=== PATIENT | female | born 1940 | race Caucasian/White ===

== ENCOUNTER 2018-10-08 06:39 | Emergency (ER) | payer MEDICARE ==
[~2018-10-08] VITALS: Ht 162.6 cm; Wt 90.7 kg
[~2018-10-08 06:39] MED LIST: ZITHROMAX250 MG PO
[2018-10-08] MEDS ORDERED: DOXYCYCLINE HY100 MG PO (08:21)
[2018-10-08] MEDS ORDERED: IBUPROFEN600 MG PO (08:21)
== END 2018-10-08 08:25 | disposition home or self-care (01) ==
LOC: ED 06:39
DX: J02.9 Acute pharyngitis, unspecified (principal)
CPT/HCPCS: 71045; 80053; 84443; 85025; 99283-25

== ENCOUNTER 2022-05-15 19:17 | Emergency (ER) | payer MEDICARE ==
[~2022-05-15] VITALS: Ht 162.6 cm; Wt 90.7 kg
[~2022-05-15 19:17] MED LIST changes: +DOXYCYCLINE HY100 MG PO; +IBUPROFEN600 MG PO
--- OUTSIDE RECORDS SUMMARY | 2022-05-15 19:24 | XMS ---
PreManage Notification: CORIN WILKINSON Security Cto Events No recent Security Events currently on file CRITERIA MET - Group Notification CARE PROVIDERS There are no care providers on record at this time. [facility] has no Care Guidelines for this patient. Daniel VISIT COUNT (12 MO.) 1 ANGELO [place] TOTAL 1 NOTE: Visits indicate total known visits. ED/C VISIT TRACKING (12 MO.) 05/15/2022 19:17 [facility] TYPE: Emergency COMPLAINT: - STROKE SYMPTOMS INPATIENT VISIT TRACKING (12 MO.) No inpatient visits to display in this time frame [email or web address]
--- NOTE | 2022-05-17 18:01 | EKG ---
[facility] [address] [facility] [place] [address] Signed Normal sinus rhythm Right bundle branch block Inferior infarct , age undetermined Abnormal ECG No previous ECGs available Confirmed by NICOLE BAUMAN MD ([id number]) on 05/17/2022 6:00:52 PM Electronically Signed By: NICOLE BAUMAN MD 05/17/221800 PATIENT NAME: CORIN WILKINSON JOSE CRUZ Electrocardiogram DATE OF : 38 PHYSICIAN: NICOLE BAUMAN MD REPORT #: [id number] REPORT IS CONFIDENTIAL AND NOT TO BE RELEASED WITHOUT AUTHORIZATION
== END 2022-05-16 02:21 | disposition short-term general hospital (02) ==
LOC: ED 19:17
DX: I21.4 Non-ST elevation (NSTEMI) myocardial infarction (principal); G40.909 Epilepsy, unspecified, not intractable, without status epilepticus; F03.90 Unspecified dementia, unspecified severity, without behavioral disturbance, psychotic disturbance, mood disturbance, and anxiety; M19.90 Unspecified osteoarthritis, unspecified site; Z20.822 Contact with and (suspected) exposure to COVID-19
CPT/HCPCS: 36415; 51702; 70450; 70496; 70498; 80053; 81001; 83880; 84484; 85025; 85610; 87502; 93005; 93010; 99285-25; C9803; J1644; J1953; J2060; J2270; J7040; Q9967; U0003

== ENCOUNTER 2023-04-11 17:00 | Emergency (ER) | payer MEDICARE | END 2023-04-11 20:26 | disposition home or self-care (01) | LOC: ED 17:00 | DX: N39.0 Urinary tract infection, site not specified (principal); M25.551 Pain in right hip; R29.6 Repeated falls; Z79.899 Other long term (current) drug therapy ==

== ENCOUNTER 2023-04-26 17:49 | Emergency (ER) | payer MEDICARE ==
[~2023-04-26] VITALS: Ht 162.6 cm; Wt 59.0 kg
--- OUTSIDE RECORDS SUMMARY | ~2023-04-26 | XMS | Continuity of Care Document ---
Demographics + + + | Address | [address] | | | [place] [address] | + + + | Preferred Language | Unknown | + + + | Marital Status | | + + + | Oriental Orthodox Affiliation | Unknown | + + + | Race | White | + + + | Ethnic Group | Not or | + + + Author + + + | Author | [facility] | + + + | Organization | [facility] | + + + | Address | [address] | | | [place] [address] | + + + | Phone | | + + + Care Team Providers + + + + | Care Professor Of Historical Theology Name | Role | Phone | + + + + Unavailable | Unavailable | + + + + Unavailable | Unavailable | + + + + Unavailable | Unavailable | + + + + Allergies and Intolerances + + + + + + | date | description | facility | reaction | severity | + + + + + + | (no date) | No Known | [facility] | (no reaction) | (no severity) | | | Allergies | | | | + + + + + + Encounters No information. Functional Status No information. Immunizations No information. Medications + + + + | date | description | facility | + + + + | 2023-04-11 00:00 | IBUPROFEN | [facility] | + + + + | 2022-05-16 00:00 | AZITHROMYCIN | [facility] | + + + + | 2023-04-11 00:00 | AZITHROMYCIN | [facility] | + + + + | 2023-04-11 00:00 | LEVETIRACETAM | [facility] | + + + + | 2023-04-11 00:00 | NITROFURANTOIN MONOHYD | [facility] | | | MACROCR | | + + + + | 2023-04-11 00:00 | ATORVASTATIN CALCIUM | [facility] | + + + + | 2023-04-11 00:00 | METOPROLOL TARTRATE | [facility] | + + + + Problems + + + + | date | description | facility | + + + + | 2016-12-10 00:00 | Encounter for medical | [facility] | | | screening examination | | + + + + | 2016-12-10 00:00 | Encounter for medical | [facility] | | | screening examination | | + + + + | 2018-10-08 00:00 | Pharyngitis | [facility] | + + + + | 2018-10-08 00:00 | Pharyngitis | [facility] | + + + + | 2022-05-15 19:17 | UNSPECIFIED DEMENTIA | [facility] | | | WITHOUT BEHAVIORAL | | | | DISTURBANC | | + + + + | 2022-05-15 19:17 | EPILEPSY, UNSP, NOT | [facility] | | | INTRACTABLE, WITHOUT STATUS | | | | EP | | + + + + | 2022-05-15 19:17 | NON-ST ELEVATION (NSTEMI) | [facility] | | | MYOCARDIAL INFARCTION | | + + + + | 2022-05-15 19:17 | UNSPECIFIED | [facility] | | | OSTEOARTHRITIS, UNSPECIFIED | | | | SITE | | + + + + | 2022-05-16 00:00 | Dementia | [facility] | + + + + | 2022-05-16 00:00 | Dementia | [facility] | + + + + | 2022-05-16 00:00 | Seizure disorder | [facility] | + + + + | 2022-05-16 00:00 | Seizure disorder | [facility] | + + + + | 2022-05-16 00:00 | Non-ST elevation | [facility] | | | myocardial infarction | | | | (NSTEMI) | | + + + + | 2022-05-16 00:00 | Non-ST elevation | [facility] | | | myocardial infarction | | | | (NSTEMI) | | + + + + | 2023-04-11 00:00 | Urinary tract infection | [facility] | + + + + | 2023-04-11 00:00 | Weakness | [facility] | + + + + | 2023-04-11 17:00 | PAIN IN RIGHT HIP | [facility] | + + + + | 2023-04-11 17:00 | URINARY TRACT INFECTION, | [facility] | | | SITE NOT SPECIFIED | | + + + + | 2023-04-11 17:00 | REPEATED FALLS | [facility] | + + + + | 2023-04-11 17:00 | WEAKNESS | [facility] | + + + + | 2023-04-11 17:00 | OTHER [facility] (CURRENT) | [facility] | | | DRUG THERAPY | | + + + + Procedures No information. Results/Labs +--------+--------+ +---------+--------+---------+ | test | date | facility | value | unit | notes | +--------+--------+ +---------+--------+---------+ + + | Result panel 1 | + + + + + +-------+ + + | | 2022-05-15 | [facility] | 3.1 | (missing) | (missing) | | (unavailable | [facility]:50 [facility] | | | + + + +-------+ + + + + | Result panel 2 | + + + + + +--------+ + + | | 2022-05-15 | [facility] | 1.00 | (missing) | (missing) | | (unavailable | 19:50 [facility] | | | | + + + +--------+ + + + + | Result panel 3 | + + + + + +-------+ + + | | 2022-05-15 | [facility] | 0.2 | (missing) | (missing) | | (unavailable | 19:50 [facility] | | | | + + + +-------+ + + + + | Result panel 4 | + + + + + +------+ + + | | 2022-05-15 | [facility] | 12 | (missing) | (missing) | | (unavailable | 19:50 [facility] | | | | + + + +------+ + + + + | Result panel 5 | + + + + + +------+ + + | | 2022-05-15 | [facility] | 12 | (missing) | (missing) | | (unavailable | 19:50 [facility] | | | | + + + +------+ + + + + | Result panel 6 | + + + + + +------+ + + | | 2022-05-15 | [facility] | 59 | (missing) | (missing) | | (unavailable | 19:50 [facility] | | | | + + + +------+ + + + + | Result panel 7 | + + + + + +-------+ + + | | 2022-05-15 | [facility] | 9.3 | (missing) | (missing) | | (unavailable | 19:50 [facility] | | | | + + + +-------+ + + + + | Result panel 8 | + + + + + +--------+ + + | | 2022-05-15 | [facility] | 3.99 | (missing) | (missing) | | (unavailable | 19:50 [facility] | | | | + + + +--------+ + + + + | Result panel 9 | + + + + + +--------+ + + | | 2022-05-15 | [facility] | 12.4 | (missing) | (missing) | | (unavailable | 19:50 [facility] | | | | + + + +--------+ + + + + | Result panel 10 | + + + + + +--------+ + + | | 2022-05-15 | [facility] | 36.6 | (missing) | (missing) | | (unavailable | 19:50 [facility] | | | | + + + +--------+ + + + + | Result panel 11 | + + + + + +--------+ + + | | 2022-05-15 | [facility] | 91.6 | (missing) | (missing) | | (unavailable | 19:50 [facility] | | | | + + + +--------+ + + + + | Result panel 12 | + + + + + +--------+ + + | | 2022-05-15 | [facility] | 31.0 | (missing) | (missing) | | (unavailable | 19:50 [facility] | | | | + + + +--------+ + + + + | Result panel 13 | + + + + + +--------+ + + | | 2022-05-15 | [facility] | 33.9 | (missing) | (missing) | | (unavailable | 19:50 [facility] | | | | + + + +--------+ + + + + | Result panel 14 | + + + + + +--------+ + + | | 2022-05-15 | [facility] | 14.0 | (missing) | (missing) | | (unavailable | 19:50 [facility] | | | | + + + +--------+ + + + + | Result panel 15 | + + + + + +-------+ + + | | 2022-05-15 | [facility] | 287 | (missing) | (missing) | | (unavailable | 19:50 [facility] | | | | + + + +-------+ + + + + | Result panel 16 | + + + + + +--------+ + + | | 2022-05-15 | [facility] | 82.4 | (missing) | (missing) | | (unavailable | 19:50 [facility] | | | | + + + +--------+ + + + + | Result panel 17 | + + + + + +--------+ + + | | 2022-05-15 | [facility] | 10.1 | (missing) | (missing) | | (unavailable | 19:50 [facility] | | | | + + + +--------+ + + + + | Result panel 18 | + + + + + +-------+ + + | | 2022-05-15 | [facility] | 5.5 | (missing) | (missing) | | (unavailable | 19:50 [facility] | | | | + + + +-------+ + + + + | Result panel 19 | + + + + + +-------+ + + | | 2022-05-15 | [facility] | 1.5 | (missing) | (missing) | | (unavailable | 19:50 [facility] | | | | + + + +-------+ + + + + | Result panel 20 | + + + + + +-------+ + + | | 2022-05-15 | [facility] | 0.5 | (missing) | (missing) | | (unavailable | 19:50 [facility] | | | | + + + +-------+ + + + + | Result panel 21 | + + + + + +--------+ + + | | 2022-05-15 | [facility] | 12.9 | (missing) | (missing) | | (unavailable | 19:50 [facility] | | | | + + + +--------+ + + + + | Result panel 22 | + + + + + +--------+ + + | | 2022-05-15 | [facility] | 0.99 | (missing) | (missing) | | (unavailable | 19:50 [facility] | | | | + + + +--------+ + + + + | Result panel 23 | + + + + + +-------+---------+ + | | 2022-05-15 | [facility] | 148 | mg/dL | (missing) | | (unavailable | 19:50 [facility] | | | | + + + +-------+---------+ + + + | Result panel 24 | + + + + + +------+---------+ + | | 2022-05-15 | [facility] | 15 | mg/dL | (missing) | | (unavailable | 19:50 [facility] | | | | + + + +------+---------+ + + + | Result panel 25 | + + + + + +--------+---------+ + | | 2022-05-15 | [facility] | 0.95 | mg/dL | (missing) | | (unavailable | 19:50 [facility] | | | | + + + +--------+---------+ + + + | Result panel 26 | + + + + + +------+ + + | | 2022-05-15 | [facility] | 59 | (missing) | (missing) | | (unavailable | 19:50 [facility] | | | | + + + +------+ + + + + | Result panel 27 | + + + + + +---------+ + + | | 2022-05-15 | [facility] | 15.78 | (missing) | (missing) | | (unavailable | 19:50 [facility] | | | | + + + +---------+ + + + + | Result panel 28 | + + + + + +-------+ + + | | 2022-05-15 | [facility] | 129 | (missing) | (missing) | | (unavailable | 19:50 [facility] | | | | + + + +-------+ + + + + | Result panel 29 | + + + + + +-------+ + + | | 2022-05-15 | [facility] | 3.4 | (missing) | (missing) | | (unavailable | 19:50 [facility] | | | | + + + +-------+ + + + + | Result panel 30 | + + + + + +------+ + + | | 2022-05-15 | [facility] | 95 | (missing) | (missing) | | (unavailable | 19:50 [facility] | | | | + + + +------+ + + + + | Result panel 31 | + + + + + +------+ + + | | 2022-05-15 | [facility] | 24 | (missing) | (missing) | | (unavailable | 19:50 [facility] | | | | + + + +------+ + + + + | Result panel 32 | + + + + + +--------+ + + | | 2022-05-15 | [facility] | 13.4 | (missing) | (missing) | | (unavailable | 19:50 [facility] | | | | + + + +--------+ + + + + | Result panel 33 | + + + + + +-------+---------+ + | | 2022-05-15 | [facility] | 8.2 | mg/dL | (missing) | | (unavailable | 19:50 [facility] | | | | + + + +-------+---------+ + + + | Result panel 34 | + + + + + +-------+ + + | | 2022-05-15 | [facility] | 6.2 | (missing) | (missing) | | (unavailable | 19:50 [facility] | | | | + + + +-------+ + + + + | Result panel 35 | + + + + + +-------+ + + | | 2022-05-15 | [facility] | 3.1 | (missing) | (missing) | | (unavailable | 19:50 [facility] | | | | + + + +-------+ + + + + | Result panel 36 | + + + + + + + + + | | 2022-05-15 | [facility] | NEGATIVE | (missing) | (missing) | | (unavailable | 20:23 [facility] | | | | + + + + + + + + + | Result panel 37 | + + + + + + + + + | | 2022-05-15 | [facility] | NEGATIVE | (missing) | (missing) | | (unavailable | 20:23 [facility] | | | + + + + + + + + + | Result panel 38 | + + + + + + + + + | | 2022-05-15 | [facility] | NEGATIVE | (missing) | (missing) | | (unavailable | 20:23 [facility] | | | | + + + + + + + + + | Result panel 39 | + + + + + + + + + | | 2022-05-15 | [facility] | NEGATIVE | (missing) | (missing) | | (unavailable | 20:23 [facility] | | | | + + + + + + + + + | Result panel 40 | + + + + + + + + + | | 2022-05-15 | [facility] | NEGATIVE | (missing) | (missing) | | (unavailable | 20:23 [facility] | | | | + + + + + + + + + | Result panel 41 | + + + + + + + + + | | 2022-05-15 | [facility] | NEGATIVE | (missing) | (missing) | | (unavailable | 20:23 [facility] | | | | + + + + + + + + + | Result panel 42 | + + + + + + + + + | | 2022-05-15 | [facility] | NEGATIVE | (missing) | (missing) | | (unavailable | 20:23 [facility] | | | + + + + + + + + + | Result panel 43 | + + + + + + + + + | | 2022-05-15 | [facility] | NEGATIVE | (missing) | (missing) | | (unavailable | 20:23 [facility] | | | | + + + + + + + + + | Result panel 44 | + + + + + + + + + | | 2022-05-15 | [facility] | NEGATIVE | (missing) | (missing) | | (unavailable | 20:23 [facility] | | | + + + + + + + + + | Result panel 45 | + + + + + + + + + | | 2022-05-15 | [facility] | NEGATIVE | (missing) | (missing) | | (unavailable | 20:23 [facility] | | | + + + + + + + + + | Result panel 46 | + + + + + + + + + | | 2022-05-15 | [facility] | NEGATIVE | (missing) | (missing) | | (unavailable | 20:23 [facility] | | | | + + + + + + + + + | Result panel 47 | + + + + + + + + + | | 2022-05-15 | [facility] | NEGATIVE | (missing) | (missing) | | (unavailable | 20:23 [facility] | | | | + + + + + + + + + | Result panel 48 | + + + + + + + + + | | 2022-05-15 | [facility] | NEGATIVE | (missing) | (missing) | | (unavailable | 20:23 [facility] | | | + + + + + + + + + | Result panel 49 | + + + + + + + + + | | 2022-05-15 | [facility] | YELLOW | (missing) | (missing) | | (unavailable | 20:23 [facility] | | | | + + + + + + + + + | Result panel 50 | + + + + + +---------+ + + | | 2022-05-15 | [facility] | CLEAR | (missing) | (missing) | | (unavailable | 20:23 [facility] | | | | + + + +---------+ + + + + | Result panel 51 | + + + + + + + + + | | 2022-05-15 | [facility] | NEGATIVE | (missing) | (missing) | | (unavailable | 20:23 [facility] | | | + + + + + + + + + | Result panel 52 | + + + + + + + + + | | 2022-05-15 | [facility] | NEGATIVE | (missing) | (missing) | | (unavailable | 20:23 [facility] | | | | + + + + + + + + + | Result panel 53 | + + + + + + + + + | | 2022-05-15 | [facility] | NEGATIVE | (missing) | (missing) | | (unavailable | 20:23 [facility] | | | + + + + + + + + + | Result panel 54 | + + + + + +---------+ + + | | 2022-05-15 | [facility] | 1.010 | (missing) | (missing) | | (unavailable | 20:23 [facility] | | | | + + + +---------+ + + + + | Result panel 55 | + + + + + + + + + | | 2022-05-15 | [facility] | TRACE-I | (missing) | (missing) | | (unavailable | 20:23 [facility] | | | | + + + + + + + + + | Result panel 56 | + + + + + +-------+ + + | | 2022-05-15 | [facility] | 6.5 | (missing) | (missing) | | (unavailable | 20:23 [facility] | | | | + + + +-------+ + + + + | Result panel 57 | + + + + + + + + + | | 2022-05-15 | [facility] | NEGATIVE | (missing) | (missing) | | (unavailable | 20:23 [facility] | | | + + + + + + + + + | Result panel 58 | + + + + + + + + + | | 2022-05-15 | [facility] | NORMAL | (missing) | (missing) | | (unavailable | 20:23 [facility] | | | + + + + + + + + + | Result panel 59 | + + + + + + + + + | | 2022-05-15 | [facility] | NEGATIVE | (missing) | (missing) | | (unavailable | 20:23 [facility] | | | | + + + + + + + + + | Result panel 60 | + + + + + + + + + | | 2022-05-15 | [facility] | NEGATIVE | (missing) | (missing) | | (unavailable | 20:23 [facility] | | | | + + + + + + + + + | Result panel 61 | + + + + + +-------+ + + | | 2022-05-15 | [facility] | 2-3 | (missing) | (missing) | | (unavailable | 20:23 [facility] | | | | + + + +-------+ + + + + | Result panel 62 | + + + + + +-------+ + + | | 2022-05-15 | [facility] | 0-1 | (missing) | (missing) | | (unavailable | 20:23 [facility] | | | | + + + +-------+ + + + + | Result panel 63 | + + + + + +-----+ + + | | 2022-05-15 | [facility] | 0 | (missing) | (missing) | | (unavailable | 20:23 [facility] | | | + + + +-----+ + + + + | Result panel 64 | + + + + + +------+ + + | | 2022-05-15 | [facility] | No | (missing) | (missing) | | (unavailable | 20:23 [facility] | | | + + + +------+ + + + + | Result panel 65 | + + + + + +--------+ + + | | 2022-05-15 | [facility] | CATH | (missing) | (missing) | | (unavailable | 20:23 [facility] | | | | + + + +--------+ + + + + | Result panel 66 | + + + + + +---------+ + + | | 2022-05-15 | [facility] | 194.9 | (missing) | (missing) | | (unavailable | 21:03 | [facility] | | | | + + + +---------+ + + + + | Result panel 67 | + + + + + + + + + | | 2022-05-15 | [facility] | NEGATIVE | (missing) | (missing) | | (unavailable | 21:40 | [facility] | | | | + + + + + + + + + | Result panel 68 | + + + + + + + + + | | 2022-05-15 | [facility] | NEGATIVE | (missing) | (missing) | | (unavailable | 21:40 [facility] | | | | + + + + + + + + + | Result panel 69 | + + + + + + + + + | | 2022-05-15 | [facility] | NEGATIVE | (missing) | (missing) | | (unavailable | 21:40 [facility] | | | | + + + + + + + + + | Result panel 70 | + + + + + + + + + | | 2022-05-15 | [facility] | NEGATIVE | (missing) | (missing) | | (unavailable | 21:40 [facility] | | | + + + + + + + + + | Result panel 71 | + + + + + + + + + | | 2023-04-11 | [facility] | YELLOW | (missing) | (missing) | | (unavailable | 18:35:07 [facility] | | | | + + + + + + + + + | Result panel 72 | + + + + + +---------+ + + | | 2023-04-11 | [facility] | CLEAR | (missing) | (missing) | | (unavailable | 18:35:07 [facility] | | | | + + + +---------+ + + + + | Result panel 73 | + + + + + + + + + | | 2023-04-11 | [facility] | NEGATIVE | (missing) | (missing) | | (unavailable | 18:35:07 [facility] | | | | + + + + + + + + + | Result panel 74 | + + + + + + + + + | | 2023-04-11 | [facility] | NEGATIVE | (missing) | (missing) | | (unavailable | 18:35:07 [facility] | | | | + + + + + + + + + | Result panel 75 | + + + + + + + + + | | 2023-04-11 | [facility] | NEGATIVE | (missing) | (missing) | | (unavailable | 18:35:07 [facility] | | | | + + + + + + + + + | Result panel 76 | + + + + + + + + + | | 2023-04-11 | [facility] | <=1.005 | (missing) | (missing) | | (unavailable | 18:35:07 [facility] | | | | + + + + + + + + + | Result panel 77 | + + + + + + + + + | | 2023-04-11 | [facility] | TRACE-I | (missing) | (missing) | | (unavailable | 18:35:07 [facility] | | | | + + + + + + + + + | Result panel 78 | + + + + + +-------+ + + | | 2023-04-11 | [facility] | 7.0 | (missing) | (missing) | | (unavailable | 18:35:07 [facility] | | | | + + + +-------+ + + + + | Result panel 79 | + + + + + + + + + | | 2023-04-11 | [facility] | NEGATIVE | (missing) | (missing) | | (unavailable | 18:35:07 [facility] | | | | + + + + + + + + + | Result panel 80 | + + + + + + + + + | | 2023-04-11 | [facility] | NORMAL | (missing) | (missing) | | (unavailable | 18:35:07 [facility] | | | + + + + + + + + + | Result panel 81 | + + + + + + + + + | | 2023-04-11 | [facility] | NEGATIVE | (missing) | (missing) | | (unavailable | 18:35:07 [facility] | | | | + + + + + + + + + | Result panel 82 | + + + + + + + + + | | 2023-04-11 | [facility] | MODERATE | (missing) | (missing) | | (unavailable | 18:35:07 [facility] | | | | + + + + + + + + + | Result panel 83 | + + + + + +-------+ + + | | 2023-04-11 | [facility] | 2-3 | (missing) | (missing) | | (unavailable | 18:35:07 [facility] | | | | + + + +-------+ + + + + | Result panel 84 | + + + + + +---------+ + + | | 2023-04-11 | [facility] | 12-20 | (missing) | (missing) | | (unavailable | 18:35:07 [facility] | | | | + + + +---------+ + + + + | Result panel 85 | + + + + + + + + + | | 2023-04-11 | [facility] | NONE SEEN | (missing) | (missing) | | (unavailable | 18:35:07 [facility] | | | | + + + + + + + + + | Result panel 86 | + + + + + + + + + | | 2023-04-11 | [facility] | NONE SEEN | (missing) | (missing) | | (unavailable | 18:35:07 [facility] | | | | + + + + + + + + + | Result panel 87 | + + + + + +--------+ + + | | 2023-04-11 | [facility] | RARE | (missing) | (missing) | | (unavailable | 18:35:07 [facility] | | | | + + + +--------+ + + + + | Result panel 88 | + + + + + + + + + | | 2023-04-11 | [facility] | NONE SEEN | (missing) | (missing) | | (unavailable | 18:35:07 [facility] | | | | + + + + + + + + + | Result panel 89 | + + + + + +-------+ + + | | 2023-04-11 | [facility] | Yes | (missing) | (missing) | | (unavailable | 18:35:07 [facility] | | | | + + + +-------+ + + + + | Result panel 90 | + + + + + + + + + | | 2023-04-11 | [facility] | CLEAN CATCH | (missing) | (missing) | | (unavailable | 18:35:07 [facility] | | | | + + + + + + + + + | Result panel 91 | + + + + + +-------+ + + | | 2023-04-11 | [facility] | 8.2 | (missing) | (missing) | | (unavailable | 18:42:07 [facility] | | | | + + + +-------+ + + + + | Result panel 92 | + + + + + +--------+ + + | | 2023-04-11 | [facility] | 69.5 | (missing) | (missing) | | (unavailable | 18:42:07 [facility] | | | | + + + +--------+ + + + + | Result panel 93 | + + + + + +--------+ + + | | 2023-04-11 | [facility] | 17.6 | (missing) | (missing) | | (unavailable | 18:42:07 [facility] | | | | + + + +--------+ + + + + | Result panel 94 | + + + + + +--------+ + + | | 2023-04-11 | [facility] | 11.0 | (missing) | (missing) | | (unavailable | 18:42:07 [facility] | | | | + + + +--------+ + + + + | Result panel 95 | + + + + + +-------+ + + | | 2023-04-11 | [facility] | 1.1 | (missing) | (missing) | | (unavailable | 18:42:07 [facility] | | | | + + + +-------+ + + + + | Result panel 96 | + + + + + +-------+ + + | | 2023-04-11 | [facility] | 0.8 | (missing) | (missing) | | (unavailable | 18:42:07 [facility] | | | | + + + +-------+ + + + + | Result panel 97 | + + + + + +--------+ + + | | 2023-04-11 | [facility] | 3.65 | (missing) | (missing) | | (unavailable | 18:42:07 [facility] | | | | + + + +--------+ + + + + | Result panel 98 | + + + + + +--------+ + + | | 2023-04-11 | [facility] | 11.5 | (missing) | (missing) | | (unavailable | 18:42:07 [facility] | | | | + + + +--------+ + + + + | Result panel 99 | + + + + + +------+---------+ + | | 2023-04-11 | [facility] | 91 | mg/dL | (missing) | | (unavailable | 18:42:07 [facility] | | | | + + + +------+---------+ + + + | Result panel 100 | + + + + + +------+---------+ + | | 2023-04-11 | [facility] | 12 | mg/dL | (missing) | | (unavailable | 18:42:07 [facility] | | | | + + + +------+---------+ + + + | Result panel 101 | + + + + + +--------+---------+ + | | 2023-04-11 | [facility] | 0.90 | mg/dL | (missing) | | (unavailable | 18:42:07 [facility] | | | | + + + +--------+---------+ + + + | Result panel 102 | + + + + + +------+ + + | | 2023-04-11 | [facility] | 63 | (missing) | (missing) | | (unavailable | 18:42:07 [facility] | | | | + + + +------+ + + + + | Result panel 103 | + + + + + +---------+ + + | | 2023-04-11 | [facility] | 13.33 | (missing) | (missing) | | (unavailable | 18:42:07 [facility] | | | | + + + +---------+ + + + + | Result panel 104 | + + + + + +--------+ + + | | 2023-04-11 | [facility] | 32.6 | (missing) | (missing) | | (unavailable | 18:42:07 [facility] | | | | + + + +--------+ + + + + | Result panel 105 | + + + + + +-------+ + + | | 2023-04-11 | [facility] | 128 | (missing) | (missing) | | (unavailable | 18:42:07 [facility] | | | | + + + +-------+ + + + + | Result panel 106 | + + + + + +-------+ + + | | 2023-04-11 | [facility] | 3.7 | (missing) | (missing) | | (unavailable | 18:42:07 [facility] | | | | + + + +-------+ + + + + | Result panel 107 | + + + + + +------+ + + | | 2023-04-11 | [facility] | 93 | (missing) | (missing) | | (unavailable | 18:42:07 | [facility] | | | | [facility] | | [facility] | | | | + + + +------+ + + + + | Result panel 108 | + + + + + +------+ + + | | 2023-04-11 | [facility] | 29 | (missing) | (missing) | | (unavailable | 18:42:07 | [facility] | | | | + + + +------+ + + + + | Result panel 109 | + + + + + +-------+ + + | | 2023-04-11 | [facility] | 9.7 | (missing) | (missing) | | (unavailable | 18:42:07 | [facility] | | | | + + + +-------+ + + + + | Result panel 110 | + + + + + +-------+---------+ + | | 2023-04-11 | [facility] | 8.7 | mg/dL | (missing) | | (unavailable | 18:42:07 [facility] | | | | + + + +-------+---------+ + + + | Result panel 111 | + + + + + +-------+ + + | | 2023-04-11 | [facility] | 6.4 | (missing) | (missing) | | (unavailable | 18:42:07 [facility] | | | | + + + +-------+ + + + + | Result panel 112 | + + + + + +-------+ + + | | 2023-04-11 | [facility] | 3.5 | (missing) | (missing) | | (unavailable | [facility]42:07 [facility] | | | | + + + +-------+ + + + + | Result panel 113 | + + + + + +-------+ + + | | 2023-04-11 | [facility] | 2.9 | (missing) | (missing) | | (unavailable | [facility]:42:07 [facility] | | | | + + + +-------+ + + + + | Result panel 114 | + + + + + +--------+ + + | | 2023-04-11 | [facility] | 1.21 | (missing) | (missing) | | (unavailable | [facility]42:07 [facility] | | | | + + + +--------+ + + + + | Result panel 115 | + + + + + +--------+ + + | | 2023-04-11 | [facility] | 89.1 | (missing) | (missing) | | (unavailable | [facility]:42:07 [facility] | | | | + + + +--------+ + + + + | Result panel 116 | + + + + + +-------+ + + | | 2023-04-11 | [facility] | 0.3 | (missing) | (missing) | | (unavailable | [facility]42:07 [facility] | | | | + + + +-------+ + + + + | Result panel 117 | + + + + + +------+ + + | | 2023-04-11 | [facility] | 14 | (missing) | (missing) | | (unavailable | [facility]42:07 [facility] | | | | + + + +------+ + + + + | Result panel 118 | + + + + + +------+ + + | | 2023-04-11 | [facility] | 17 | (missing) | (missing) | | (unavailable | [facility]:42:07 [facility] | | | | + + + +------+ + + + + | Result panel 119 | + + + + + +------+ + + | | 2023-04-11 | [facility] | 92 | (missing) | (missing) | | (unavailable | 18:42:07 [facility] | | | | + + + +------+ + + + + | Result panel 120 | + + + + + +--------+ + + | | 2023-04-11 | [facility] | 31.6 | (missing) | (missing) | | (unavailable | [facility]:42:07 [facility] | | | | + + + +--------+ + + + + | Result panel 121 | + + + + + +--------+ + + | | 2023-04-11 | [facility] | 35.4 | (missing) | (missing) | | (unavailable | [facility]:42:07 [facility] | | | | + + + +--------+ + + + + | Result panel 122 | + + + + + +--------+ + + | | 2023-04-11 | [facility] | 14.1 | (missing) | (missing) | | (unavailable | [facility]:42:07 [facility] | | | | + + + +--------+ + + + + | Result panel 123 | + + + + + +-------+ + + | | 2023-04-11 | [facility] | 276 | (missing) | (missing) | | (unavailable | 18:42:07 [facility] | | | | + + + +-------+ + + Social History No information. Vital Signs + + + +---------+ | date | measurement | value | units | + + + +---------+ | 2022-05-15 00:00 | BMI | 34.3 | kg/m2 | + + + +---------+ | 2022-05-15 00:00 | height_metric | 162.56 | cm | + + + +---------+ | 2022-05-15 00:00 | height_standard | 64 | in | + + + +---------+ | 2022-05-15 00:00 | weight_metric | 90.72 | kg | + + + +---------+ | 2022-05-15 00:00 | weight_standard | 200 | lb | + + + +---------+ | 2022-05-16 00:00 | BP_diastolic | 70 | mmHg | + + + +---------+ | 2022-05-16 00:00 | BP_systolic | 103 | mmHg | + + + +---------+ | 2022-05-16 00:00 | heart_rate | 83 | /min | + + + +---------+ | 2022-05-16 00:00 | o2_saturation | 97 | % | + + + +---------+ | 2022-05-16 00:00 | respiration_rate | 20 | /min | + + + +---------+ | 2022-05-16 00:00 | temperature_metric | 37.83 | C | | | | | | + + + +---------+ | 2022-05-16 00:00 | | 100.1 | F | | | temperature_standar | | | | | d | | | + + + +---------+ | 2023-04-11 00:00 | BMI | 34.3 | kg/m2 | + + + +---------+ | 2023-04-11 00:00 | BP_diastolic | 69 | mmHg | + + + +---------+ | 2023-04-11 00:00 | BP_systolic | 159 | mmHg | + + + +---------+ | 2023-04-11 00:00 | heart_rate | 55 | /min | + + + +---------+ | 2023-04-11 00:00 | height_metric | 162.56 | cm | + + + +---------+ | 2023-04-11 00:00 | height_standard | 64 | in | + + + +---------+ | 2023-04-11 00:00 | o2_saturation | 97 | % | + + + +---------+ | 2023-04-11 00:00 | respiration_rate | 20 | /min | + + + +---------+ | 2023-04-11 00:00 | temperature_metric | 37.06 | C | | | | | | + + + +---------+ | 2023-04-11 00:00 | | 98.7 | F | | | temperature_standar | | | | | d | | | + + + +---------+ | 2023-04-11 00:00 | weight_metric | 90.72 | kg | + + + +---------+ | 2023-04-11 00:00 | weight_standard | 200 | lb | + + + +---------+"
[~2023-04-26 17:49] MED LIST changes: +ATORVASTATIN CA40 MG PO; +LEVETIRACETAM500 MG PO; +MACROBID 100 M100 MG PO; +METOPROLOL TART25 MG PO
--- OUTSIDE RECORDS SUMMARY | 2023-04-26 17:58 | XMS ---
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 [facility] has no Care Guidelines for this patient. [facility] MO[facility] NOTE: Visits indicate total known visits. 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 DIAGNOSES: - Non-ST elevation (NSTEMI) myocardial infarction - Unspecified convulsions - NSTEMI [email or web address]
[2023-04-26 18:23] LABS: BASOPHILS 0.6 % (0-2); EOSINOPHILS 0.4 % (0-6); HEMATOCRIT 35.7 % (35.0-50.0); HEMOGLOBIN 12.2 g/dL (12.0-18.0); LYMPHOCYTES 9.1 % (24-44); MCH 30.9 (27-36); MCHC 34.2 g/dl (30-36); MCV 90.3 fl (81-99); NEUTROPHILS 83.9 % (39-80); PLATELET COUNT 259 K/uL (140-440); RBC 3.96 M/ul (4.3-5.7); RDW 14.2 (10.5-15.0)
[2023-04-26 18:40] LABS: ALBUMIN 3.3 g/dL (3.4-5.0); ALBUMIN/GLOBULIN RATIO 0.92 (1.1-2.4); ANION GAP 9.8 (7-21); BILIRUBIN, TOTAL 0.6 ng/dL (0.2-1.0); BUN/CREATININE RATIO 14.63 (6.0-28.6); CALCIUM 8.9 mg/dL (8.5-10.1); CREATININE, SERUM 0.82 mg/dL (0.55-1.02); MAGNESIUM 1.8 mg/dL (1.8-2.4); POTASSIUM 3.8 mmol/L (3.5-5.1); PROTEIN, TOTAL 6.9 g/dL (6.4-8.2)
[2023-04-26 19:48] LABS: BILIRUBIN, URINE NEGATIVE (negative); BLOOD/HGB, URINE TRACE-I (Negative); KETONE, URINE NEGATIVE (Negative); LEUK ESTERASE, URINE NEGATIVE (negative); NITRITE, URINE NEGATIVE (negative)
[2023-04-26 19:56] LABS: BACTERIA, URINE NONE SEEN /hpf (negative); CASTS, URINE NONE SEEN \\lpf; COLLECTION TYPE, URINE CLEAN CATCH; CRYSTALS, URINE NONE SEEN (0-1+); EPITHELIAL CELLS, URINE NONE SEEN /lpf (0-1+); RED BLOOD CELLS, URINE 0-1 /hpf (0-5); REFLEX CULTURE, URINE No (No); WHITE BLOOD CELLS, URINE 0-1 /HPF (0-5)
[2023-04-26 20:22] VITALS: BP 156/61
--- NOTE | 2023-04-27 05:39 | EKG ---
[facility] [address] [facility] [address] [place], [place] [address] Signed Sinus bradycardia Right bundle branch block Abnormal ECG When compared with ECG of 15-MAY-2022 20:05, No significant change was found Confirmed by WOODROW CHOUDHARY MD ([id number]) on 04/27/2023 5:39:40 AM Electronically Signed By: WOODROW CHOUDHARY 04/27/23 0539 PATIENT NAME: SYLVESTER WILKINSONOTHY JOSE CRUZ Electrocardiogram DATE OF : 38 PHYSICIAN: WOODROW CHOUDHARY REPORT #: [id number] REPORT IS CONFIDENTIAL AND NOT TO BE RELEASED WITHOUT AUTHORIZATION
== END 2023-04-26 20:24 | disposition home or self-care (01) ==
LOC: ED 17:49
PROVIDERS: Emergency Medicine
DX: R42 Dizziness and giddiness (principal); I25.2 Old myocardial infarction; Z86.73 Personal history of transient ischemic attack (TIA), and cerebral infarction without residual deficits; Z79.899 Other long term (current) drug therapy
CPT/HCPCS: 36415; 70450; 71045; 80053; 81001; 83735; 84484; 85025; 93005; 93010; 99285-25

== ENCOUNTER 2023-07-13 12:42 | Emergency (ER) | payer MEDICARE ==
[~2023-07-13] VITALS: Ht 162.6 cm; Wt 58.0 kg
--- OUTSIDE RECORDS SUMMARY | 2023-07-13 12:45 | XMS ---
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 [facility] has no Care Guidelines for this patient. Daniel VISIT COUNT (12 MO.) 4 ANGELO [place] TOTAL 4 NOTE: Visits indicate total known visits. ED/UCC VISIT TRACKING (12 MO.) 07/13/2023 12:42 [facility] [place] TYPE: Emergency COMPLAINT: - FALL 05/07/2023 16:26 [facility] TYPE: Emergency COMPLAINT: - FALL/WEAKNESS DIAGNOSES: - Contact with and (suspected) exposure to COVID-19 - Elevated white blood cell count, unspecified - Encounter for examination and observation for other specified reasons - History of falling - Old myocardial infarction - Other jail (current) drug therapy - Other specified abnormalities of plasma proteins - Personal history of transient ischemic attack (TIA), and cerebral infarction without residual deficits - Problems related to living alone - Repeated falls 04/26/2023 17:49 [facility] [place] TYPE: Emergency COMPLAINT: - WEAKNESS DIAGNOSES: - Dizziness and giddiness - Old myocardial infarction - Other jail (current) drug therapy - Personal history of transient ischemic attack (TIA), and cerebral infarction without residual deficits - Syncope and collapse 04/11/2023 17:00 [facility] [place] TYPE: Emergency COMPLAINT: - WEAKNESS DIAGNOSES: - Other terminologist (current) drug therapy - Pain in right hip - Repeated falls - Urinary tract infection, site not specified - Weakness INPATIENT VISIT TRACKING (12 MO.) No inpatient visits to display in this time frame [email or web address]
[2023-07-13 14:37] VITALS: BP 131/98
== END 2023-07-13 14:36 | disposition home or self-care (01) ==
LOC: ED 12:42
DX: S01.81XA Laceration without foreign body of other part of head, initial encounter (principal); R29.6 Repeated falls; W19.XXXA Unspecified fall, initial encounter; Y93.01 Activity, walking, marching and hiking; Z79.899 Other long term (current) drug therapy
CPT/HCPCS: 12011; 70450; 72125; 99283-25

== ENCOUNTER 2023-12-20 15:11 | Inpatient (IN) | payer MEDICARE ==
[~2023-12-20] VITALS: Ht 162.6 cm; Wt 59.9 kg
--- OUTSIDE RECORDS SUMMARY | 2023-12-20 15:18 | XMS ---
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 [facility] has no Care Guidelines for this patient. Daniel VISIT COUNT (12 MO.) 5 ANGELO Eugene TOTAL 5 NOTE: Visits indicate total known visits. ED/UCC VISIT TRACKING (12 MO.) 12/20/2023 15:11 [facility] [place] TYPE: Emergency COMPLAINT: - FALL 07/13/2023 12:42 [facility] [place] TYPE: Emergency COMPLAINT: - FALL DIAGNOSES: - Activity, walking, marching and hiking - Headache, unspecified - Laceration without foreign body of other part of head, initial encounter - Other terminal superintendent (current) drug therapy - Repeated falls - Unspecified fall, initial encounter 05/07/2023 16:26 [facility] [place] TYPE: Emergency COMPLAINT: - FALL/WEAKNESS DIAGNOSES: - Contact with and (suspected) exposure to COVID-19 - Elevated white blood cell count, unspecified - Encounter for examination and observation for other specified reasons - History of falling - Old myocardial infarction - Other terminal superintendent (current) drug therapy - Other specified abnormalities of plasma proteins - Personal history of transient ischemic attack (TIA), and cerebral infarction without residual deficits - Problems related to living alone - Repeated falls 04/26/2023 17:49 [facility] [place] TYPE: Emergency COMPLAINT: - WEAKNESS DIAGNOSES: - Dizziness and giddiness - Old myocardial infarction - Other long-term (current) drug therapy - Personal history of transient ischemic attack (TIA), and cerebral infarction without residual deficits - Syncope and collapse 04/11/2023 17:00 [facility] [place] TYPE: Emergency COMPLAINT: - WEAKNESS DIAGNOSES: - Other terminal superintendent (current) drug therapy - Pain in right hip - Repeated falls - Urinary tract infection, site not specified - Weakness INPATIENT VISIT TRACKING (12 MO.) No inpatient visits to display in this time frame [email or web address]
[2023-12-20 16:18] LABS: BASOPHILS 0.2 % (0-2); EOSINOPHILS 0.1 % (0-6); HEMATOCRIT 33.8 % (35.0-50.0); HEMOGLOBIN 11.6 g/dL (12.0-18.0); MCH 31.5 (27-36); MCHC 34.4 g/dl (30-36); MCV 91.6 fl (81-99); NEUTROPHILS 89.7 % (39-80); PLATELET COUNT 246 K/uL (140-440); RBC 3.69 M/ul (4.3-5.7); RDW 13.8 (10.5-15.0)
[2023-12-20 16:23] LABS: PARTIAL THROMBOPLASTIN TIME 28.3 Sec (22.9-41.3)
[2023-12-20 16:24] LABS: INR 1.01 (0.80-1.30); PROTIME 12.6 Sec (11.2-14.2)
[2023-12-20 16:26] LABS: ALBUMIN 3.2 g/dL (3.4-5.0); ANION GAP 11.6 (7-21); BILIRUBIN, TOTAL 0.8 ng/dL (0.2-1.0); BUN/CREATININE RATIO 15.9 (6.0-28.6); CALCIUM 8.5 mg/dL (8.5-10.1); CREATININE, SERUM 0.88 mg/dL (0.55-1.02); POTASSIUM 3.6 mmol/L (3.5-5.1); PROTEIN, TOTAL 6.4 g/dL (6.4-8.2)
[2023-12-20] MEDS ORDERED: LIDOCAINE 2% VISCOUS 6 ML SYR TOP ONE (17:00)
[2023-12-20] MEDS ORDERED: HYDROmorphone HCL 1 MG/ML SYR IV PRN (17:00)
[2023-12-20] MEDS ORDERED: SODIUM CHLORIDE 0.9% 1,000 ML IV SCH (17:15)
[2023-12-20 17:52] VITALS: BP 148/69
--- NOTE | 2023-12-20 18:29 | NUR ---
PT TO FLOOR VIA STRETCHER WITH SUMIT PEDROZA. PT AWAKE AND TALKATIVE. ROLLED PT TO REMOVE BEDPAN AND CHANGE OUT SHEETS. PT HAD SMALL BM. PT DENIES KNOWING SHE WAS ON BEDPAN. SKIN INTACT. HIP PAIN RATED 5\10. PULSES FAINT BUT EQUAL. . PLACED ON BEDSIDE CPOX DUE TO IV PAIN MEDS. HR OF 37 NOTED ON MONITOR AND THEN FELT AT WRIST. CALLED SELENE FOR TELE ORDER.
--- NOTE | 2023-12-20 19:26 | NUR ---
REPORT RECIEVED FROM DAY SHIFT RN. PATIENT RESTING IN BED WITH EYES CLOSED. RESPIRATIONS EVEN AND UNLABORED. CALL LIGHT IN REACH.
--- NOTE | 2023-12-20 20:10 | NUR ---
TO FLOOR, IN ROOM ASSESSING pt. NEW ORDERS RECEIVED AND REPEATED BACK FOR URINE AND BLOOD CULTURES. pt RESTING IN BED WITH BED ALARM ON. CLAIM ATTORNEY NOW IN ROOM. URINE DRAWN SENT TO LAB. [facility] DRAINING CLOUDY URINE.
[2023-12-20 20:13] LABS: BILIRUBIN, URINE NEGATIVE (negative); BLOOD/HGB, URINE LARGE (Negative); KETONE, URINE NEGATIVE (Negative); LEUK ESTERASE, URINE LARGE (negative); NITRITE, URINE NEGATIVE (negative)
[2023-12-20 20:18] LABS: BACTERIA, URINE 1+ /hpf (negative); CASTS, URINE NONE SEEN \\lpf; CRYSTALS, URINE NONE SEEN (0-1+); EPITHELIAL CELLS, URINE SQUAMOUS 1+ /lpf (0-1+); REFLEX CULTURE, URINE Yes (No); WHITE BLOOD CELLS, URINE >50 /HPF (0-5)
[2023-12-20 20:55] VITALS: BP 133/61
[2023-12-20] MEDS ORDERED: CEFTRIAXONE/SODIUM CHLORIDE 1 GM/100 ML PIGGYBACK IV SCH (21:00)
[2023-12-20] MEDS ORDERED: ACETAMINOPHEN 1,000 MG/100 ML VIAL IV PRN (21:00)
--- NOTE | 2023-12-20 21:11 | NUR ---
PATIENT RESTING IN BED. VS AND I&Os OBTAINED AND RECORDED. IV FLUSHED AND WNL. ASSESSMENT COMPLETE. PATIENT DENIES PAIN. CATHETER CARE PROVIDED PER PROTOCOL. PATIENT HAS NO FURTHER NEEDS. CALL LIGHT IN REACH.
--- NOTE | 2023-12-20 21:59 | NUR ---
PATIENT RESTING IN BED. NEW BAG IV FLUID INFUSING PER ORDER. NO FURTHER NEEDS. CALL LIGHT IN REACH.
--- NOTE | 2023-12-20 23:23 | NUR ---
PATIENT RESTING IN BED WITH EYES CLOSED. RESPIRATIONS EVEN AND UNLABORED. CALL LIGHT IN REACH.
[2023-12-21] VITALS (12 sets, daily range): BP systolic 108–167; BP diastolic 48–109
--- NOTE | 2023-12-21 01:20 | NUR ---
PATIENT RESTING IN BED WITH EYES CLOSED. RESPIRATIONS EVEN AND UBLABORED. CALL LIGHT IN REACH. O2 97%.
--- NOTE | 2023-12-21 02:30 | NUR ---
NEW BAG IV FLUID INFUSING PER ORDER. PATIENT DENIES PAIN. NO FURTHER NEEDS. CALL LIGHT IN REACH.
--- NOTE | 2023-12-21 03:16 | NUR ---
PATIENT REPORTING PAIN IN L HIP. PRN PAIN MEDICATION ADMINSITERED. NO FURTHER NEEDS. CALL LIGHT IN REACH.
--- NOTE | 2023-12-21 04:19 | NUR ---
PATIENT TEARFUL STATING 10/10 LEFT HIP PAIN. PRN PAIN MEDICATION ADMINISTERED. VS AND I&Os OBTAINED AND RECORDED. ASSESSMENT COMPLETE. NO FURTHER NEEDS. CALL LIGHT IN REACH.
[2023-12-21 05:41] LABS: BASOPHILS 0.6 % (0-2); EOSINOPHILS 0.8 % (0-6); HEMATOCRIT 30.5 % (35.0-50.0); HEMOGLOBIN 10.5 g/dL (12.0-18.0); LYMPHOCYTES 9.8 % (24-44); MCH 31.8 (27-36); MCHC 34.5 g/dl (30-36); MONOCYTES 6.9 % (0-12); NEUTROPHILS 81.9 % (39-80); PLATELET COUNT 216 K/uL (140-440); RBC 3.32 M/ul (4.3-5.7); RDW 13.9 (10.5-15.0)
--- NOTE | 2023-12-21 05:45 | NUR ---
PATIENT RESTING IN BED. PRE-PROCEDURE WIPE DOWN COMPLETE. PRN PAIN MEDICATION ADMINISTERED PER PATIENT REQUEST. CALL LIGHT IN REACH.
[2023-12-21 05:48] LABS: ANION GAP 11.1 (7-21); BUN/CREATININE RATIO 13.63 (6.0-28.6); CALCIUM 7.4 mg/dL (8.5-10.1); CREATININE, SERUM 0.88 mg/dL (0.55-1.02); POTASSIUM 4.1 mmol/L (3.5-5.1)
--- NOTE | 2023-12-21 06:33 | EKG ---
[facility] [address] [facility] [facility] [place] [address] Signed Normal sinus rhythm Left axis deviation Right bundle branch block , known Abnormal ECG When compared with ECG of 07-MAY-2023 18:03, QRS duration has increased Criteria for Inferior infarct are no longer present Confirmed by Jaki Welch ([id number]) on 12/21/2023 6:33:49 AM Electronically Signed By: JAKI WELCH MD 12/21/23 0633 PATIENT NAME: WILKINSONSYLVESTERCORIN JOSE CRUZ Electrocardiogram DATE OF : 38 PHYSICIAN: JAKI WELCH MD REPORT #: [id number] REPORT IS CONFIDENTIAL AND NOT TO BE RELEASED WITHOUT AUTHORIZATION
[2023-12-21] MEDS ORDERED: TRANEXAMIC ACID IN NACL,ISO-OS 200 ML IV ONE (06:36)
[2023-12-21] MEDS ORDERED: CEFAZOLIN SODIUM 2 GM/20 ML SYR IV SCH (07:00)
[2023-12-21] MEDS ORDERED: TRANEXAMIC ACID 2,000 MG in SODIUM CHLORIDE 0.9% 100 ML IV SCH (07:00)
[2023-12-21] MEDS ORDERED: INTRA-ARTICULAR ANALGESIC INJECTION XX SCH (07:09)
[2023-12-21] MEDS ORDERED: ondansetron HCL 4 MG/2 ML VIAL ONE (07:14)
[2023-12-21] MEDS ORDERED: BUPIVACAINE 0.75% IN DEXTROSE 2 ML AMP ONE (07:14)
[2023-12-21] MEDS ORDERED: LIDOCAINE HCL 2% 5 ML SDV ONE ×2 (07:14→07:15)
[2023-12-21] MEDS ORDERED: propofoL 200 MG/20 ML VIAL ONE (07:14)
[2023-12-21] MEDS ORDERED: KETAMINE in NS 50 MG/5 ML SYR ONE (07:14)
--- NOTE | 2023-12-21 07:25 | NUR ---
REPORT RECEIVED FROM [employer] SPACELIFT RN MARTIN. PATIENT IS IN SURGERY AT THIS TIME.
[2023-12-21] MEDS ORDERED: TRANEXAMIC ACID IN NACL,ISO-OS 1,000 MG/100 ML PIGGYBACK IV ONE ×2 (08:00→10:04)
[2023-12-21] MEDS ORDERED: ACETAMINOPHEN 1,000 MG/100 ML VIAL ONE (08:05)
--- NOTE | 2023-12-21 08:05 | NUR ---
UR CLINICAL REVIEW: MCG AND 2 MN VERSALUS RULE MEDICARE NO AUTH NEEDED INPATIENT 12/20/23 AT 1655 DC PLAN PENDING POST OP RECOVERY AND PT/OT EVALS POSTOP.
[2023-12-21] MEDS ORDERED: PHENYLEPHRINE HCL 10 MG/ML VIAL ONE (08:12)
[2023-12-21] MEDS ORDERED: LACTATED RINGER'S 1,000 ML IV ONE (08:12)
[2023-12-21] MEDS ORDERED: fentaNYL citrate 50 MCG/ML SDV IV PRN (08:15)
[2023-12-21] MEDS ORDERED: HYDROmorphone HCL 1 MG/ML SYR IV PRN (08:15)
[2023-12-21] MEDS ORDERED: PROCHLORPERAZINE EDISYLATE 10 MG/2 ML VIAL IV PRN (08:15)
[2023-12-21] MEDS ORDERED: droPERidol 5 MG/2 ML VIAL IV PRN (08:15)
[2023-12-21] MEDS ORDERED: HYDROCODONE/ACETA 7.5/325 TAB PO PRN (08:15)
[2023-12-21] MEDS ORDERED: ondansetron HCL 4 MG/2 ML VIAL IV PRN (08:15)
[2023-12-21] MEDS ORDERED: NALOXONE HCL 0.4 MG SYR IV PRN (08:15)
[2023-12-21] MEDS ORDERED: IBLOOD GLUCOSE TEST STRIP 1 EA TEST VI PRN (08:15)
--- NOTE | 2023-12-21 08:41 | NUR ---
12/21/23 0841 Izabela Hill PATIENT ARRIVES IN PACU AND SLIGHTLY OPENS EYES TO MY VOICE. SHE RETURNS TO RESTING QUIETLY WHEN UNSTIMULATED.
--- NOTE | 2023-12-21 09:10 | NUR ---
PATIENT RETURNED TO THE FLOOR AND REPORT RECEIVED FROM RERE Lopez VITAL SIGNS TAKEN AND DOCUMENTED IN THE CHART.
--- NOTE | 2023-12-21 09:34 | NUR ---
FULL ASSESSMENT COMPLETE AND DOCUMENTED IN THE CHART. LUNG SOUNDS ARE CLEAR AND PATIENT IS ON 2L NC DUE TO PATIENT BEING LETHARGIC WITH THE CPOX AT BEDSIDE. PATIENT IS ALERT AND ORIENTED. CARDIAC WITH NORMAL S1 AND S2. IV IN THE RIGHT AC FLUSHED WELL WITH 10 ML NORMAL SALINE. NS INFUSING AT 125 ML/HR AT THIS TIME. IV DRESSING IS CLEAN, DRY, AND INTACT. BOWEL TONES ARE ACTIVE IN ALL FOUR QUADRANTS. SENSATION INTACT AND PATIENT WITH NO COMPLAINTS OF NUMBNESS AND TINGLING AT THIS TIME. PATIENT WITH NO COMPLAINTS OF PAIN AT THIS TIME. SCD IS ON THE RIGHT LOWER EXTREMITY. DRESSING ON THE LEFT HIP IS CLEAN, DRY, AND INTACT. ICE IS ON THE LEFT HIP WITH BARRIER BETWEEN THE ICE AND THE SKIN. DRESSING ON THE COCCYX FROM OR. PATIENT WITH BHARDWAJ CATHETER IN PLACE AND THE BHARDWAJ BAG IS EMPTY. PATIENT STATED NO FURTHER NEEDS AT THIS TIME. CALL LIGHT AND PERSONAL BELONGINGS ARE WTIHIN REACH.
[2023-12-21] MEDS ORDERED: TRANEXAMIC ACID 2,000 MG in SODIUM CHLORIDE 0.9% 100 ML IV ONE (09:39)
--- NOTE | 2023-12-21 10:02 | NUR ---
PATIENT IN BED AT THIS TIME. VITALS AND I&O'S CHARTED. CALL LIGHT WITHIN REACH, NO FURTHER NEEDS AT THIS TIME.
--- NOTE | 2023-12-21 10:27 | NUR ---
SECOND SET OF POST OP VITALS COMPLETE AND DOCUMENTED IN THE CHART. TXA IS INFUSING AT THIS TIME. PATIENT WITH NO COMPLAINTS OF PAIN AT THIS TIME. PATIENT WITH A CUP OF ICE WATER AT THE BEDSIDE. PATIENT STATED NO FURTHER NEEDS AT THIS TIME. CALL LIGHT AND PERSONAL BELONGINGS ARE WITHIN REACH.
--- NOTE | 2023-12-21 11:27 | NUR ---
medications reconciled
--- NOTE | 2023-12-21 11:35 | NUR ---
PATIENT ALERT AND ORIENTED IN BED. SURGERY THIS AM. PATIENT VERIFIES DEMOGRAPHICS. PATIENT STATES SHE DOES HAVE PCP, NONE IS LISTED, REGISTRATION NOTIFIED. PATIENT LIVES ALONE IN SINGLE LEVEL HOME, NO STAIRS. STATES SHE HAS A WALKER AND A CANE AT HOME, STATES SHE ALSO HAS A SHOWER CHAIR. PATIENT DOES NOT DRIVE. HER FRIEND, EMILIA, DOES HER GROCERY SHOPPING FOR HER AND DRIVES HER AROUND WHEN SHE NEEDS TRANSPORTATION. DENIES ANY FINANCIAL HARDSHIP. ABLE TO PAY UTILITIES, PAY FOR FOOD AND MEDICATIONS WITH NO DIFFICULTY. STATES SHE WILL NOT GO TO A SNF AT [place]. 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 WILL DISCUSS FURTHER AFTER PT/OT WORK WITH HER AND EVALUATE WHERE SHE IS AND HER SAFETY LEVEL IN THE NEXT DAY OR TWO.
--- NOTE | 2023-12-21 12:18 | NUR ---
PT. SITTING UP IN BED EATING LUNCH. VITAL SIGNS TAKEN. PT TAKEN OFF 1L NC AND MOVED TO ROOM AIR, SATURATION AT 96%
[2023-12-21] MEDS ORDERED: METOPROLOL TARTRATE 25 MG TAB PO SCH (12:59)
[2023-12-21] MEDS ORDERED: levETIRAcetam 500 MG TAB PO SCH (12:59)
[2023-12-21] MEDS ORDERED: CEFDINIR 300 MG CAP PO SCH (13:15)
--- NOTE | 2023-12-21 13:37 | NUR ---
PATIENT IS SITTING UPRIGHT IN BED WITH VISITOR AT THE BEDSIDE. 1400 VITAL SIGNS TAKEN AND DOCUMENTED IN THE CHART. 1200 AND 1300 MEDICATIONS ADMINSITERED PER THE EMAR. PATIETN WITH NO PAIN AT THIS TIME. PATIENT STATED NO FURTHER NEEDS AT THIS TIME. CALL LIGHT AND PERSONAL BELONGINGS ARE WITHIN REACH.
--- NOTE | 2023-12-21 14:43 | NUR ---
VISITED DURING SPIRITUAL CARE ROUNDS. LISTENED PT TALKED OF LIFE EXPERIENCES; NILSA STRUGGLES. GAVE REASSURANCE, EXPLORED EVIDENCE OF DIVINE ACTIVITY IN LIFE, PROVIDED HOSPITALITY, ENCOURAGED FOCUS ON PRESENT. PT EXPRESSED GRATITUDE.
--- NOTE | 2023-12-21 16:58 | NUR ---
PATIENT NEW BAG OF NS INFUSING AT 125 ML/HR AT THIS TIME. PATIENT WITH NEW ICE PACK ON THE LEFT HIP WITH BARRIER BETWEEN THE SKIN AND THE ICE PACK. PATIENT WITH NO COMPLAINTS OF PAIN AT THIS TIME. LEFT HIP DRESSING IS CLEAN, DRY, AND INTACT. FERNANDO AND BHARDWAJ CARE COMPLETE. PATIENT STATED NO FURTHER NEEDS AT THIS TIME. CALL LIGHT AND PERSONAL BELONGINGS ARE WITHIN REACH.
--- NOTE | 2023-12-21 18:42 | NUR ---
PATIENT IN BED AT THIS TIME. VITALS AND I&O'S CHARTED. CALL LIGHT WITHIN REACH, NO FURTHER NEEDS AT THIS TIME.
--- NOTE | 2023-12-21 19:36 | NUR ---
REPORT RECIEVED FROM DAY SHIFT RN. PATIENT RESTING IN BED WITH EYES CLOSED. RESPIRATIONS EVEN AND UNLABORED. CALL LIGHT IN REACH.
[2023-12-21] MEDS ORDERED: SENNOSIDES 1 TAB PO SCH (21:00)
[2023-12-21] MEDS ORDERED: MAGNESIUM HYDROXIDE 30 ML UDC PO SCH (21:00)
--- NOTE | 2023-12-21 22:00 | NUR ---
PATIENT RESTING IN BED. SCHEDULED MEDICATIONS ADMINISTERED. ASSESSMENT COMPLETE. PATIENT REPORTS 03/07 IN L HIP. PATIENT L HIP DRESSING C/D/I. PRN PAIN MEDICATION ADMINISTERED, SEE OCT. PATIENT IV FLUSHED WNL. SCDs IN PLACE. BED ALARM ON FOR SAFETY. PATIENT HAS NO FURTHER NEEDS. CALL LIGHT IN REACH. FRESH WATER AND ICE PACK PROVIDED. CALL LIGHT IN REACH.
--- NOTE | 2023-12-21 23:17 | NUR ---
PATIENT REPOSITIONED IN BED. BILAT HIPS FLOATED WITH PILLOWS. SCDs IN PLACE. THIS RN EDUCATED PATIENT ON WHY WE NEEDED TO REPOSTION HER. PATIENT STATED "I KNOW BED SORES! I ALREADY HAD BED SORES BEFORE COMING IN HERE FROM BEING IN BED SO MUCH". PATIENT HAS NO FURTHER NEEDS. CALL LIGHT IN REACH.
[2023-12-22] VITALS (9 sets, daily range): BP systolic 117–145; BP diastolic 48–87
--- NOTE | 2023-12-22 00:16 | NUR ---
PATIENT RESTING IN BED WITH EYES CLOSED. RESPIRATIONS EVEN AND UNLABORED. CALL LIGHT IN REACH.
--- NOTE | 2023-12-22 01:06 | NUR ---
PATIENT IV PUMP ALARMING. THIS RN EDUCATED PATIENT WE WERE TO START A NEW IV SINCE HER CURRENT IV KEEPS MAKING THE PUMP ALARM. PATIENT RIPPED OUT OWN IV. THIS PATIENT AND SWATCH MAKER APPLIED PRESSURE AND WRAPPED OLD IV SITE WITH GAUZE. NEW IV PLACED IN LEFT FOREARM. PATIENT HAS NO FURTHER NEEDS. CALL LIGHT IN REACH.
--- NOTE | 2023-12-22 02:40 | NUR ---
PATIENT RESTING IN BED. VS AND I&Os OBTAINED AND RECORDED. PATIENT REPORTS PAIN IN L HIP. PRN PAIN MEDICATION ADMINSTERED PER PATIENT REQUEST. FRESH ICE WATER PROVIDED. PATIENT HAS NO FURTHER NEEDS. CALL LIGHT IN REACH. TEDHOSE AND HEEL PROTECTORS IN PLACE. ICE ON L HIP.
--- NOTE | 2023-12-22 04:00 | NUR ---
PATIENT RESTING IN BED WITH EYES CLOSED. RESPIRATIONS EVEN AND UNLABORED. CALL LIGHT IN REACH.
--- NOTE | 2023-12-22 05:26 | NUR ---
FIELD SALES CONSULTANT ENTERED ROOM TO TAKE VITALS. VITALS AND I AND O RECORDED. PT STATES NO FURHTER NEEDS AT THIS TIME. CALL LIGHT WITHIN REACH.
--- NOTE | 2023-12-22 05:33 | NUR ---
PATIENT RESTING IN BED. ASSESSMENT COMPLETE. PATIENT DENIES PAIN. L HIP DRESSING C/D/I. FRESH ICE PACK PROVIDED. TEDHOSE AND HEEL PROTECTORS IN PLACE. PATIENT HAS NO FURTHER NEEDS. CALL LIGHT IN REACH.
[2023-12-22 05:40] LABS: BASOPHILS 0.4 % (0-2); EOSINOPHILS 3.9 % (0-6); HEMATOCRIT 26.6 % (35.0-50.0); HEMOGLOBIN 9.3 g/dL (12.0-18.0); LYMPHOCYTES 12.7 % (24-44); MCH 31.8 (27-36); MCHC 34.8 g/dl (30-36); MCV 91.2 fl (81-99); MONOCYTES 9.6 % (0-12); NEUTROPHILS 73.4 % (39-80); PLATELET COUNT 181 K/uL (140-440); RBC 2.91 M/ul (4.3-5.7); RDW 14.1 (10.5-15.0)
[2023-12-22 05:59] LABS: BUN/CREATININE RATIO 15.66 (6.0-28.6); CALCIUM 7.2 mg/dL (8.5-10.1); CREATININE, SERUM 0.83 mg/dL (0.55-1.02)
--- NOTE | 2023-12-22 06:53 | NUR ---
PATIENT REPORTS BEING HUNGRY. PUDDING AND JUICE PROVIDED. PATIENT STATES 8/10M PAIN IN L HIP. PRN PAIN MEDICATION ADMINISTERED. NO FURTHER NEEDS. CALL LIGHT IN REACH.
--- NOTE | 2023-12-22 07:30 | NUR ---
RECEIVED REPORT FROM SUMIT SALAZAR. PT AWAKE IN BED, STATES NO NEEDS AT THIS TIME. CALL LIGHT WITHIN REACH, ASSUMING CARE OF PT.
--- NOTE | 2023-12-22 07:31 | NUR ---
SPOKE WITH DR. MORTON, RECOMMENDING SNF. WILL DISCUSS WITH PATIENT AND FRIEND, EMILIA, REGARDING PLACEMENT OPTIONS.
--- NOTE | 2023-12-22 07:35 | OR ---
[facility] [address] [place], [place] [address] Signed DATE OF OPERATION: 12/21/2023 SURGEON: Wilman Arias MD PREOPERATIVE DIAGNOSIS: Femoral neck fracture left, displaced. POSTOPERATIVE DIAGNOSIS: Femoral neck fracture left, displaced. PROCEDURE PERFORMED: Left bipolar hemiarthroplasty. SHOPPING CENTRE MANAGER: Namrata Perry PA-C. Namraat was present and critical for all portions of procedure. ANESTHESIA: Spinal. BLOOD LOSS: 140 mL. IMPLANTS: Raffaele Echo FX size 9 stem, 44 bipolar head and +0 head. BRIEF HISTORY: Corin is an 83-year-old female, who suffered a ground level fall yesterday. She was seen in the ER and radiographs showed a displaced femoral neck fracture. She was admitted to my service, cleared by the Medicine Service and was stable for surgery this morning. Risks, benefits, and alternatives of bipolar were discussed with her and she elected to proceed. PROCEDURE IN DETAIL: Once consent was obtained, she was taken to the operating room. After adequate anesthesia, she was placed on the operating room table in right lateral decubitus position. All downside pressure points were well padded. An axillary roll was placed. The leg was then prepped and draped from the iliac crest to the toes. The incision was made in the standard anterior lateral approach taken through the skin and subcutaneous tissue. The IT band was divided longitudinally. The vastus lateralis was divided along Electronically Signed By: WILMAN ARIAS MD 12/22/23 0735 PATIENT NAME: CORIN WILKINSON OPERATIVE REPORT DATE OF : 38 REPORT #: [id number] PHYSICIAN: WILMAN ARIAS MD PCP: NO PRIMARY CARE PHYSICIAN REPORT IS CONFIDENTIAL AND NOT TO BE RELEASED WITHOUT AUTHORIZATION [facility] [address] [place], [place] [address] Signed the anterior margin of the femur from the tip of the trochanter distally and proximally along the anterior margin of the gluteus medius. This was taken through the capsule and minimus. This flap was then elevated off the anterior femoral neck around to the level of the lesser trochanter. The femoral fracture was a subcapital, so the femoral neck was then shortened with a fingerbreadth above the lesser trochanter. The femoral head was then removed with ease. This was measured to 44, and a 44 fit quite nicely in the acetabulum. Attention was then turned to proximal femur which was opened using the Ketchuppp cutter followed by the Chartomekaey awl. It was then sequentially broached up to a 9. The 9 was found to be well fitting. The 9 stem was then selected and impacted until it was well seated on the femoral neck cut. A +0 head and 44 bipolar were assembled and placed on the femoral neck. This was impacted in position. Hip was reduced. The leg lengths were found to be equal. She had good rotation with a negative Shuck test. There was no impingement. The wound was copiously irrigated with one bottle of Surgiphor followed by normal saline. The periarticular soft tissues were injected with 80 mL of ropivacaine and Toradol mixture. The capsule was then closed using #2 FiberWire. The vastus and IT band layers were closed independently using #1 Stratafix, subcutaneous tissue with 0 Stratafix and the skin with niesha. Wound was dressed with Acticoat-7 dressing. She was awakened and taken to recovery room in satisfactory condition. All sponge, needle, and instrument counts were correct. Wilman Arias MD BA/ALINAL /[id number] Copies: ~ Electronically Signed By: WILMAN ARIAS MD 12/22/23 0735 PATIENT NAME: CORIN WILKINSON JOSE CRUZ OPERATIVE REPORT DATE OF : 38 REPORT #: [id number] PHYSICIAN: WILMAN ARIAS MD PCP: NO PRIMARY CARE PHYSICIAN REPORT IS CONFIDENTIAL AND NOT TO BE RELEASED WITHOUT AUTHORIZATION
[2023-12-22] MEDS ORDERED: Rivaroxaban 10 MG TAB PO SCH (08:00)
--- NOTE | 2023-12-22 08:28 | NUR ---
PT SITTING UP IN BED TO EAT BREAKFAST, TAKES PO MEDICATIONS W/O DIFFICUTLEY. PT STATES NO FURTHER NEEDS AT THIS TIME. CALL LIGHT WITHIN REACH.
[2023-12-22] MEDS ORDERED: ATORVASTATIN 40 MG TAB PO SCH (09:00)
--- NOTE | 2023-12-22 09:03 | NUR ---
PT WAS SITTING AT 87-88% ON RA, CPOX IN PLACE, ADVISED PT TO TAKE SOME DEEP BREATHS. UNABLE TO IMPROVE O2 LEVEL, 2L NC PLACED ON PATIENT, SATS 93% AT THIS TIME. PT DENIED SOB OR DIFFICULTY BREATHING WHEN ASSESSED. PT BROKE MAN ARRIVED IN ROOM AT THIS TIME, CALL LIGHT KAYDEN MONDRAGON. PRIMARY RN UPDATED.
--- NOTE | 2023-12-22 09:27 | NUR ---
PT RESTING IN BED WITH FAMILY FRIEND WHO IS SAYING GOODBYES. IV FLUIDS ARE COMPLETED, SALINE LOCKED AT THIS TIME. CALL LIGHT WITHIN REACH, ALL PT CARE NEEDS MET. PT OFFERED FRESH ICE WATER BUT DECLINED.
--- NOTE | 2023-12-22 09:52 | NUR ---
PT WORKING WITH PHYSICAL THERAPY AT THIST TIME. PT ABLE TO STAND, SCANT BM PRESENT, FERNANDO CARE COMPLETED. JOSEPH ON COCCYX C/D/I. PHYSICAL THERAPY REMAINS IN ROOM, CALL LIGHT WITHIN REACH.
--- NOTE | 2023-12-22 10:09 | NUR ---
AFTER PHYSICAL THERAPY AND OCCUPATIONAL THERAPY PUT PATIENT IN THE CHAIR. AFTER VITALS WERE THAN WE PUT A WAFFLE MATRESS ON HER BED AND NEW LINENS.
--- NOTE | 2023-12-22 10:30 | NUR ---
PT UP TO CHAIR AFTER WORKING WITH PHYSICAL THERAPY. BHARDWAJ CATHETER DC'D WNL. PT VERBALIZES UNDERSTANDING TO USE CALL LIGHT WHEN NEEDING TO USE THE RESTROOM. NO EDEMA PRESENT. L HIP DRESSING C/D/I. FERNANDO CARE COMPLETED ONCE CATHETER REMOVED. JUAN DIEGO HOSE IN PLACE, NON-SLIP SOCKS IN PLACE. PT BEGINS FALLING ASLEEP AFTER ASSESSMENT COMPLETE, O2 SATURATION DECREASES TO 87% PER CPOX, PT PLACED ON 1L O2 VIA NC, O2 SATURATION REMAINS >90% ONCE PT BEGINS TO FALL ASLEEP AGAIN. PT ASKS FOR CHICKEN BROTH, GIVEN. PT STATES NO FURTHER NEEDS AT THIS TIME, CALL LIGHT AND BUTTON WITHIN REACH.
--- NOTE | 2023-12-22 10:48 | NUR ---
ATTEMPTED TO VISIT DURING SPIRITUAL CARE ROUNDS. PT IN CONFERENCE WITH MEDICAL STAFF. DID NOT INTERRUPT. PROVIDED PRAYER.
--- NOTE | 2023-12-22 11:30 | NUR ---
Pt requested to be assisted into bed and Pt noted having indigestion. Notified RN. RN educated Pt on staying upright in chair for lunch and helping indigestion. Provided Pt new CPOX monitor finger attachment. Call light left in reach. Chair alarm set. No other needs expressed by Pt.
--- NOTE | 2023-12-22 12:03 | NUR ---
Provided Pt with magazines/catalogs/newspapers to read. No other needs expressed by Pt. Call light left in reach and chair alarm on.
--- NOTE | 2023-12-22 12:29 | NUR ---
PT STATES SHE NEEDS TO GO BACK TO BED, ATTEMPTS TO STAND FROM CHAIR, THIS RN AND SNs TO BEDSIDE. PT EDUCATED ON IMPORTANCE OF USING CALL LIGHT TO AMBULATE. CHAIR MOVED NEXT TO BED, PT PIVOTS TO BED FROM CHAIR WITH 2PA AND FWW. PT BOOSTED IN BED. PT RATES PAIN 10/10 AFTER AMBULATING AND MOVING IN BED, REQUESTS PRN PAIN MEDICATION, PRN NORCO GIVEN. PT REQUESTS ICE WATER, GIVEN. PT STATES NO FURTHER NEEDS AT THIS TIME, CALL LIGHT WITHIN REACH.
--- NOTE | 2023-12-22 15:45 | NUR ---
IN CPOX ALARMING. PT NOTED TO BE RESTING IN BED SEMI-FOWLERS. RR EVEN AND UNLABORED, EYES CLOSED. CPOX NOTED TO SHOW 64% ON 1L NC AND NO PULSE RATE NOTED. PT AWAKENS WHEN ADDRESSED. PTs HAND WITH CPOX STICKER NOTED TO BE CLUTCHED. WHEN PT AWAKENS AND RESPONDS O2 SATS INCREASE 93% ON 1L NC. NO PULSE RATE NOTED. NEW CPOX STICKER PLACED AND O2 SATS AND PULSE RATE NOTED. PULSE RATE OF 58 NOTED AND O2 SATS OF 95% ON 1L NC NOTED. NICOLE EASON REMAINS IN ROOM. NO OTHER NEEDS FROM THIS RN AT THIS TIME. CALL LIGHT IN REACH. BED ALARM ON. SIDE RAILS UP X4 FOR SAFTEY.
--- NOTE | 2023-12-22 17:00 | NUR ---
IN WITH SN JEFFERSON AND NICOLE EASON TO BLADDER SCAN PT, SEE I&Os. ASKED PT TO ATTEMPT TO VOID ON BSC. PT AGREEABLE. NICOLE EASON AND SAMREEN SRT IN TO ASSIST PT TO BED. NO OTHER NEEDS FROM THIS RN AT THIS TIME.
--- NOTE | 2023-12-22 17:09 | NUR ---
IN WITH SUMIT KEYES AND NICOLE EASON TO ASSESS PT WITH BLADDER SCANNER. PT REPORTS NO URGE TO URINATE AND IS CURRENTLY DRY. BLADDER SCAN X3, HIGHEST AMOUNT 311ML. NICOLE EASON AND SRT IN TO ASSIST PT TO BSC. NO OTHER NEEDS NOTED AT THIS TIME.
--- NOTE | 2023-12-22 18:04 | NUR ---
ROUND 1745 PT GOT PUT TO THE BSC AND WAS THERE FOR ABT 10-15 MIN. AND DIDNT DO ANYTHING ELSE. CALL LIGHT IS WITHIN REACH.
[2023-12-22] MEDS ORDERED: SODIUM CHLORIDE 0.9% 1,000 ML IV SCH (18:30)
--- NOTE | 2023-12-22 20:07 | NUR ---
REPORT RECIEVED FROM DAY SHIFT RN. PATIENT RESTING IN BED WITH EYES CLOSED. RESPIRATIONS EVEN AND UNLABORED. CALL LIGHT IN REACH.
--- NOTE | 2023-12-22 20:42 | NUR ---
PATIENT RESTING IN BED. VS AND I&Os OBTAINED AND RECORDED. SCHEDULED MEDICATION ADMINISTERED. PATIENT REPORTS PAIN IN L HIP. PRN PAIN MEDICATION ADMINISTERED. PATIENT HAS NO FURTHER NEEDS. CALL LIGHT IN REACH. IV FLUSHED WNL. WARM BLANKET AND JUICE PROVIDED. PATIENT REPOSTIONED IN BED. NEW [place] IN PLACE. TEDHOSE, HEEL PROTECTORS AND SCDs IN PLACE.
--- NOTE | 2023-12-22 23:22 | NUR ---
PT EXPRESSED THE NEED TO USE THE BSC. SUPERVISOR CAR INSTALLATIONS ENTERED ROOM AND FOUND THAT PT HAD REMOVED HER GOWN. SUPERVISOR CAR INSTALLATIONS ASSISTED PT WITH PUTING GOWN BACK ON. SCDS AND HEEL PROTECTORS REMOVED. SUPERVISOR CAR INSTALLATIONS NOTED THAT HIP DRESSING HAD COME OFF. RN NOTIFIED AND RN ENTERED ROOM. RN REPLACED DRESSING AND RN AND SUPERVISOR CAR INSTALLATIONS ASSISTED PT TO BSC. BED LINENS STRAIGHTEND. RN AND SUPERVISOR CAR INSTALLATIONS ASSISTED PT BACK TO BED AND ASSISTED WITH BED BATH WIPES AND NEW GOWN. FRESH CHUCKS PLACED UNDER PT. SCDS AND HEEL PROTECTORS AND JUAN DIEGO HOSE PUT BACK IN PLACE. PT STATED NO FURTHER NEEDS AT THIS TIME. CALL LIGHT PLACED WITHIN REACH.
[2023-12-23] VITALS (9 sets, daily range): BP systolic 147–177; BP diastolic 50–99
--- NOTE | 2023-12-23 00:31 | NUR ---
PATIENT RESTING IN BED ON BACK WITH EYES CLOSED. RESPIRATIONS EVEN AND UNLABORED. O2 98% ON 2L NC. CALL LIGHT IN REACH.
--- NOTE | 2023-12-23 02:00 | NUR ---
ROUNDING ON PATIENT. PATIENT HAD REMOVED GOWN AND WAS LYING IN BED. PATIENT REPORTS NEEDING TO URINATE. PATIENT UP TO BSC WITH 2PA. PATIENT BACK TO BED. ASSESSMENT COMPLETE. L HIP DRESSING C/D/I. PATIENT REPORTS L HIP PAIN, ESPECIALLY WITH MOVEMENT. PRN PAIN MEDICATION ADMINISTERED. PATIENT BACK TO BED. TEDHOSE, HEEL PROTECTORS, AND SCDs IN PLACE. ICE PACK PLACED ON HIP. PATIENT DENIES FURTHER NEEDS. CALL LIGHT IN REACH.
--- NOTE | 2023-12-23 04:27 | NUR ---
PATIENT REPORTING NEEDING TO VOID. PATIENT UP TO BSC WITH 2PA TO VOID. PATIENT BACK TO BED. PATIENT L LEG APPEARS TO BE LESS STIFF. PATIENT APPEARS LESS PAINFUL WITH MOVEMENT. PATIENT BACK TO BED. TEDHOSE, HEEL PROTECTORS, AND SCDs IN PLACE. FRESH ICE PLACED ON L HIP. VS AND I&Os OBTAINED AND RECORDED. FRESH WATER PROVIDED. PATIENT HAS NO FURTHER NEEDS. CALL LIGHT IN REACH.
[2023-12-23 05:26] LABS: BASOPHILS 0.6 % (0-2); EOSINOPHILS 3.2 % (0-6); HEMATOCRIT 28.3 % (35.0-50.0); HEMOGLOBIN 9.7 g/dL (12.0-18.0); LYMPHOCYTES 11.6 % (24-44); MCH 31.8 (27-36); MCHC 34.5 g/dl (30-36); MCV 92.3 fl (81-99); MONOCYTES 12.5 % (0-12); NEUTROPHILS 72.1 % (39-80); PLATELET COUNT 192 K/uL (140-440); RBC 3.07 M/ul (4.3-5.7); RDW 13.8 (10.5-15.0)
[2023-12-23 05:35] LABS: ANION GAP 11.2 (7-21); BUN/CREATININE RATIO 13.58 (6.0-28.6); CALCIUM 7.6 mg/dL (8.5-10.1); CREATININE, SERUM 0.81 mg/dL (0.55-1.02); POTASSIUM 4.2 mmol/L (3.5-5.1)
--- NOTE | 2023-12-23 05:44 | NUR ---
PATIENT UP TO [facility] TO VOID. PATIENT BACK TO BED. PATIENT REPORTS 8/10 L HIP PAIN. PRN PAIN MEDICATION ADMINISERED PER PATIENT REQUEST. SCDs, TEDHOSE, HEEL PROTECTORS AND FRESH ICED PLACED ON LEFT HIP. NO FURTHER NEEDS. CALL LIGHT IN REACH.
[2023-12-23] MEDS ORDERED: POLYETHYLENE GLYCOL 3350 1 PACKET PO PRN (07:45)
--- NOTE | 2023-12-23 08:30 | NUR ---
PT ASSISTED TO BEDSIDE COMMODE WITH 2PA AND FWW. PT TOLERATED WELL. PT BACK IN BED, CALL LIGHT WITHIN REACH.
--- NOTE | 2023-12-23 09:42 | NUR ---
Chart faxed to [facility] for review.
--- NOTE | 2023-12-23 09:52 | NUR ---
DR AMOS AT BEDSIDE DISCUSSING PLAN OF CARE WITH PT AND CAREGIVER. PT DENIES NEEDS, RESTING IN BED TALKING WITH CAREGIVER. CALL LIGHT WITHIN REACH.
--- NOTE | 2023-12-23 10:43 | NUR ---
UNABLE TO VISIT DURING SPIRITUAL CARE ROUNDS; PT WORKING WITH PHYSICAL THERAPY. PROVIDED PRAYER.
--- NOTE | 2023-12-23 11:35 | NUR ---
REFERRAL WITH CHART FAXED TO [facility] AND [facility].
--- NOTE | 2023-12-23 11:40 | NUR ---
REPOSITIONED PT TO THE RIGHT SIDE. DRESSING ON COCCYX CHANGED, COCCYX SKIN INTACT, SLIGHT REDDNESS NOTED, BLANCHABLE. CALL LIGHT IN REACH. BED ALARM ON FOR SAFETY.
--- NOTE | 2023-12-23 12:18 | NUR ---
SPOKE WITH MARCIO AT [facility]. NO BED AVAILABILITY FOR 1-2 WEEKS.
--- NOTE | 2023-12-23 12:55 | NUR ---
PT USED CALL LIGHT TO USE COMMODE. 2PA, FWW. CLEAN BRIEF ON. ONCE IN BED PT REPOSITIONED, BLANKETS APPLIED. CALL LIGHT IN REACH. BED ALARM ON.
--- NOTE | 2023-12-23 14:10 | NUR ---
BLOOD PRESSURES RISING, PT IS LAYING IN BED, FAMILY AT BEDSIDE NO SIGNS OF DISTRESS. MD NOTIFIED. MANUAL BLOOD PRESSURE 170/50. MD AT BEDSIDE TO ASSESS. MD SAID MAY BE PAIN RELATED. SCHEDULED MEDS ORDERED FOR BP.
[2023-12-23] MEDS ORDERED: hydrALAZINE HCL 20 MG/ML VIAL IV PRN (14:45)
[2023-12-23] MEDS ORDERED: lisinopriL 2.5 MG TABLET PO SCH (14:45)
--- NOTE | 2023-12-23 19:27 | NUR ---
RECEIVED REPORT FROM DAY SHIFT RN. PATIENT IS RESTING IN RECLINER. PATIENT DENIES ANY NEEDS AT THIS TIME. CALL LIGHT IN REACH.
--- NOTE | 2023-12-23 22:02 | NUR ---
PATIENTS VITALS TAKEN AND RECORDED. INTAKE AND OUTPUTU RECORDED. PATIENT ASSISTED TO BED FROM CHAIR A 2PA W/FWW. PATIENT PAINFUL WITH MOVEMENT. PATIENT RATES PAIN AT AN 8/10, PRN PAIN MEDICATION GIVEN PER ORDER. PATIENTS PM MEDS GIVEN PER ORDER. IV FLUSHED. PATIENT IS IN BED RESDTING. SCDS, HEEL PROTECTORS IN PLACE. PATIENT PROVIDED FRESH ICE WATER. PATIENT DENIES ANY FURTHER NEEDS. CALL LIGHT IN REACH. BED ALARM ON FOR SAFETY.
--- NOTE | 2023-12-23 22:12 | NUR ---
PATIENT IS RESTING IN BED WITH EYES CLSOED, RR 14. CALL LIGHT IN REACH. BED ALARM ON FOR SAFETY.
--- NOTE | 2023-12-23 22:38 | NUR ---
MOTOR BLOCK MECHANIC TOOK VITALS PER RN REQUEST. PT RESTING IN BED AND STATED NO FURTHER NEEDS AT THIS TIME. CALL LIGHT LEFT WITHIN REACH.
--- NOTE | 2023-12-23 23:58 | NUR ---
PATIENT IS RESTING IN BED WITH EYES CLOSED, RR 15 CALL LIGHT IN REACH. BED ALARM ON FOR SAFETY.
[2023-12-24] VITALS (7 sets, daily range): BP systolic 157–181; BP diastolic 58–94
--- NOTE | 2023-12-24 00:46 | NUR ---
GOT REPORT FROM CUTTER FIRST NURSE. PATIENT NEEDS IV FLUIDS HOOKED UP. INTO DO THIS. PATIENT AWAKE AND TRYING TO GET OUT OF BED BUT DOESNT KNOW WHAT FOR. NURSE TURNED TV ON TO HELP GET HER MIND ON SOMETHING ELSE. IV FLUIDS RUNNING. SCDS ON PATIENT. BED ALARM ON, BED IN LOW POSTION. PATIENT HAS ORAL FLUIDS AT BEDSIDE.
--- NOTE | 2023-12-24 02:06 | NUR ---
PATIENT HELPED UP TO BSC. PATIENT IS A 2PA. PATIENT KEPT TRYING TO SIT DOWN BEFORE IT WAS TIME. PATIENT NEEDS LOTS OF DIRECTION. PATIENT WAS ABLE TO URINATE AND PUT BACK TO BED. PATIENT MOVED UP IN BED, CALL LIGHT WITHIN REACH, TV ON FOR HER, SCDS ON WITH HEAL PROTECTORS, BED IN LOW, BED ALARM ON, WARM BLANKET GIVEN. PATIENT CLOSING EYES WHEN NURSE LEFT ROOM.
--- NOTE | 2023-12-24 02:36 | NUR ---
PATIENT CURRENTLY SLEEPING, REGULAR RESPIRATIONS NOTED.
--- NOTE | 2023-12-24 04:22 | NUR ---
PATIENT UP TO THE BSC TO URINATE. PATIENT WAS ABLE TO VOID. PATIENT TOLERATED WELL AND DID BETTER THIS TIME. PATIENT WOULD LIKE TO KEEP HEAL PROTECTORS OFF FOR A LITTLE BIT. SCDS ARE ON. PATIENT GIVEN WATER AND CHAPSTICK. BED IN LOW POSTION, BED ALARM ON. CALL LIGHT WITHIN REACH.
[2023-12-24 05:37] LABS: BASOPHILS 0.5 % (0-2); EOSINOPHILS 2.2 % (0-6); HEMATOCRIT 29.3 % (35.0-50.0); HEMOGLOBIN 10.5 g/dL (12.0-18.0); LYMPHOCYTES 12.1 % (24-44); MCH 32.4 (27-36); MCHC 35.9 g/dl (30-36); MCV 90.1 fl (81-99); MONOCYTES 13.2 % (0-12); PLATELET COUNT 205 K/uL (140-440); RBC 3.25 M/ul (4.3-5.7)
[2023-12-24 05:45] LABS: ANION GAP 11.8 (7-21); BUN/CREATININE RATIO 11.84 (6.0-28.6); CALCIUM 7.8 mg/dL (8.5-10.1); CREATININE, SERUM 0.76 mg/dL (0.55-1.02); POTASSIUM 3.8 mmol/L (3.5-5.1)
--- NOTE | 2023-12-24 05:54 | NUR ---
PATIENT UP TO THE BSC. PATIENT THINKS SHE NEEDS TO HAVE HER MORNING URINATION. PATIENT IS ABLE TO URINATE. HELPED BACK TO BED. SCDS ON, HEAL PROTECTORS ON, PATIENT HAS CALL LIGHT WITHIN REACH.
--- NOTE | 2023-12-24 07:00 | NUR ---
REPORT RECEIVED FROM SUMIT MANTILLA. PT LAYING IN BED SEMI-FOWLERS. DR. AMOS IN ROOM. PT AND DR. AMOS CONVERSING. PT DENIES ANY NEEDS FROM THIS RN AT THIS TIME. CALL LIGHT IN REACH. BED ALARM ON.
[2023-12-24] MEDS ORDERED: NITROFURANTOIN MONOHYD MACROCR 100 MG CAP PO SCH (08:00)
[2023-12-24] MEDS ORDERED: TRIMETHOPRIM/SULFAMETHOXAZOLE 1 EA TAB PO SCH (09:00)
--- NOTE | 2023-12-24 09:25 | NUR ---
THIS RN CALLED DR. MORTON TO CLARIFY IF DR. MORTON WOULD LIKE PT TO RECEIVE BOTH MACROBID ABX ORDERED BY DR. AMOS AND SEPTRA DS ORDERED BY DR. MORTON. PER DR. MORTON "YES, ADMINISTER BOTH." VERIFIED WITH READBACK.
--- NOTE | 2023-12-24 09:50 | NUR ---
IN TO ADMINISTER MEDICATIONS, SEE MAR. PT TAKES PO MEDICAITONS WITH NO ISSUES ONE AT A TIME FOLLOWED BY WATER. PT REPORTING TOILETING NEEDS. 2PA WITH FWW FROM BED TO BSC. VOID NOTED. 2PA WITH FWW FROM BSC TO RECLINER. ASSESSMENT COMPLETE. LUNG SOUNDS CLEAR IN RUL, RLL AND OMER. DIMINISHED IN LLL. BOWEL TONES ACTIVE. PEDAL PULSES PALPABLE AND EQUAL. DRESSING TO LEFT HIP C/D WITH EDGE ON MEDIAL LOWER PORTION NOTED TO PEEL UP. EDEMA NOTED IN BILATERAL ANKLES. BLE ELEVATED IN RECLINER ON PILLOW. PT REPORTING PAIN 04/07. ICE PACK PRIVIDED TO LEFT HIP WITH CLOTH BETWEEN SKIN AND ICE PACK. PT UP IN RECLINER. CHAIR ALARM ON. CALL LIGHT IN REACH. PT IN VIEW OF NURSES STATION. PT DENIES ANY OTHER NEEDS.
--- NOTE | 2023-12-24 11:50 | NUR ---
IN TO ASSIST PHYSICAL THERAPY WITH TRANSFERRING PT FROM BSC TO RECLINER. 2PA WITH FWW FROM BS TO RECLINER. PHYSICAL THERAPY IN ROOM. NO OTHER NEEDS FROM.
--- NOTE | 2023-12-24 13:11 | NUR ---
IN TO ROUND ON PT. PT SITTING UP IN RECLINER. BLE ELEVATED IN RECLINER. PT RESTING, EYES CLOSED AND RR EVEN AND UNLBORED. CALL LIGHT IN REACH. CHAIR ALARM ON. NO NEEDS IDENTIFIED AT THIS TIME.
--- NOTE | 2023-12-24 13:26 | NUR ---
IN TO ROUND ON PT. PT SITTING UP IN RECLINER AND RESPONDS WHEN ADDRESSED. ASSESSMENT COMPLETE. LUNG SOUNDS CLEAR. NO CHANGES TO DRESSING ON PTs LEFT HIP. EDEMA NOTED TO BLE. BLE ELEVATED IN RECLINER. PT DENIES PAIN AT AT THIS TIME. LEFT HIP NOT WARM TO TOUCH, NO REDNESS NOTED AROUND AREA. PT DENIES ANY OTHER NEEDS AT THIS TIME. CALL LIGHT IN REACH. CHAIR ALARM ON. PT IN VIEW OF NURSES STATION.
--- NOTE | 2023-12-24 16:37 | NUR ---
IN TO ROUND ON PT. PT SITTING UP IN RECLINER WITH BLE ELEVATED IN RECLINER. PT RESTING IN RECLINER. EYES CLOSED, RR EVEN AND UNLABORED. CALL LIGHT IN REACH. CHAIR ALARM ON. PT IN VIEW OF NURSES STATION. NO NEEDS IDENTIFIED.
--- NOTE | 2023-12-24 19:20 | NUR ---
shift report received from dayshift katerina joseph at bedside, pt resting in bed with eyes closed. on ra, rr even and unlabored. no distress noted. bed alarm on, call light in reach.
--- NOTE | 2023-12-24 21:04 | NUR ---
ASSESSMENT COMPLETE, SCHEDULED MEDS GIVEN-SEE EMAR. VSS. pt UP 2PA WITH FWW TO [facility] AND BACK TO BED. ALARM RESUMED. SCD'S, JUAN DIEGO HOSE, AND HEEL PROTECTORS IN PLACE. IV SITE WNL, SALINE LOCKED. pt REPORTS PAIN 8/10, PRN PAIN MEDICATION GIVEN-SEE EMAR. CMS INTACT, CAP REFILL WNL. DRESSING TO LEFT HIP WNL, C/D/I. ALLEVYN TO COCCYX ALSO WNL, C/D/I. CALL LIGHT IN REACH.
--- NOTE | 2023-12-24 22:00 | NUR ---
ROUNDED ON pt, pt RESTING IN BED WITH EYES CLOSED. ON RA, RR EVEN AND UNLABORED. NO DISTRESS NOTED, BED ALARM ON AND CALL LIGHT IN REACH.
--- NOTE | 2023-12-24 23:47 | NUR ---
PATIENT STATED SHE NEEDS TO USE THE BATHROOM. 2PA WITH WALKER. BEDSIDE COMMODE USED. PATIENT VOIDED. PATIENT IS NOW BACK IN BED. NO FURTHER NEEDS AT THIS TIME. CALL LIGHT IN REACH.
[2023-12-25] VITALS (7 sets, daily range): BP systolic 131–167; BP diastolic 61–83
--- NOTE | 2023-12-25 01:10 | NUR ---
ROUNDED ON pt, pt RESTING IN BED. ON RA. NO DISTRESS NOTED, BED ALARM ON-RECENTLY UP WITH RETAIL AGENT TO VOID. pt APPEARS RELAXED AND COMFORTABLE. CALL LIGHT IN REACH.
--- NOTE | 2023-12-25 02:52 | NUR ---
PATIENT STATED SHE NEEDS TO USE THE BATHROOM. 2PA WITH WALKER. PATIENT VOIDED. PATIENT IS BACK IN BED. WARM BLANKET PROVIDED. NO FURTHER NEEDS AT THIS TIME. CALL LIGHT IN REACH.
--- NOTE | 2023-12-25 03:33 | NUR ---
ROUNDED ON pt, pt AWAKE AND WATCHING TV, STATES, "I NEED HELP GETTING IT OFF THIS WOLOF CHANNEL, I DON'T SPEAK WOLOF". ASSISTANCE PROVIDED. FOCUSED ASSESSMENT COMPLETE, NO ACUTE CHANGES. LUNGS REMAIN CLEAR, HEART SOUNDS WNL. pt APPEARS COMFORTABLE AND RELAXED, DENIED ADDITIONAL NEEDS WHEN ASKED. BED ALARM ON FOR SAFETY AND CALL LIGHT IN REACH. CMS REMAINS INTACT. BILATERAL SCD'S, JUAN DIEGO HOSE, AND HEEL PROTECTORS REMAIN IN PLACE. NO CHANGES TO LEFT HIP DRESSING.
--- NOTE | 2023-12-25 04:56 | NUR ---
IN ROOM TO ASSIST pt BACK TO BED FROM BS. DISTAL END OF SCARAL DRESSING DIRTY, NEW ONE IN PLACE. MINIMAL REDDNESS NOTED TO LEFT BUTTOCKS, BLANCHABLE. COCCYX OVERALL WNL. NO ADDITIONAL NEEDS VERBALIZED. SIDE DOOR MAN IN ROOM COLLECTING VS AND I&O'S.
--- NOTE | 2023-12-25 05:26 | NUR ---
CALL LIGHT ANSWERED, PRN PAIN MEDICATION GIVEN FOR REPORTED 8/10 PAIN-SEE EMAR. BED ALARM ON AND CALL LIGHT IN REACH.
[2023-12-25 05:34] LABS: BASOPHILS 0.9 % (0-2); HEMATOCRIT 29.7 % (35.0-50.0); HEMOGLOBIN 10.3 g/dL (12.0-18.0); LYMPHOCYTES 18.8 % (24-44); MCH 31.7 (27-36); MCHC 34.8 g/dl (30-36); MONOCYTES 15.2 % (0-12); NEUTROPHILS 62.1 % (39-80); PLATELET COUNT 250 K/uL (140-440); RBC 3.26 M/ul (4.3-5.7); RDW 13.7 (10.5-15.0)
[2023-12-25 05:44] LABS: ANION GAP 9.5 (7-21); BUN/CREATININE RATIO 13.09 (6.0-28.6); CALCIUM 8.1 mg/dL (8.5-10.1); CREATININE, SERUM 0.84 mg/dL (0.55-1.02); POTASSIUM 3.5 mmol/L (3.5-5.1)
--- NOTE | 2023-12-25 07:40 | NUR ---
RECEIVED REPORT FROM HAMZAH RN, PT RESTING WITH EYES CLOSED AT THIS TIME, DID NOT AWAKEN WHEN ENTERED ROOM. TV IS CURRENTLY ON, CALL LIGHT WITHIN REACH, BED ALARM IN PLACE. PT ALLOWED TO REST AT THIS TIME.
--- NOTE | 2023-12-25 08:10 | NUR ---
PATIENT UP TO CHAIR WITH PHYSICAL THERAPY IN ROOM. AM CARE COMPLETED, WARM BLANKETS GIVEN. PT HAS NO OTHER NEEDS AT THIS TIME. CHAIR ALARM ON, CALL LIGHT WITHIN REACH.
--- NOTE | 2023-12-25 09:57 | NUR ---
PATIENT UP TO BSC W/2PA FWW. PATIENT REFUSED SUPPLEMENT SHAKE AND BREAKFAST AT THIS TIME, DUE TO AN UPSET STOMACH. VITALS AND I/O'S COMPLETED. CHAIR ALARM ON, CALL LIGHT WITHIN REACH.
--- NOTE | 2023-12-25 10:34 | NUR ---
PT UP IN CHAIR, CAREGIVER ASSISTED TO BSC. PT STATES SHE FEELS SHE NEEDS TO HAVE A BM BUT UNABLE TO AT THIS TIME. THIS MORNING GIVEN STOOL MEDICATIONS AND MIRALAX. PT DOES STATE SHE HAS ON/OFF CONSTIPATION AT HOME WELL. PRUNE JUICE WITH SWEET N LOW/ 1/2 7-UP MIXED TOGETHER AND GIVEN TO PATIENT, ALONG WITH CUP OF HOT COFFEE. PT ASSISTED BACK TO CHAIR AT THIS TIME, SHE STATES ONCE SHE GOES IM GOING TO BE GIVING HER DIARRHEA. PT UNDERSTANDS WE NEED TO GET BOWELS MOVING AND DUE TO DECREASED MOVEMENT AND ACTIVITY IT MAKES IT HARD TO GET BOWELS TO MOVE. PT SITTING UP IN CHAIR AT THIS TIME, WATCHING TV. CALL LIGHT WITHIN REACH. ALL PT CARE NEEDS MET FOR THE TIME
--- NOTE | 2023-12-25 11:14 | NUR ---
PT IS SITTING UP IN CHAIR SLEEPING, TV IS ON BUT EYES CLOSED AND RESTING. CALL LIGHT WITHIN REACH, PT ALLOWED TO SLEEP AT THIS TIME.
--- NOTE | 2023-12-25 14:06 | NUR ---
PT WAS UP IN CHAIR HAVING LUNCH, REQUESTED THE BSC, WAS ABLE TO GET UP TO BSC WITH 1-2 ASSIST SHE IS REALLY DOING WELL WITH QUES AND HAVING HER REALLY DO THINGS TO HER COMPACITY. PT ABLE TO SCOOT HER BUTTOCKS TO EDGE OF CHAIR AND ON COUNT OF 3 STANDS UP WITH 1 ASSIST, USES FWW TO SIDE STEP TO COMMODE. PT DID HAVE A LARGE BM, IT WAS FIRM SO REALLY NEED TO PUSH STOOL SOFTENERS UNTIL HER STOOL IS LESS FIRM. PT BACK TO CHAIR AND FINISHING LUNCH, CHAIR ALARM IN PLACE, CALL LIGHT WITHIN REACH. REPORT GIVEN TO RN TAKING OVER AT 1400. ALL PT CARE NEEDS MET AT THIS TIME.
--- NOTE | 2023-12-25 14:31 | NUR ---
PT ASSISTED BACK TO BED, C/O PAIN TO HIP 04/07. PAIN MED GIVEN, CALL LIGHT WITHIN REACH AND BED ALARM ON.
--- NOTE | 2023-12-25 14:40 | NUR ---
dr león in to see pt and discuss plan of care
--- NOTE | 2023-12-25 15:22 | NUR ---
PATIENT UP TO BSC, 2PAFWW. CAREGIVER IN ROOM. PT HAS NO OTHER NEEDS AT THIS TIME. BED ALARM ON, CALL LIGHT WITHIN REACH.
--- NOTE | 2023-12-25 15:43 | NUR ---
PT RESTING IN BED VISITING WITH COMPANY, NO REQUESTS AT THIS TIME.
--- NOTE | 2023-12-25 17:06 | NUR ---
pt sitting up in bed watching tv, call light within reach. states pain is "ok" at this time. will continue to monitor.
--- NOTE | 2023-12-25 17:23 | NUR ---
pt asleep in bed with respirations even and unlabored. call light within reach.
--- NOTE | 2023-12-25 17:41 | NUR ---
pt sitting up in bed eating dinner. call light within reach.
--- NOTE | 2023-12-25 19:35 | NUR ---
Report received earlier from Sonia ARANA. pt awake, watching tv. no requets, comfortable
--- NOTE | 2023-12-25 19:51 | NUR ---
PATIENT IS SLEEPING. PATIENT DOES HAVE CALL LIGHT.
--- NOTE | 2023-12-25 19:56 | NUR ---
PATIENT IS ASLEEP AND HAS CALL LIGHT
--- NOTE | 2023-12-25 20:50 | NUR ---
PLEASANT, CONFUSED, REQUIRES CUING. TOOK MEDS WITH PUDING. UP TO BSC, LIQUID BM, INC OF URINE PLUS VOIDED IN BSC. 1-2PA/FWW. SKIN CARE DONE ALLEVYN TO COCCYX INTACT, FRESH ATTENDS IN PLACE. L HIP OPTICOT DRESSING COVERED WITH OPSITE IN PLACE, EDEMA TO HIP, RESOLVING. C/O L HIP WHEN GETTING UP, MEDICATED . TOLERATING LIQUIDS WELL. M.O.M AND SENNA TABS HELD DUE TO DIARRHEA. BACK TO BED, REPOSITIONED. JUAN DIEGO HOSE IN PLACE, HEEL PROTECTORS AND SCDS IN PLACE. SL LFA INTACT/PATENT COVERED WITH COBAN
--- NOTE | 2023-12-25 21:18 | NUR ---
PATIENT CALLED TO USE THE RESTROOM, PATIENT IS BACK IN BED NOW LAYING DOWN. PATIENT HAS PUDDING AND WATER. PATIENT ALSO HAS CALL LIGHT.
--- NOTE | 2023-12-25 22:47 | NUR ---
RESTING, EYES CLOSED, NO S/SX DISTRESS. SCDS IN PLACE, BED ALRM ON
--- NOTE | 2023-12-25 23:19 | NUR ---
AWAKE, USED CALL LIGHT, NO C/O PAIN, UP TO BSC, 1PA/FWW. VOIDED, BACK TO BED 2PA/FWW AND MANY CUES. TOLERATED WELL, NO C/O APIN OR SOB WITH EXERTION. SCDS, JUAN DIEGO HOSE IN PLACE
[2023-12-26] VITALS (8 sets, daily range): BP systolic 126–197; BP diastolic 53–126
--- NOTE | 2023-12-26 01:08 | NUR ---
Resting, esys closed, no s/x distress, on room air, SCD's on
--- NOTE | 2023-12-26 03:00 | NUR ---
Resting, no s/sx distress, eyes closed. SCD's on
--- NOTE | 2023-12-26 03:25 | NUR ---
PATIENT WAKES UP TO LOUD NOISES. PATIENT IS BACK ASLEEP. PATIENT HAS CALL LIGHT
--- NOTE | 2023-12-26 04:30 | NUR ---
Used call light, up to BSC 1-2PA/FWW, voided, back to bed, dressing L hip intact, edema decreased. Requires many cues, forgetful, reorientes easily. On room air. has had loose stools. Allevyn to buttocks in place, barrier cream to yazan area. no c/o pain at this time, tolerated well. Was medicated with [place] at begining of shift per hip pain was effective. Pleasant and cooperative
--- NOTE | 2023-12-26 06:42 | NUR ---
PT USED CALL LIGHT, UP TO BSC/ 1PA-FWW, VOIDED, BACK TO BED 2PA/FWW, TOLERATED FAIR, SCDS , JUAN DIEGO HOSE IN PLACE, DECLINED HEEL PROTECTORS AT THIST KUMAR, HELPED WITH TURNING AND REPOSITIONING L HIP DRESSING IN PLACE
--- NOTE | 2023-12-26 06:49 | NUR ---
PT IS DOING GOOD, TURNED ON HER SIDE WHILE LAYING DOWN. PATIENT CALLED FOR A PAIN PILL. PT HAS CALL LIGHT AND IS USING IT FREQUENTLY.
--- NOTE | 2023-12-26 06:54 | NUR ---
c/o 8/10 l hip pain, medicated. up to bsc 1pa/fww
--- NOTE | 2023-12-26 07:30 | NUR ---
VERBAL REPORT RECEIVED FROM SUMIT CAZARES. PT AWAKE AND ALERT, WATCHES TV. NO REQUESTS AT THIS TIME.
--- NOTE | 2023-12-26 08:05 | NUR ---
UPDATED PT NOTES AND PROGRESS NOTES FAXED TO [facility].
[2023-12-26] MEDS ORDERED: lisinopriL 5 MG TAB PO SCH (09:00)
--- NOTE | 2023-12-26 09:49 | NUR ---
SPOKE WITH DOTTIE AT [facility], REQUESTING NURSING NOTES. NOTES FAXED TO [facility].
--- NOTE | 2023-12-26 10:00 | NUR ---
NOTED DRESSING TO LEFT HIP IS C/DI. NEW ICE PACK APPLIED TO SITE. NOTED FOAM DRESSING OVER SACRUM, REMOVED, NO WOUNDS NOTED. SMALL AREA OF BLANCHABLE REDNESS ON RIGHT BUTTOCK. FOAM REMOVED AND NOT REPLACED. [facility]
--- NOTE | 2023-12-26 11:52 | NUR ---
PT UP WITH PT TODAY, UP TO RECLINER, NOW BACK TO BED. AWAKE AND ALERT, CALL LIGHT IN REACH, NO REQUESTS AT THIS TIME.
[2023-12-26] MEDS ORDERED: HYDROCODON-ACE1 EA11 PO (12:52)
--- NOTE | 2023-12-26 13:49 | NUR ---
VISITED DURING SPIRITUAL CARE ROUNDS. PT EXPRESSED WORRY, DESIRE FOR COMPANIONSHIP. I LISTENED EMPATHETICALLY, ADVOCATED FOR PT, PROVIDED SUPPORTIVE PRESENCE, PROVIDED PRAYER. PT EXPRESSED GRATITUDE.
--- NOTE | 2023-12-26 14:17 | NUR ---
PT ASSISTED TO BSC WITH FWW, GAIT BELT, 1 PERSON ASSIST AND PIVOT. PT VOIDS 100 MLS OF CLEAR YELLOW URINE. PT TOLERATES ACTIVITY WELL. PT BACK TO BED, SCDS ON TO BLE. BEB ALARM ON, CALL LIGHT IN REACH. PT EATS A MEAL AND WATCHES TV.
--- NOTE | 2023-12-26 14:38 | NUR ---
RECVD CALL FROM MIS AT [facility], PATIENT HAS BEEN ACCEPTED FOR ADMISSION TOMORROW. VAN SET UP FOR 0945 TO TRANSPORT PATIENT.
--- NOTE | 2023-12-26 17:08 | NUR ---
PT RESTS IN BED WITH EYES CLOSED, RESP EVEN AND UNEVEN.
--- NOTE | 2023-12-26 22:25 | NUR ---
PT WATCHING TV, C/O LHIP PAIN, MEDICATED WITH NORCO 1 TAB, PT PULLED IV OUT. "tHERE WAS A NEEDLE THERE SO I PULLED OUT. NO BLEEDING NOTED AT SITE. COOPERATIVE WITH ASSESSMENT AND VITALS. CONFUSED, FORGETFUL, REORIENTS EASILY, CHEESH-NA. DRESSING L HIP IN PLACE, EDEMA RESOLVING, [place], SCDS, HEEL PROTECTORS DECLINED ICE TO AREA. REPOSITIONED UP IN BED, UNABLE TO HELP, EVEN AFTER MANY CUES, PUDING GIVEN W MEDS. TOLERATING LIQUIDS WELL.
--- NOTE | 2023-12-26 22:30 | NUR ---
PT AWAKE, UP TO BSC, VOIDED SMALL AMOUNT 1PA, REQUIREMIN MORE CUING THAN YESTERDAY, 2PA TO RGET BACK IN TO BED. DRESSING L HIP INTACT
--- NOTE | 2023-12-27 03:07 | NUR ---
PATIENT CALLED TO USE THE TOILET. PATIENT WENT I WAS GETTING HER UP. PATIENT ASKED FOR PAIN PILL. PATIENT HAS FRESH ICE WATER. PATIENT IS NOW SEEING BUGS. PATIENT HAS CALL LIGHT AND CALLS FREQUENTLY.
--- NOTE | 2023-12-27 03:22 | NUR ---
@ 0307 ADMINISTERED PAIN MEDICATIONS FOR 06/07 STATED PAIN IN LEFT HIP, PT HAD JUST RETURNED TO BED WITH SURVEILLANCE MONITOR, HAD TO TURN COUPLE TIMES. PT STATED TO THIS NURSE THAT HER "TOES" WERE TOO TIGHT; TOOK OFF THE COVERS, LAYING A SHEET OVER HER TOES, SHE STATES THAT THAT WAS BETTER. CONVERSATION WITH PT SHE WAS ORIENTATED PLANNING TO GO BACK TO SLEEP. CALL LIGHT WITHIN REACH.
[2023-12-27 03:57] VITALS: BP 158/55
[2023-12-27 03:59] VITALS: BP 158/55
--- NOTE | 2023-12-27 04:08 | NUR ---
up to bsc, voided small amounts plus was incontinent of urine. back to bed, tolerated fair, was medicated earlier with norco, effective. SCDs, tedhose in place, heel protectors removed at this time her requests. tolerating liquids wll, confused, redirectable, L hip dressing in place, edges rolled up, edema improving
[2023-12-27 05:41] VITALS: BP 133/53
--- NOTE | 2023-12-27 07:28 | NUR ---
REPORT FROM NIGHT RN
--- NOTE | 2023-12-27 07:50 | NUR ---
MORNING ASSESSMENT IS COMPLETE. PATIENT IS CONFUSED AT BASELINE. PAIN IN LEFT HIP, PER FACES SCALE. PATIENT IS AWAITING BREAKFAST. PLAN TO DISCHARGE PATIENT TO [facility] VIA WHEELCHAIR VAN AT 0945 THIS MORNING. NO OTHER NEEDS NOTED AT THIS TIME.
--- NOTE | 2023-12-27 09:33 | NUR ---
PATIENT GIVEN MORNING MEDICATIONS, IS PACKED UP AND READY FOR TRANSPORT AT 0945.
--- NOTE | 2023-12-27 10:00 | NUR ---
PATIENT TO [facility] AT 0945 [facility]IA [facility]EL[facility]IR VAN.
--- NOTE | 2023-12-27 10:10 | NUR ---
REPORT CALLED TO [facility].
[2023-12-27 11:09] VITALS: BP 148/60
== END 2023-12-27 09:42 | disposition home or self-care (01) | DRG 522 ==
LOC: ED 15:11 → MS 16:58
PROVIDERS: Emergency Medicine; Family Medicine; ADMIT Specialist; ATTEND Specialist
PROC: 0SRS0JZ Replacement of Left Hip Joint, Femoral Surface with Synthetic Substitute, Open Approach (ICD-10-PCS; principal; 2023-12-21 08:15)
DX: S72.002A Fracture of unspecified part of neck of left femur, initial encounter for closed fracture (principal); E87.1 Hypo-osmolality and hyponatremia; N39.0 Urinary tract infection, site not specified; E44.0 Moderate protein-calorie malnutrition; M19.90 Unspecified osteoarthritis, unspecified site; I25.10 Atherosclerotic heart disease of native coronary artery without angina pectoris; E78.00 Pure hypercholesterolemia, unspecified; F03.A0 Unspecified dementia, mild, without behavioral disturbance, psychotic disturbance, mood disturbance, and anxiety; G40.909 Epilepsy, unspecified, not intractable, without status epilepticus; W18.30XA Fall on same level, unspecified, initial encounter; Z90.89 Acquired absence of other organs; Z86.73 Personal history of transient ischemic attack (TIA), and cerebral infarction without residual deficits; I25.2 Old myocardial infarction; Z98.890 Other specified postprocedural states; Z88.8 Allergy status to other drugs, medicaments and biological substances; Z79.899 Other long term (current) drug therapy; Z90.710 Acquired absence of both cervix and uterus; Z87.440 Personal history of urinary (tract) infections; Z60.2 Problems related to living alone; Z68.23 Body mass index [BMI] 23.0-23.9, adult
CPT/HCPCS: 01230; 36415; 51702; 72170; 73502; 80048; 80053; 81001; 85025; 85610; 85730; 87040; 87088; 87186; 93005; 93010; 94760; 94762; 97112; 97162; 97166; 97530; 97535; 99285-25; A9270; C1776; J0131; J0360; J0690; J0696; J1170; J2001; J2371; J2405; J2704; J3490; J7030; J7121

== ENCOUNTER 2024-04-16 12:32 | Inpatient (IN) | payer MEDICARE, OTHER ==
[~2024-04-16] VITALS: Ht 162.6 cm; Wt 58.3 kg
[~2024-04-16 12:32] MED LIST changes: +HYDROCODON-ACE1 EA11 PO
--- OUTSIDE RECORDS SUMMARY | 2024-04-16 12:33 | XMS ---
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 E.D. VISIT COUNT (12 MO.) 5 ANGELO Eugene TOTAL 5 NOTE: Visits indicate total known visits. 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 - Repeated falls - Unspecified fall, initial encounter 05/07/2023 16:26 [facility] [place] TYPE: Emergency COMPLAINT: - FALL/WEAKNESS DIAGNOSES: - Contact with and (suspected) exposure to COVID-19 - Elevated white blood cell count, unspecified - Encounter for examination and observation for other specified reasons - History of falling - Old myocardial infarction - Other shelter (current) drug therapy - Other specified abnormalities of plasma proteins - Personal history of transient ischemic attack (TIA), and cerebral infarction without residual deficits - Problems related to living alone - Repeated falls 04/26/2023 17:49 [facility] TYPE: Emergency COMPLAINT: - WEAKNESS DIAGNOSES: - Dizziness and giddiness - Old myocardial infarction - Other shelter (current) drug therapy - Personal history of transient ischemic attack (TIA), and cerebral infarction without residual deficits - Syncope and collapse INPATIENT VISIT TRACKING (12 MO.) 12/20/2023 16:58 [facility] [place] TYPE: Medical Surgical COMPLAINT: - L HIP FX DIAGNOSES: - Acquired absence of both cervix and uterus - Acquired absence of both cervix and uterus - Acquired absence of other organs - Acquired absence of other organs - Allergy status to other drugs, medicaments and biological substances - Allergy status to other drugs, medicaments and biological substances - Atherosclerotic heart disease of [place] coronary artery without angina pectoris - Atherosclerotic heart disease of [place] coronary artery without angina pectoris - Body mass index [BMI] 23.0-23.9, adult - Body mass index [BMI] 23.0-23.9, adult - Epilepsy, unspecified, not intractable, without status epilepticus - Epilepsy, unspecified, not intractable, without status epilepticus - Fall on same level, unspecified, initial encounter - Fall on same level, unspecified, initial encounter - Fracture of unspecified part of neck of left femur, initial encounter for closed fracture - Hypo-osmolality and hyponatremia - Hypo-osmolality and hyponatremia - Moderate protein-calorie malnutrition - Moderate protein-calorie malnutrition - Old myocardial infarction - Old myocardial infarction - Other parts counterman (current) drug therapy - Other shelter (current) drug therapy - Other specified postprocedural states - Other specified postprocedural states - Personal history of transient ischemic attack (TIA), and cerebral infarction without residual deficits - Personal history of transient ischemic attack (TIA), and cerebral infarction without residual deficits - Personal history of urinary (tract) infections - Personal history of urinary (tract) infections - Problems related to living alone - Problems related to living alone - Pure hypercholesterolemia, unspecified - Pure hypercholesterolemia, unspecified - Unspecified dementia, mild, without behavioral disturbance, psychotic disturbance, mood disturbance, and anxiety - Unspecified dementia, mild, without behavioral disturbance, psychotic disturbance, mood disturbance, and anxiety - Unspecified osteoarthritis, unspecified site - Unspecified osteoarthritis, unspecified site - Urinary tract infection, site not specified - Urinary tract infection, site not specified [email or web address]
[2024-04-16 13:31] LABS: BILIRUBIN, URINE NEGATIVE (negative); BLOOD/HGB, URINE MODERATE (Negative); KETONE, URINE NEGATIVE (Negative); LEUK ESTERASE, URINE TRACE (negative); NITRITE, URINE NEGATIVE (negative)
[2024-04-16 13:38] LABS: BACTERIA, URINE 3+ /hpf (negative); CASTS, URINE NONE SEEN \\lpf; CRYSTALS, URINE NONE SEEN (0-1+); EPITHELIAL CELLS, URINE 0 /lpf (0-1+); RED BLOOD CELLS, URINE 0-1 /hpf (0-5); WHITE BLOOD CELLS, URINE >50 /HPF (0-5)
[2024-04-16 13:39] LABS: COLLECTION TYPE, URINE CLEAN CATCH; REFLEX CULTURE, URINE Yes (No)
[2024-04-16 13:52] LABS: AMPHETAMINES, URINE NEGATIVE (NEGATIVE); BARBITURATES, URINE NEGATIVE (NEGATIVE); BENZODIAZEPINE, URINE NEGATIVE (NEGATIVE); BUPRENORPHINE, URINE NEGATIVE (NEGATIVE); CANNABINOID, URINE NEGATIVE (NEGATIVE); COCAINE, URINE NEGATIVE (NEGATIVE); ECSTASY, URINE NEGATIVE (NEGATIVE); FENTANYL, URINE NEGATIVE (NEGATIVE); METHADONE, URINE NEGATIVE (NEGATIVE); OPIATES, URINE NEGATIVE (NEGATIVE); OXYCODONE, URINE NEGATIVE (NEGATIVE); PHENCYCLIDINE, URINE NEGATIVE (NEGATIVE)
[2024-04-16 13:54] LABS: HEMATOCRIT 41.6 % (35.0-50.0); HEMOGLOBIN 14.2 g/dL (12.0-18.0); MCH 31.5 (27-36); MCHC 34.1 g/dl (30-36); MCV 92.4 fl (81-99); PLATELET COUNT 307 K/uL (140-440); RDW 14.1 (10.5-15.0)
[2024-04-16 14:06] LABS: INR 0.97 (0.80-1.30); PROTIME 12.5 Sec (11.2-14.2)
[2024-04-16 14:12] LABS: BASOPHILS, MANUAL DIFF 1; LYMPHOCYTES, MANUAL DIFF 12; MONOCYTES, MANUAL DIFF 4; NEUTROPHILS, MANUAL DIFF 83
[2024-04-16 14:21] LABS: ALBUMIN 3.3 g/dL (3.4-5.0); ALCOHOL, MEDICAL <3 ng/dL (<3); ALKALINE PHOSPHATASE 109 U/L (46-116); ALT (SGPT) 34 U/L (14-59); ANION GAP 12.7 (7-21); AST (SGOT) 132 U/L (15-37); BILIRUBIN, TOTAL 1.1 ng/dL (0.2-1.0); BUN/CREATININE RATIO 26.31 (6.0-28.6); CALCIUM 9.8 mg/dL (8.5-10.1); CARBON DIOXIDE 30 mmol/L (21-32); CHLORIDE 96 mmol/L (98-107); CREATININE, SERUM 0.95 mg/dL (0.55-1.02); GLOMERULAR FILTRATION RATE,EST 59 mL/min (>60); POTASSIUM 3.7 mmol/L (3.5-5.1); PROTEIN, TOTAL 7.4 g/dL (6.4-8.2); UREA NITROGEN 25 mg/dL (7-18)
[2024-04-16 14:22] LABS: CREATINE KINASE 5084 U/L (26-192)
[2024-04-16] MEDS ORDERED: SODIUM CHLORIDE 0.9% 1,000 ML IV ONE (14:45)
[2024-04-16] MEDS ORDERED: MAGNESIUM HYDROXIDE 30 ML UDC PO PRN (16:45)
[2024-04-16] MEDS ORDERED: SODIUM CHLORIDE 0.9% 1,000 ML IV SCH (16:45)
[2024-04-16] MEDS ORDERED: ACETAMINOPHEN 500 MG TAB PO PRN (16:45)
[2024-04-16] MEDS ORDERED: levETIRAcetam 500 MG/5 ML VIAL IV SCH (17:00)
[2024-04-16] MEDS ORDERED: NITROFURANTOIN MONOHYD MACROCR 100 MG CAP PO SCH (17:00)
[2024-04-16 18:09] VITALS: BP 171/78
[2024-04-16 20:11] VITALS: BP 176/74
[2024-04-16] MEDS ORDERED: MELATONIN 3 MG TAB PO PRN (21:00)
[2024-04-17] VITALS (8 sets, daily range): BP systolic 112–152; BP diastolic 49–58
[2024-04-17] MEDS ORDERED: LIDOCAINE 2% VISCOUS 6 ML SYR TOP ONE ×2 (05:15→19:00)
[2024-04-17 05:53] LABS: BASOPHILS 0.4 % (0-2); HEMOGLOBIN 11.9 g/dL (12.0-18.0); MCH 31.1 (27-36); MCHC 33.1 g/dl (30-36)
[2024-04-17 05:55] LABS: HEMATOCRIT 35.9 % (35.0-50.0); LYMPHOCYTES 5.9 % (24-44); MCV 93.8 fl (81-99); NEUTROPHILS 85.7 % (39-80); PLATELET COUNT 220 K/uL (140-440); RBC 3.82 M/ul (4.3-5.7); RDW 14.2 (10.5-15.0)
[2024-04-17 06:12] LABS: ALBUMIN 2.3 g/dL (3.4-5.0); ALBUMIN/GLOBULIN RATIO 0.92 (1.1-2.4); ANION GAP 13.3 (7-21); BILIRUBIN, TOTAL 0.7 ng/dL (0.2-1.0); BUN/CREATININE RATIO 30.37 (6.0-28.6); CREATININE, SERUM 0.79 mg/dL (0.55-1.02); POTASSIUM 3.3 mmol/L (3.5-5.1); PROTEIN, TOTAL 4.8 g/dL (6.4-8.2)
[2024-04-17] MEDS ORDERED: POTASSIUM CHLORIDE 10 MEQ TABCR PO ONE (07:30)
[2024-04-17] MEDS ORDERED: POTASSIUM REPLACEMENT PROTOCOL ORAL/IV PO SCH (09:00)
[2024-04-17] MEDS ORDERED: POTASSIUM CHLORIDE 10 MEQ TABCR ONE (09:49)
[2024-04-17] MEDS ORDERED: MAGNESIUM REPLACEMENT PROTOCOL ORAL/IV IV SCH (10:15)
[2024-04-17] MEDS ORDERED: MAGNESIUM SULFATE 2 GM/50 ML BAG IV ONE (10:30)
[2024-04-17] MEDS ORDERED: LISINOPRIL5 MG PO (11:31)
[2024-04-17] MEDS ORDERED: NALOXONE HCL4 MG NAS (11:32)
[2024-04-17] MEDS ORDERED: ONDANSETRON HCL4 MG PO (11:33)
[2024-04-17] MEDS ORDERED: PHARMACY RENAL DOSE ADJUSTMENT 1 DOSE MISC PO SCH (12:00)
--- NOTE | 2024-04-17 12:56 | EKG ---
[facility] [address] [place] [address] Signed Normal sinus rhythm Left axis deviation Inferior-posterior infarct , age undetermined Abnormal ECG When compared with ECG of 20-DEC-2023 16:15, Right bundle branch block is no longer present Inferior-posterior infarct is now present Confirmed by Jaki Welch ([id number]) on 04/17/2024 12:55:59 PM Electronically Signed By: JAKI WELCH MD 04/17/24 1256 PATIENT NAME: CORIN WILKINSON JOSE CRUZ Electrocardiogram DATE OF : 38 PHYSICIAN: JAKI WELCH MD REPORT #: [id number] REPORT IS CONFIDENTIAL AND NOT TO BE RELEASED WITHOUT AUTHORIZATION
[2024-04-17] MEDS ORDERED: IBUPROFEN 400 MG TAB PO PRN (16:45)
[2024-04-17] MEDS ORDERED: ACETAMINOPHEN 325 MG TAB PO PRN (20:00)
[2024-04-18] VITALS (10 sets, daily range): BP systolic 126–169; BP diastolic 50–68
[2024-04-18 05:53] LABS: BASOPHILS 0.5 % (0-2); HEMATOCRIT 31.5 % (35.0-50.0); HEMOGLOBIN 10.6 g/dL (12.0-18.0); LYMPHOCYTES 15.6 % (24-44); MCH 31.8 (27-36); MCHC 33.7 g/dl (30-36); MCV 94.2 fl (81-99); MONOCYTES 8.3 % (0-12); NEUTROPHILS 73.6 % (39-80); PLATELET COUNT 224 K/uL (140-440); RBC 3.35 M/ul (4.3-5.7); RDW 14.3 (10.5-15.0)
[2024-04-18 06:08] LABS: ALBUMIN 1.9 g/dL (3.4-5.0); ALBUMIN/GLOBULIN RATIO 0.61 (1.1-2.4); ANION GAP 10.3 (7-21); BILIRUBIN, TOTAL 0.3 ng/dL (0.2-1.0); BUN/CREATININE RATIO 22.66 (6.0-28.6); CREATININE, SERUM 0.75 mg/dL (0.55-1.02); POTASSIUM 3.3 mmol/L (3.5-5.1)
[2024-04-18 06:14] LABS: CALCIUM 7.8 mg/dL (8.5-10.1)
[2024-04-18] MEDS ORDERED: LIDOCAINE 2% VISCOUS 6 ML SYR ONE (06:21)
[2024-04-18] MEDS ORDERED: LIDOCAINE 2% VISCOUS 6 ML SYR TOP ONE (06:30)
[2024-04-18] MEDS ORDERED: POTASSIUM CHLORIDE 10 MEQ TABCR PO ONE ×2 (07:00→09:30)
[2024-04-18] MEDS ORDERED: POLYETHYLENE GLYCOL 3350 1 PACKET PO SCH (09:00)
[2024-04-18] MEDS ORDERED: SENNOSIDES/DOCUSATE 1 EA TAB PO SCH (09:00)
[2024-04-18] MEDS ORDERED: TAMSULOSIN HCL 0.4 MG CAP PO SCH (09:17)
[2024-04-18] MEDS ORDERED: ZESTRIL5 MG PO (11:04)
[2024-04-18] MEDS ORDERED: VANCOMYCIN PER PHARMACY PROTOCOL IV SCH (14:20)
[2024-04-18] MEDS ORDERED: DAPTOmycin 500 MG/10 ML VIAL IV SCH (15:00)
[2024-04-18] MEDS ORDERED: levETIRAcetam 500 MG TAB PO SCH (21:00)
[2024-04-18 23:06] LABS: KEPPRA (LEVETIRACETAM) <2 ug/mL (10-40)
[2024-04-19] VITALS (11 sets, daily range): BP systolic 142–177; BP diastolic 63–79
[2024-04-19 05:35] LABS: BASOPHILS 0.8 % (0-2); EOSINOPHILS 2.9 % (0-6); HEMATOCRIT 27.8 % (35.0-50.0); HEMOGLOBIN 9.5 g/dL (12.0-18.0); LYMPHOCYTES 22.1 % (24-44); MCH 31.7 (27-36); MCHC 34.2 g/dl (30-36); MCV 92.7 fl (81-99); NEUTROPHILS 63.2 % (39-80); PLATELET COUNT 243 K/uL (140-440); RDW 14.5 (10.5-15.0)
[2024-04-19 05:53] LABS: ALBUMIN 1.8 g/dL (3.4-5.0); ALBUMIN/GLOBULIN RATIO 0.62 (1.1-2.4); ANION GAP 8.1 (7-21); BILIRUBIN, TOTAL 0.3 ng/dL (0.2-1.0); BUN/CREATININE RATIO 23.52 (6.0-28.6); CALCIUM 7.9 mg/dL (8.5-10.1); CREATININE, SERUM 0.68 mg/dL (0.55-1.02); POTASSIUM 4.1 mmol/L (3.5-5.1); PROTEIN, TOTAL 4.7 g/dL (6.4-8.2)
[2024-04-20] VITALS (13 sets, daily range): BP systolic 139–180; BP diastolic 57–84
[2024-04-20 05:29] LABS: BASOPHILS 0.8 % (0-2); EOSINOPHILS 4.6 % (0-6); HEMATOCRIT 29.1 % (35.0-50.0); HEMOGLOBIN 10.1 g/dL (12.0-18.0); LYMPHOCYTES 25.1 % (24-44); MCH 31.8 (27-36); MCHC 34.6 g/dl (30-36); MCV 91.9 fl (81-99); MONOCYTES 10.4 % (0-12); NEUTROPHILS 59.1 % (39-80); PLATELET COUNT 268 K/uL (140-440); RBC 3.17 M/ul (4.3-5.7); RDW 14.1 (10.5-15.0)
[2024-04-20 05:43] LABS: ALBUMIN 1.9 g/dL (3.4-5.0); ALBUMIN/GLOBULIN RATIO 0.61 (1.1-2.4); BILIRUBIN, TOTAL 0.3 ng/dL (0.2-1.0); BUN/CREATININE RATIO 21.05 (6.0-28.6); CALCIUM 8.2 mg/dL (8.5-10.1); CREATININE, SERUM 0.76 mg/dL (0.55-1.02); MAGNESIUM 1.8 mg/dL (1.8-2.4)
[2024-04-21] VITALS (9 sets, daily range): BP systolic 124–169; BP diastolic 58–79
[2024-04-21 05:27] LABS: BASOPHILS 0.9 % (0-2); EOSINOPHILS 3.2 % (0-6); HEMATOCRIT 30.2 % (35.0-50.0); HEMOGLOBIN 10.3 g/dL (12.0-18.0); LYMPHOCYTES 27.2 % (24-44); MCH 31.5 (27-36); MCHC 34.1 g/dl (30-36); MCV 92.6 fl (81-99); MONOCYTES 10.7 % (0-12); PLATELET COUNT 280 K/uL (140-440); RBC 3.26 M/ul (4.3-5.7); RDW 13.9 (10.5-15.0)
[2024-04-21 05:44] LABS: ALBUMIN 2.1 g/dL (3.4-5.0); ALBUMIN/GLOBULIN RATIO 0.68 (1.1-2.4); ANION GAP 12.2 (7-21); BILIRUBIN, TOTAL 0.3 ng/dL (0.2-1.0); BUN/CREATININE RATIO 22.5 (6.0-28.6); CALCIUM 8.2 mg/dL (8.5-10.1); CREATININE, SERUM 0.8 mg/dL (0.55-1.02); POTASSIUM 4.2 mmol/L (3.5-5.1); PROTEIN, TOTAL 5.2 g/dL (6.4-8.2)
[2024-04-21] MEDS ORDERED: MAGNESIUM SULFATE 2 GM/50 ML BAG IV ONE ×2 (09:00→09:15)
[2024-04-22] VITALS (7 sets, daily range): BP systolic 113–138; BP diastolic 53–66
[2024-04-23] VITALS (8 sets, daily range): BP systolic 126–149; BP diastolic 51–62
[2024-04-23] MEDS ORDERED: ENOXAPARIN SODIUM 40 MG/0.4 ML SYR SUB-Q SCH (11:47)
[2024-04-24 06:32] VITALS: BP 137/62
[2024-04-24 10:03] VITALS: BP 139/76
[2024-04-24 13:26] VITALS: BP 105/54
[2024-04-24 18:00] VITALS: BP 131/76
[2024-04-24 20:04] VITALS: BP 147/67
[2024-04-25 05:52] VITALS: BP 140/70
[2024-04-25 09:12] VITALS: BP 109/66
[2024-04-25] MEDS ORDERED: TAMSULOSIN HCL0.4 MG PO (10:39)
== END 2024-04-25 12:50 | disposition home or self-care (01) | DRG 557 ==
LOC: ED 12:32 → MS 16:37
PROVIDERS: Emergency Medicine; ADMIT Family Medicine; ATTEND Family Medicine
DX: M62.82 Rhabdomyolysis (principal); E43 Unspecified severe protein-calorie malnutrition; N39.0 Urinary tract infection, site not specified; R64 Cachexia; I25.10 Atherosclerotic heart disease of native coronary artery without angina pectoris; Z66 Do not resuscitate; R33.9 Retention of urine, unspecified; G40.909 Epilepsy, unspecified, not intractable, without status epilepticus; E86.0 Dehydration; I10 Essential (primary) hypertension; E87.6 Hypokalemia; F03.90 Unspecified dementia, unspecified severity, without behavioral disturbance, psychotic disturbance, mood disturbance, and anxiety; R62.7 Adult failure to thrive; E78.5 Hyperlipidemia, unspecified; M19.90 Unspecified osteoarthritis, unspecified site; W19.XXXA Unspecified fall, initial encounter; Z86.73 Personal history of transient ischemic attack (TIA), and cerebral infarction without residual deficits; I25.2 Old myocardial infarction; Z90.89 Acquired absence of other organs; Z98.890 Other specified postprocedural states; Z90.710 Acquired absence of both cervix and uterus; Z88.8 Allergy status to other drugs, medicaments and biological substances; Z79.891 Long term (current) use of opiate analgesic; Z79.899 Other long term (current) drug therapy; Z68.22 Body mass index [BMI] 22.0-22.9, adult
CPT/HCPCS: 36415; 51701; 51798; 70450; 71045; 73502; 73560; 73590; 73630; 73701; 80053; 80177; 80307; 81001; 82553; 82607; 82728; 82746; 83550; 83735; 84484; 85025; 85610; 87040; 87077; 87088; 87186; 93005; 93010; 93971; 97110; 97116; 97163; 97166; 97530; 97535; 99285-25; A9270; G0480; J0878; J1650; J1953; J3475; J7030; Q9967

== ENCOUNTER 2025-02-12 13:00 | Inpatient (IN) | payer MEDICARE, OTHER ==
[~2025-02-12] VITALS: Ht 162.6 cm; Wt 49.7 kg
[~2025-02-12 13:00] MED LIST changes: +LISINOPRIL5 MG PO; +NALOXONE HCL4 MG NAS; +ONDANSETRON HCL4 MG PO; +TAMSULOSIN HCL0.4 MG PO; +ZESTRIL5 MG PO
--- OUTSIDE RECORDS SUMMARY | 2025-02-12 13:06 | XMS ---
PreManage Notification: CORIN WILKINSON Security Side Boss Events No recent Security Events currently on file CRITERIA MET - Group Notification CARE PROVIDERS JESSICA YE Nurse Practitioner: Family Current PHONE: [phone] [facility]: [facility] PHONE: [phone] TIFFANY QUINONEZ Physician Automatic Punch Press Operator Florentin DELONG PHONE: [phone] DEONDRE LINARES Nurse Practitioner: Adult Health [facility] PHONE: [phone] [address] Tech/Trust Vault Custodian Current PHONE: [phone] [facility] [place] Current PHONE: Unknown Chelo has no Care Guidelines for this patient. E.Octavio VISIT COUNT (12 MO.) 2 ANGELO Eugene TOTAL 2 NOTE: Visits indicate total known visits. ED/UCC VISIT TRACKING (12 MO.) 02/12/2025 13:00 ANGELO [facility] [place] TYPE: Emergency COMPLAINT: - URINE PROBLEM 04/16/2024 12:33 [facility] [place] TYPE: Emergency COMPLAINT: - ALTERED MENTAL STATUS INPATIENT VISIT TRACKING (12 MO.) 04/16/2024 16:37 ANGELO [facility] [place] TYPE: Medical Surgical COMPLAINT: - FAILURE TO THRIVE, RHABDO,UTI DIAGNOSES: - Acquired absence of both cervix and uterus - Acquired absence of other organs - Adult failure to thrive - Allergy status to other drugs, medicaments and biological substances - Atherosclerotic heart disease of [place] coronary artery without angina pectoris - Body mass index [BMI] 22.0-22.9, adult - Cachexia - Dehydration - Do not resuscitate - Epilepsy, unspecified, not intractable, without status epilepticus - Essential (primary) hypertension - Hyperlipidemia, unspecified - Hypokalemia - watermaster (current) use of opiate analgesic - Old myocardial infarction - Other computer terminal operator (current) drug therapy - Other specified postprocedural states - Personal history of transient ischemic attack (TIA), and cerebral infarction without residual deficits - Retention of urine, unspecified - Rhabdomyolysis - Unspecified dementia, unspecified severity, without behavioral disturbance, psychotic disturbance, mood disturbance, and anxiety - Unspecified fall, initial encounter - Unspecified osteoarthritis, unspecified site - Unspecified severe protein-calorie malnutrition - Urinary tract infection, site not specified [email or web address]
[2025-02-12] MEDS ORDERED: SODIUM CHLORIDE 0.9% 500 ML IV ONE (13:15)
[2025-02-12] MEDS ORDERED: ondansetron HCL 4 MG/2 ML VIAL IV ONE (13:15)
[2025-02-12 13:23] LABS: BASOPHILS 0.5 % (0.1-1.2); EOSINOPHILS 0.2 % (0.7-5.8); HEMATOCRIT 35.3 % (34.1-44.9); HEMOGLOBIN 11.7 g/dL (11.2-15.7); LYMPHOCYTES 9.6 % (19.3-51.7); MCH 29.9 PG (25.6-32.2); MCHC 33.1 g/dL (32.2-35.5); MCV 90.3 fL (79.4-94.8); MONOCYTES 9.7 % (4.7-12.5); NEUTROPHILS 79.5 % (34.0-71.1); PLATELET COUNT 495 K/uL (182-369); RBC 3.91 M/uL (3.93-5.22)
[2025-02-12 13:36] LABS: ALBUMIN 2.8 g/dL (3.4-5.0); ALBUMIN/GLOBULIN RATIO 0.56 (1.1-2.4); BILIRUBIN, TOTAL 0.4 mg/dL (0.2-1.0); BUN/CREATININE RATIO 15.53 (6.0-28.6); CALCIUM 9.6 mg/dL (8.5-10.1); CREATININE, SERUM 3.09 mg/dL (0.55-1.02); PROTEIN, TOTAL 7.8 g/dL (6.4-8.2)
[2025-02-12 13:41] LABS: BILIRUBIN, URINE NEGATIVE (negative); BLOOD/HGB, URINE LARGE (Negative); KETONE, URINE NEGATIVE (Negative); LEUK ESTERASE, URINE LARGE (negative); NITRITE, URINE NEGATIVE (negative)
[2025-02-12 13:47] LABS: RED BLOOD CELLS, URINE 0-1 /hpf (0-5); WHITE BLOOD CELLS, URINE >50 /HPF (0-5)
[2025-02-12 13:48] LABS: BACTERIA, URINE RARE /hpf (negative); CASTS, URINE NONE SEEN \\lpf; COLLECTION TYPE, URINE CATH; CRYSTALS, URINE NONE SEEN (0-1+); EPITHELIAL CELLS, URINE 0 /lpf (0-1+); REFLEX CULTURE, URINE Yes (No)
[2025-02-12] MEDS ORDERED: SODIUM CHLORIDE 0.9% 1,000 ML IV ONE (14:15)
[2025-02-12] MEDS ORDERED: CEFTRIAXONE SODIUM 2 GM in SODIUM CHLORIDE 0.9% 100 ML IV ONE (14:15)
[2025-02-12] MEDS ORDERED: SODIUM CHLORIDE 0.9% 1,000 ML IV SCH (14:45)
[2025-02-12] MEDS ORDERED: ACETAMINOPHEN 325 MG TAB PO PRN (14:45)
[2025-02-12] MEDS ORDERED: NICOTINE 21 MG/24 HR 1 EA TDSY TD PRN (15:45)
[2025-02-12 15:50] VITALS: BP 133/76
[2025-02-12 16:17] VITALS: BP 133/76
--- NOTE | 2025-02-12 16:24 | NUR ---
PT TRANSFERRED TO [facility] ORIENTED TO CALL LIGHT, BED CONTROLS AND ROUTINE. SOUP AND WARM BLANKET PROVIDED PER REQUEST.
[2025-02-12 17:08] LABS: ANION GAP 16.4 (7-21); BUN/CREATININE RATIO 15.3 (6.0-28.6); CREATININE, SERUM 2.81 mg/dL (0.55-1.02); POTASSIUM 4.4 mmol/L (3.5-5.1)
--- NOTE | 2025-02-12 17:38 | NUR ---
CLEANSED PT'S BOTTOM AND APPLIED BARRIER CREAM AND FRESH UNDERGARMENT. PT IS COOPERATIVE MOVES SIDE TO SIDE ASSISTING WITH CARE. OFFERED SEVERAL FOOD ITEMS PT EATS BITES ONLY BUT DID HAVE SOUP EARLIER
[2025-02-12 18:05] VITALS: BP 148/53
--- NOTE | 2025-02-12 18:57 | NUR ---
PT WATCHING TV
--- NOTE | 2025-02-12 19:10 | NUR ---
REPORT RECEIVED FROM IDA ARANA. pt RESTING IN THE BED. BOARD UPDATED. pt REQUESTED JESUS ALBERTO AT THIS TIME. DRINK PROVIDED. NO OTHER NEEDS AT THIS TIME. CALL LIGHT WITHIN REACH.
[2025-02-12 19:52] VITALS: BP 116/87
--- NOTE | 2025-02-12 20:00 | NUR ---
ASSESSMENT AND VITAL SIGNS DONE. PURE WICK PLACED. IV ASSESSED, WNL. WATER REFRESHED. pt DENIES ANY OTHER NEEDS AT THIS TIME. CALL LIGHT WITHIN REACH.
[2025-02-12 21:30] LABS: ANION GAP 16.7 (7-21); BUN/CREATININE RATIO 15.03 (6.0-28.6); CALCIUM 8.3 mg/dL (8.5-10.1); CREATININE, SERUM 2.86 mg/dL (0.55-1.02); POTASSIUM 4.7 mmol/L (3.5-5.1)
--- NOTE | 2025-02-12 21:45 | NUR ---
THIS RN CALLED MD WITH THE RESULT OF THE 2099 BMP. NO NEW ORDERS AT THIS TIME. pt DENIES ANY NEEDS AT THIS TIME. CALL LIGHT WITHIN REACH. NEW ATTEMPT AT IV WITH NO SUCCESS.
--- NOTE | 2025-02-12 23:00 | NUR ---
IN RM TO CHECK ON pt. pt RESTING IN THE BED WITH EYES CLOSED. RR EVEN AND UNLABORED. CALL LIGHT WITHIN REACH.
[2025-02-13] VITALS (11 sets, daily range): BP systolic 119–149; BP diastolic 48–72
--- NOTE | 2025-02-13 01:23 | NUR ---
IN RM TO DO VITAL SIGNS. pt DENIES ANY OTHER NEEDS AT THIS TIME. ASSESSMENT DONE. URINE IS CLOUDY AND HAS SEDIMENT. CALL LIGHT WITHIN REACH.
--- NOTE | 2025-02-13 03:26 | NUR ---
pt RESTING IN THE BED WITH EYES CLOSED. RR EVEN AND UNLABORED. CALL LIGHT WITHIN REACH.
--- NOTE | 2025-02-13 04:18 | NUR ---
pt RESTING IN THE BED WITH EYES CLOSED. RR EVEN AND UNLABORED. CALL LIGHT WITHIN REACH.
[2025-02-13 06:02] LABS: BASOPHILS 0.5 % (0.1-1.2); EOSINOPHILS 0.1 % (0.7-5.8); HEMATOCRIT 31.8 % (34.1-44.9); HEMOGLOBIN 10.5 g/dL (11.2-15.7); LYMPHOCYTES 6.9 % (19.3-51.7); MCV 90.9 fL (79.4-94.8); NEUTROPHILS 78.9 % (34.0-71.1); PLATELET COUNT 428 K/uL (182-369)
[2025-02-13 06:14] LABS: ANION GAP 15.8 (7-21); BUN/CREATININE RATIO 14.49 (6.0-28.6); CALCIUM 8.9 mg/dL (8.5-10.1); CREATININE, SERUM 2.69 mg/dL (0.55-1.02); MAGNESIUM 1.9 mg/dL (1.8-2.4); POTASSIUM 4.8 mmol/L (3.5-5.1)
--- NOTE | 2025-02-13 07:28 | NUR ---
REPORT RECEIVED FROM SUMIT CHIN. PATIENT RESTING IN BED WITH EYES CLOSED, RR EVEN AND UNLABORED, BED IN LOWEST POSITION WITH BED ALARM ON. CALL LIGHT IN REACH.
--- NOTE | 2025-02-13 07:52 | NUR ---
PATIENT LAYING IN BED. PATIENTS BRIEF AND PUREWICK WERE CHECK AND WERE NOT SOILED. PATIENT REFUSED AM CARE. PATIENT HAS NO FURTHER NEEDS AT THIS TIME. CALL LIGHT IN REACH.
[2025-02-13] MEDS ORDERED: SODIUM CHLORIDE 0.9% 1,000 ML IV SCH (08:00)
--- NOTE | 2025-02-13 08:39 | NUR ---
PATIENT PURWICK AND BRIEF WAS CHANGED. PERICARE WAS DONE. PATIENT IS NOW LAYING IN BED WITH NO FURTHER NEEDS AT THIS TIME. CALL LIGHT IN REACH.
--- NOTE | 2025-02-13 08:56 | NUR ---
MEDICATION ADMINISTERED, SEE MAR. PHYSICAL AND OCCUPATIONAL THERAPY ARRIVE TO WORK WITH PATIENT. BOTH REMAIN WITH PATIENT AT THIS TIME.
[2025-02-13] MEDS ORDERED: TAMSULOSIN HCL 0.4 MG CAP PO SCH (09:00)
[2025-02-13] MEDS ORDERED: ENOXAPARIN SODIUM 40 MG/0.4 ML SYR SUB-Q SCH (09:00)
[2025-02-13] MEDS ORDERED: CEFTRIAXONE SODIUM 1 GM in SODIUM CHLORIDE 0.9% 100 ML IV SCH (09:00)
[2025-02-13] MEDS ORDERED: levETIRAcetam 500 MG TAB PO SCH (09:00)
[2025-02-13] MEDS ORDERED: ENOXAPARIN SODIUM 30 MG/0.3 ML SYR SUB-Q SCH (09:00)
--- NOTE | 2025-02-13 09:04 | NUR ---
PATIENT'S IV IS NOTED TO BE LEAKING DURING ABX INFUSION. IV SALINE LOCKED AT THIS TIME PATIENT IS CURRENTLY WORKING WITH PHYSICAL AND OCCUPATIONAL THERAPY.
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
--- NOTE | 2025-02-13 09:34 | NUR ---
ASSESSMENT COMPLETE. IV TO PATIENT'S LEFT AC CONTINUES LEAKING AFTER CHANGING DRESSING AND EXTENSION TUBING. NEW IV PLACED TO PATIENT'S RIGHT FOREARM. PATIENT TOLERATES WELL. IV ABX INFUSING WNL TO PATIENT'S RIGHT FOREARM. PATIENT COMPLAINS OF GENERAL BADACHES, BUT DECLINES MEDICATIONS AND ACCEPTS WARM BLANKETS. PATIENT REPORTS THAT SHE IS TIRED OF TALKING TO PEOPLE AND WOULD LIKE TO REST WITH A FRESH CUP OF COFFEE. COFFEE PROVIDED. CALL LIGHT AND PERSONAL BELONGINGS IN REACH. PUREWICK IN PLACE. BED IN LOWEST POSITION WITH BED ALARM ON.
--- NOTE | 2025-02-13 09:40 | NUR ---
PT NOT AVAILABLE FOR VISIT. PROVIDED PRAYER.
--- NOTE | 2025-02-13 09:58 | NUR ---
PATIENT LAYING IN BED. BEDBATH AND PERICARE WAS DONE. CLOTHING AND LINEN CHANGED. VITAL SIGNS AND I&OS WERE DONE. CALL LIGHT IN REACH AND NO FURTHER NEEDS AT THIS TIME.
--- NOTE | 2025-02-13 10:13 | NUR ---
medications reconciled using pharmacy records
--- NOTE | 2025-02-13 10:42 | NUR ---
[employer] AIDE PRESENT IN ROOM WITH PATIENT TO ASSESS. PATIENT RESTING IN BED, IVF INFUSING TO RIGHT FOREARM WNL. NO REQUESTS, CALL LIGHT AND PERSONAL BELONGINGS IN REACH, BED ALARM ON.
--- NOTE | 2025-02-13 11:10 | NUR ---
Isabel Barajas from [facility], here to visit Rhina. She is also trying to find a phone number for pts cg. Pt is now stating her cg is Amparo. Updated Amparo we will need to wait for the cg to arrive and I have notified staff to get a phone number if she calls.
--- NOTE | 2025-02-13 11:47 | NUR ---
PATIENT'S CAREGIVER 'YFN' ARRIVES, CASE MANAGEMENT ALERTED THEY WANTED TO SPEAK WITH HER.
--- NOTE | 2025-02-13 11:50 | NUR ---
Notified by staff pts cg here. In to room and cg Candi Anton phone sweta [phone] in room. He phone is currently off, but will have service tomorrow. She plans on picking pt up when she is discharged. I let her know, I do not have a time or day for dc at this time. I will call her when I have more info.
--- NOTE | 2025-02-13 11:51 | NUR ---
PATIENT'S HOME CAREGIVER 'YFN' PRESENT IN ROOM WITH JASON FROM CASE MANAGEMENT WELL MACHINE REPAIRER MAINTENANCE, [place]. PATIENT IS RESTING IN BED AND COMPLAINS THAT SHE IS HUNGRY. NO REQUESTS, CALL LIGHT AND PERSONAL BELONGINGS IN REACH.
[2025-02-13] MEDS ORDERED: PHARMACY RENAL DOSE ADJUSTMENT 1 DOSE MISC PO SCH (12:00)
--- NOTE | 2025-02-13 12:05 | NUR ---
MD IN TO ASSESS AND VISIT PATIENT. PATIENT STILL HAS CAREGIVER AND SOCIAL WORK PRESENT IN ROOM THROUGHOUT. ALL UPDATED ON PLAN OF CARE. PATIENT HAS NO REQUESTS, CALL LIGHT IN REACH, BED IN LOWEST POSITION WITH BED ALARM ON.
[2025-02-13 12:37] LABS: ANION GAP 14.6 (7-21); BUN/CREATININE RATIO 14.4 (6.0-28.6); CALCIUM 8.7 mg/dL (8.5-10.1); CREATININE, SERUM 2.43 mg/dL (0.55-1.02); POTASSIUM 4.6 mmol/L (3.5-5.1)
--- NOTE | 2025-02-13 13:47 | NUR ---
PATIENT BRIEF WAS CHANGED AND FERNANDO CARE WAS COMPLETED. VITAL SIGNS AND I&OS WERE DONE. PATIENT STARTED RAISING HER VOICE AND STATING THAT HER BP CUFF WAS TO TIGHT AND REFUSING TO HAVE HER BP TAKEN. BP CUFF WAS CHANGED TO OTHER ARM AND BP WAS TAKEN. PATIENT WAS GIVEN A WARM BLANKET. PATIENT IS LAYING IN BED WITH CALL LIGHT IN REACH AND NO FURTHER NEEDS AT THIS TIME.
--- NOTE | 2025-02-13 14:50 | NUR ---
LAB IN TO COLLECT REPEAT BLOOD CULTURES, PATIENT DOES NOT TOLERATE WELL EVEN WITH DISTRACTION OFFERED. LAB FINISHES AND LEAVES AND PATIENT HAS TWO VISITORS ARRIVE IN ROOM PRESENTLY.
--- NOTE | 2025-02-13 16:05 | NUR ---
LAB IN WITH PATIENT TO REPEAT BLOOD DRAW. NICOLE TODD ALSO PRESENT IN ROOM TO DISTRACT. WARM BLANKET PROVIDED. PATIENT DENIES PAIN AT THIS TIME. IVF INFUSING TO RIGHT FOREARM WNL.
[2025-02-13 16:28] LABS: ANION GAP 15.6 (7-21); BUN/CREATININE RATIO 15.65 (6.0-28.6); CALCIUM 8.1 mg/dL (8.5-10.1); CREATININE, SERUM 2.3 mg/dL (0.55-1.02); POTASSIUM 4.6 mmol/L (3.5-5.1)
--- NOTE | 2025-02-13 16:29 | NUR ---
PATIENT BRIEF AND PURWICK WAS CHANGED. PERICARE WAS PREFORMED. PATIENTS WATER WAS REFILLED. PATIENTS CALL LIGHT WAS IN REACH AND NO FURTHER NEEDS AT THIS TIME.
--- NOTE | 2025-02-13 16:58 | NUR ---
PATIENT RESTING IN BED WITH EYES CLOSED, RR EVEN AND UNLABORED. IV FLUID INFUSING TO RIGHT FOREARM WNL. CALL LIGHT IN REACH, BED ALARM ON, BED IN LOWEST POSITION.
--- NOTE | 2025-02-13 17:37 | NUR ---
NEW BRIEF AND CHUX PLACED, FERNANDO-CARE PROVIDED, ALLEVYN PLACED TO COCCYX/SACRUM OVER BLANCHABLE REDNESS, NEW PUREWICK PLACED. PATIENT ROLLS INDEPENDENTLY IN BED AND TOLERATES ALL CARES WELL. NO REQUESTS AT THIS TIME. NICOLE PEREZ REMAINS IN ROOM FOR VS AND I&Os.
--- NOTE | 2025-02-13 17:41 | NUR ---
PATIENT LAYING IN BED. FERNANDO CAR AND PUREWICK WAS CHANGED. PATIENT WAS SAT UP FOR DINNER. VITAL SIGNS WERE DONE. CALL LIGHT IN REACH AND NO FURTHER NEEDS AT THIS TIME.
--- NOTE | 2025-02-13 19:15 | NUR ---
REPORT RECEIVED FROM JEFFERSON ARANA. pt RESTING IN THE BED. BOARD UPDATED. pt DENIES ANY OTHER NEEDS AT THIS TIME. CALL LIGHT WITHIN REACH.
--- NOTE | 2025-02-13 20:20 | NUR ---
pt CALLING OUT, REQUESTS HOME SLEEP MEDICATION. VERBAL ORDER RECEIVED FROM MD. ORDER REPEATED BACK TO VERIFY. EMAR UPDATED.
--- NOTE | 2025-02-13 20:35 | NUR ---
ASSESSMENT AND VITAL SIGNS DONE. BRIEF CHANGED AND PURE WICK CHANGED BY WRONG ADDRESS CLERK AND SHEEP FARM WORKER. WATER REFRESHED. IV ASSESSED, WNL. pt DENIES ANY OTHER NEEDS AT THIS TIME. URINE IS CLOUDY.
--- NOTE | 2025-02-13 20:46 | NUR ---
pt CONTINUES TO YELL OUT FOR SLEEPING MEDICATIONS. PRIMARY RN NOTIFIED. THIS RN ADMINISTERS SCHEDULED MEDICATION AND PRN TYLENOL PER pt REQUEST. pt'S ATTENDS WET AROUND PUREWICK. FERNANDO CARE COMPLETE, NEW ATTENDS AND PUREWICK PLACED. PRIMARY RN NOW IN ROOM ASSESSING pt.
[2025-02-13] MEDS ORDERED: MELATONIN 3 MG TAB PO SCH (21:00)
--- NOTE | 2025-02-13 23:17 | NUR ---
pt RESPOSITIONED WITH PILLOW UNDER LEFT SIDE. ORAL CARE DONE. NO OTHER NEEDS AT THIS TIME. CALL LIGHT WITHIN REACH.
--- NOTE | 2025-02-13 23:19 | NUR ---
pt RESTING IN THE BED WITH EYES CLOSED. RR EVEN AND UNLABORED. CALL LIGHT WITHIN REACH.
[2025-02-14] VITALS (7 sets, daily range): BP systolic 117–181; BP diastolic 60–90
--- NOTE | 2025-02-14 01:33 | NUR ---
IV ALARMING. NEW BAG OF IVF INFUSING PER ORDER. pt DENIES ANY OTHER NEEDS AT THIS TIME. CALL LIGHT WITHIN REACH.
--- NOTE | 2025-02-14 02:58 | NUR ---
pt RESTING IN THE BED WITH EYES CLOSED. RR EVEN AND UNLABORED. CALL LIGHT WITHIN REACH.
[2025-02-14 06:04] LABS: BASOPHILS 0.5 % (0.1-1.2); EOSINOPHILS 1.7 % (0.7-5.8); HEMATOCRIT 29.6 % (34.1-44.9); HEMOGLOBIN 9.6 g/dL (11.2-15.7); LYMPHOCYTES 14.1 % (19.3-51.7); MCH 30.5 PG (25.6-32.2); MCHC 32.4 g/dL (32.2-35.5); MONOCYTES 12.6 % (4.7-12.5); NEUTROPHILS 70.1 % (34.0-71.1); PLATELET COUNT 381 K/uL (182-369); RBC 3.15 M/uL (3.93-5.22)
--- NOTE | 2025-02-14 06:06 | NUR ---
IN RM TO DO VITAL SIGNS WITH ENTRY TECH. BRIEF CHANGED. PURE WICK CHANGED. ASSESSMENT DONE. WATER REFRESHED. COFFEE AND BROTH PROVIDED. pt DENIES ANY OTHER NEEDS AT THIS TIME. CALL LIGHT WITHIN REACH.
[2025-02-14 06:15] LABS: ANION GAP 14.6 (7-21); BUN/CREATININE RATIO 14.64 (6.0-28.6); CALCIUM 8.4 mg/dL (8.5-10.1); CREATININE, SERUM 1.98 mg/dL (0.55-1.02); MAGNESIUM 1.7 mg/dL (1.8-2.4); POTASSIUM 4.6 mmol/L (3.5-5.1)
--- NOTE | 2025-02-14 07:30 | NUR ---
RECIEVED SHIFT REPORT. PT IS RESTING, EYES CLOSED, BREATHING EVEN AND UNLABORED. CALL LIGHT IN REACH.
[2025-02-14] MEDS ORDERED: MAGNESIUM SULFATE 2 GM/50 ML BAG IV ONE (09:00)
--- NOTE | 2025-02-14 09:18 | NUR ---
PT UP IN CHAIR AT THIS TIME WORKING WITH OT AT THIS TIME. IV FLUIDS RESTARTED, IV ABX STARTED - SEE OCT. OT REQUESTING HELP FROM THIS RN SHE NEEDED NEW ATTENDS AND CHANGE OF UNDER PAD IN CHAIR. CURRENTLY LEFT WITH OT TO FINISH WITH CARES. CALL LIGHT WITHIN REACH, PT SETTING ON A CHAIR ALARM FOR SAFETY. PT UP IN CHAIR.
--- NOTE | 2025-02-14 09:34 | NUR ---
INTO SEE PATIENT. PATIENT STATES "GOD DAMN EVERY TIME I TRY TO SLEEP SOMEONE NEW COMES INTO THIS ROOM." LET PATIENT REST. PATIENT HAS NO CM NEEDS AT THIS TIME. PLAN IS TO GO HOME WITH CG WHEN MEDICALLY CLEARED FOR DISCHARGE.
--- NOTE | 2025-02-14 10:33 | NUR ---
MORNING ASSESSMENT COMPLETE. PT IS AWAKE IN RECLINER REQUESTING TO GO THE BED. DISCUSSED WITH PT THE IMPORTANCE OF STAYING UP IN THE CHAIR. SHE STATES SHE USUALLY STAYS IN HER BED AT HOME, AND GAVE HER CHAIR TO THE DOGS. DENIES NEEDS AT THIS TIME, CALL LIGHT IN REACH
--- NOTE | 2025-02-14 12:09 | NUR ---
PATIENT TRANSFERS FROM RECLINER TO BED WITH MODERATE ASSIST X2 AND INDEPENDENTLY SWINGS HER LEGS INTO BED. FERNANDO-CARE PROVIDED, FRESH BRIEF AND PUREWICK PLACED BY NICOLE RODAS. PATIENT NOW RESTING IN BED WITH IVF INFUSING TO HER RIGHT FOREARM AND COMPLAINTS OF "ALL OVER" PAIN RATED 6/10. PRN PAIN MEDICATION ADMINISTERED, SEE MAR. CALL LIGHT AND PERSONAL BELONGINGS IN REACH. BED IN LOWEST POSITION WITH BED ALARM ON. PATIENT HAS NO OTHER REQUESTS.
--- NOTE | 2025-02-14 15:30 | NUR ---
PATIENT REPORTS "HEART BURN" AND REQUESTS A SPRITE SHE STATES THIS WILL RELIEVE IT. NO OTHER REQUESTS, RESTING IN BED. CALL LIGHT AND PERSONAL BELONGINGS IN REACH, BED IN LOWEST POSITION WITH BED ALARM ON.
--- NOTE | 2025-02-14 17:18 | NUR ---
PATIENT CALLING SHE HAS SPILLED HER CHOCOLATE PROTEIN DRINK. LINENS CHANGED, FRESH DRINK PROVIDED. PATIENT IS IN GOOD SPIRITS, EATING SUPPER IN BED WITH HOB ELEVATED. NO REQUESTS, CALL LIGHT AND PERSONAL BELONGINGS IN REACH, BED IN LOWEST POSITION WITH BED ALARM ON.
--- NOTE | 2025-02-14 19:25 | NUR ---
REPORT RECEIVED FROM DAYSHIFT RN. PATIENT RESTING IN BED WITH CONTINUOUS IVF. RESPIRATIONS ARE EVEN AND UNLABORED. NO NEEDS IDENTIFIED, CALL LIGHT IN REACH.
--- NOTE | 2025-02-14 21:30 | NUR ---
SCHEDULED MED GIVEN PER ORDER. ASSESSMENT COMPLETED. DOTTIE ARANA NOTIFIED THIS RN THAT PATIENT HAD PULLED IV OUT. MD AT NURSES STATION, INFORMED OF IV OUT. HE STATES THAT IT IS OKAY TO HAVE IV OUT AT THIS TIME UNTIL NEXT ANTIBIOTIC IS DUE. PATIENT ALERT AND ORIENTED X4. CALL LIGHT IN REACH. NO FURTHER NEEDS AT THIS TIME.
--- NOTE | 2025-02-14 23:21 | NUR ---
CALL LIGHT ANSWERED. PT STATED SHE WAS WET AND NEEDED TO BE CHANGED. DIRECTOR EXPORT CHANGED PT BRIEF AND PUREWICK. PT GIVEN MILK UPON REQUEST. PT STATES NO FURTHER NEEDS AT THIS TIME. CALL LIGHT WITHIN REACH AND BED ALARM ON.
[2025-02-15] VITALS (9 sets, daily range): BP systolic 149–189; BP diastolic 60–70
--- NOTE | 2025-02-15 00:57 | NUR ---
CALL LIGHT ANSWERED, PATIENT REPORTS SHE IS WET. PURWICK IN PLACE, BRIEF IS DRY. PATIENT REPORTS SHE HAS BEEN PEEING AND WANTS TO KNOW WHERE IT IS GOING. PURDOMI AND SUCTION IVONNE EXPLAINED. PATIENT VERBALIZED UNDERSTANDING. GIVEN PUDDING PER REQUEST. SHE DENIES ANY OTHER NEEDS, CALL LIGHT IN REACH
--- NOTE | 2025-02-15 01:19 | NUR ---
CALL LIGHT ANSWERED, WARM BLANKETS GIVEN PER REQUEST. NO FURTHER NEEDS, CALL LIGHT IN REACH
--- NOTE | 2025-02-15 05:15 | NUR ---
VS OBTAINED, INTAKE AND OUTPUT DOCUMENTED. PATIENT ALERT AND ORIENTED X4. NO NEEDS, CALL LIGHT IN REACH.
[2025-02-15 05:26] LABS: BASOPHILS 0.5 % (0.1-1.2); EOSINOPHILS 1.8 % (0.7-5.8); HEMATOCRIT 27.1 % (34.1-44.9); LYMPHOCYTES 14.3 % (19.3-51.7); MCHC 33.2 g/dL (32.2-35.5); MCV 90.3 fL (79.4-94.8); MONOCYTES 10.1 % (4.7-12.5); NEUTROPHILS 72.4 % (34.0-71.1); PLATELET COUNT 365 K/uL (182-369)
[2025-02-15 05:37] LABS: ANION GAP 14.5 (7-21); BUN/CREATININE RATIO 16.44 (6.0-28.6); CALCIUM 8.1 mg/dL (8.5-10.1); CREATININE, SERUM 1.52 mg/dL (0.55-1.02); MAGNESIUM 1.9 mg/dL (1.8-2.4); POTASSIUM 4.5 mmol/L (3.5-5.1)
--- NOTE | 2025-02-15 06:05 | NUR ---
NEW IV PLACED. CONT. IVF RESTARTED. PATIENT RESTING IN BED, GIVEN FRESH WATER. DENIES ANY NEEDS, CALL LIGHT IN REACH
--- NOTE | 2025-02-15 07:42 | NUR ---
REPORT RECEIVED FROM SUMIT MG. PATIENT IS RESTING IN BED WITH EYES CLOSED, RR EVEN AND UNLABORED. BED ALARM ON, CALL LIGHT IN REACH.
[2025-02-15] MEDS ORDERED: POLYETHYLENE GLYCOL 3350 1 PACKET PO ONE (07:45)
--- NOTE | 2025-02-15 09:14 | NUR ---
THIS RN CALLED IN BY PT TO HELP ASSIST WITH PATIENT NEEDS. PT GETTING UP FROM BED TO CHAIR AND ATTENDS SATURATED, DOES NOT APPEAR THE PUREWICK WAS WORKING COMPLETELY. PATIENT CLEANED UP, GOWN CHANGED, LINENS ON BED STRIPPED. PT DOES NOT CURRENTLY HAVE PUREWICK IN PT WORKING WITH PT, NICOLE PEREIRA NOTIFIED TO SEE IF WE CAN GET ONE WHEN PT DONE WORKING WIHT PATIENT. PT WATCHING TV AT THIS TIME, CHAIR ALARM IN PLACE, CALL LIGHT WITHIN REACH. FRESH ICE WATER PROVIDED TO PATIENT, DENIES ANY OTHER NEEDS AT THIS TIME.
--- NOTE | 2025-02-15 09:35 | NUR ---
MEDICATION ADMINISTERED, SEE MAR. ASSESSMENT COMPLETE. PATIENT IS UP IN RECLINER AFTER BEING CLEANED UP BY NICOLE PEREIRA AND ASSISTED TO RECLINER WITH NICOLE AND PHYSICAL THERAPY. PATIENT HAS NO COMPLAINTS AT THIS TIME. JASON FROM CASE MANAGEMENT ARRIVES TO VISIT PATIENT. PATIENT HAS CALL LIGHT IN REACH, CHAIR ALARM ON.
--- NOTE | 2025-02-15 09:36 | NUR ---
PATIENTS IN CHAIR AT THIS TIME. NICOLE PEREIRA CHANGED PATIENTS LINENS AND PLACED NEW PUREWICK @ 4012. CALL LIGHT WITHIN REACH, NO FURTHER NEEDS AT THIS TIME.
--- NOTE | 2025-02-15 09:58 | NUR ---
PATIENT ATE 100% OF GF TOAST (SOY FREE) WITH BUTTER AND JAM AND CORRAL THIS MORNING. STATES SHE DOESN'T WANT OATMEAL BECAUSE "I AM TIRED OF IT." SHE SAID THE PEACHES ARE TOO SOUR. SHE DRANK 90% OF A CHOCOLATE ENSURE MAX LAST NIGHT AND ATE 75% OF THE CUSHION GUM APPLICATOR, 50% OF THE LUIS ANGEL ENSURE MAX SHAKE WITH ANTONIA ICE CREAM (SPILLED HALF OF IT), AND ATE 1 SLICE OF CHEESE. SHE IS A PICKY EATER, HAS NO TEETH, AND A SOY ALLERGY. DIETARY IS WORKING HARD TO PROVIDE FOODS SHE DOES LIKE WHICH HAS IMPROVED HER PO INTAKE THE PAST 2 DAYS. DIET IS A SOFT DIET WITH EASY TO CHEW ITEMS. SEEMS LIKE HER DESIRE TO WANT TO EAT HAS IMPROVED, TOO. NO CHANGES TO CURRENT DIET ORDER. NUTRITION GOAL: PATIENT TO CONSUME AT LEAST 50% OF MEALS AND DRINK AT LEAST 1 ENSURE MAX PROTEIN PER DAY. PATIENT REMAINS AT MODERATE NUTRITION RISK AND RD WILL FOLLOW UP IN 7 DAYS.
--- NOTE | 2025-02-15 10:00 | NUR ---
Spoke with Rhina. She is teasing. Denies needs. Wants to go home. CG is their daily except weekends.
--- NOTE | 2025-02-15 10:27 | NUR ---
PATIENT IS UP IN HER CHAIR AT THIS TIME, TANK SETTER CHARTED VITALS AND I&O'S, PULLED HER UP IN HER CHAIR, CALL LIGHT WITH IN REACH AND NOTHING ELSE NEEDED AT THIS TIME.
--- NOTE | 2025-02-15 13:45 | NUR ---
PT REQUESTED TO RETURN TO BED. PT NOTED TO HAVE WET DIAPER DESPITE PUREWICK. PUREWICK CHANGED PER PROTOCOL. PT RETURNED TO BED WITH MOD ASSIST X 2. BED ALARM ACTIVATED, SIDERAILS UP X2, CALL VILLA IN REACH, BED LOW POSITION AND LOCKED.
--- NOTE | 2025-02-15 18:30 | NUR ---
VS AND I&0s OBTAINED AND RECORDED. CHUX AND BRIEF CHANGED, FERNANDO-CARE PROVIDED, PUREWICK PLACED. PATIENT IS ALTERNATELY CRYING AND LAUGHING WHILE DISCUSSING HER LIFE. THERAPEUTIC COMMUNICATION PROVIDED. PATIENT IS RESTING IN BED WITH HOB ELEVATED, NO REQUESTS, CALL LIGHT AND PERSONAL BELONGINGS IN REACH, BED IN LOWEST POSITION WITH BED ALARM ON.
--- NOTE | 2025-02-15 19:18 | NUR ---
REPORT RECEIVED FROM DAYSHIFT RN. PATIENT RESTING IN BED, WATCHING TV. RESPIRATIONS ARE EVEN AND UNLABORED. NO NEEDS IDENTIFIED, CALL LIGHT IN REACH.
--- NOTE | 2025-02-15 20:55 | NUR ---
[facility] MEDS ADMINISTERED-PT REQUESTED PRN TYLENOL FOR GENERALIZED ACHING 05/08, ADMINISTERED PER EMAR. FRESH ICE WATER PROVIDED PER REQUEST.
--- NOTE | 2025-02-15 21:50 | NUR ---
ROUNDED ON PATIENT, ASSESSMENT COMPLETED. PATIENT ORIENTED TO PERSON, PLACE, EVENT. NOT ORIENTED TO DATE. RESPIRATIONS ARE EVEN AND UNLABORED. SHE HAS NO COMPLAINTS AT THIS TIME. IVF CONTINUING TO INFUSE PER ORDER. CALL LIGHT IN REACH.
--- NOTE | 2025-02-15 23:40 | NUR ---
NEW IVF BAG HUNG, CONTINUING TO INFUSE PER ORDER. NEW PURWICK PLACED WITH COWLMAN ASSISTANCE. FRESH BRIEF PLACED. PERICARE PROVIDED. PATIENT DENIES ANY OTHER NEEDS AT THIS TIME, CALL LIGHT IN REACH.
--- NOTE | 2025-02-16 02:12 | NUR ---
PATIENT RESTING WITH EYES CLOSED, RESPIRATIONS EVEN AND UNLABORED. IVF CONTINUING TO INFUSE WITHOUT DIFFICULTY. NO NEEDS, CALL LIGHT IN REACH
[2025-02-16 05:08] VITALS: BP 166/71
[2025-02-16 05:16] LABS: BASOPHILS 0.6 % (0.1-1.2); EOSINOPHILS 2.5 % (0.7-5.8); HEMATOCRIT 29.2 % (34.1-44.9); HEMOGLOBIN 9.8 g/dL (11.2-15.7); LYMPHOCYTES 15.9 % (19.3-51.7); MCH 30.3 PG (25.6-32.2); MCHC 33.6 g/dL (32.2-35.5); MCV 90.4 fL (79.4-94.8); MONOCYTES 11.5 % (4.7-12.5); NEUTROPHILS 68.4 % (34.0-71.1); PLATELET COUNT 335 K/uL (182-369); RBC 3.23 M/uL (3.93-5.22)
--- NOTE | 2025-02-16 05:16 | NUR ---
ROUNDED ON PATIENT, GIVEN ICE WATER PER REQUEST. VS OBTAINED AND RECORDED, INTAKE AND OUTPUT DOCUMENTED. PATIENT ALERT AND ORIENTED TO ALL BUT DATE. IVF CONTINUING TO INFUSE WITHOUT DIFFICULTY. GIVEN WARM BLANKETS PER REQUEST. NO FURTHER NEEDS, CALL LIGHT IN REACH.
[2025-02-16 05:32] LABS: ANION GAP 15.7 (7-21); BUN/CREATININE RATIO 16.54 (6.0-28.6); CALCIUM 8.3 mg/dL (8.5-10.1); CREATININE, SERUM 1.33 mg/dL (0.55-1.02); MAGNESIUM 1.6 mg/dL (1.8-2.4); POTASSIUM 4.7 mmol/L (3.5-5.1)
--- NOTE | 2025-02-16 07:19 | NUR ---
Pt report received from SUMIT Berg. Pt is resting supine in bed, eyes closed, breathing is regular, even, and non-labored. Side rails up x4, call light in reach, white board updated.
[2025-02-16] MEDS ORDERED: MAGNESIUM SULFATE 2 GM/50 ML BAG IV SCH (08:00)
--- NOTE | 2025-02-16 08:06 | NUR ---
Dr. Rushing in with pt. IV S/L per order. Pt breakfast tray set up for her. Pt eating breakfast.
--- NOTE | 2025-02-16 08:15 | NUR ---
PATIENT IS IN BED AT THIS TIME, TENANT COORDINATOR OFFERED A WARM WASH CLOTH, GOT FRESH ICE WATER AND PULLED PATIENT UP IN BED. PATIENT IS EATTING BREAKFAST AT THE MOMENT, TENANT COORDINATOR GOT STUFF OUT TO ASSIST WITH ORAL CARE. CALL LIGHT WITH IN REACH AND NOTHING ELSE NEEDED AT THIS TIME.
[2025-02-16] MEDS ORDERED: LEVOFLOXACIN750 MG PO (08:16)
[2025-02-16] MEDS ORDERED: TAMSULOSIN HCL0.4 MG PO (08:17)
--- NOTE | 2025-02-16 08:23 | NUR ---
ATTEMPTED TO CONTACT CAREGIVER NICOLA TO LET HER KNOW PATIENT DISCHARGIN HOME TODAY. WILL ATTEMPT TO GET RIDE SETUP FOR PATIENT TO DISCHARGE LATER THIS MORNING.
[2025-02-16 09:00] VITALS: BP 145/65
[2025-02-16] MEDS ORDERED: lisinopriL 5 MG TAB PO SCH (09:00)
[2025-02-16] MEDS ORDERED: levETIRAcetam 500 MG TAB PO SCH (09:00)
--- NOTE | 2025-02-16 09:13 | NUR ---
THIS RN TO START ABX/MAGNESIUM IV, PT PULLED IV OUT THIS MORNING, SETTING ON HER TRAY. VERIFIED WITH MD, WOULD LIKE DOSE OF IV ABX/MG PRIOR TO DISCHARGE - PRIMARY RN NOTIFIED AND WILL RESTART IV FOR DOSE. NAC IN ROOM, ASSISTED PT UP TO CHAIR FOR BREAFKAST, PT REFUSED BREAKFAST, MEDS GIVEN, VS STABLE. 99% ON RA. CALL LIGHT WITHING REACH, CHAIR ALARM IN PLACE.
[2025-02-16 10:02] VITALS: BP 145/65
[2025-02-16 11:52] VITALS: BP 138/69
[2025-02-16 12:15] VITALS: BP 138/69
== END 2025-02-16 12:08 | disposition home or self-care (01) | DRG 683 ==
LOC: ED 13:00 → MS 14:53
PROVIDERS: Emergency Medicine; ADMIT Student in an Organized Health Care Education/Training Program; ATTEND Student in an Organized Health Care Education/Training Program
DX: N17.9 Acute kidney failure, unspecified (principal); E87.1 Hypo-osmolality and hyponatremia; R78.81 Bacteremia; J90 Pleural effusion, not elsewhere classified; N13.6 Pyonephrosis; E86.0 Dehydration; Z66 Do not resuscitate; Z74.01 Bed confinement status; M19.90 Unspecified osteoarthritis, unspecified site; B96.1 Klebsiella pneumoniae [K. pneumoniae] as the cause of diseases classified elsewhere; I10 Essential (primary) hypertension; I25.10 Atherosclerotic heart disease of native coronary artery without angina pectoris; F03.90 Unspecified dementia, unspecified severity, without behavioral disturbance, psychotic disturbance, mood disturbance, and anxiety; G40.909 Epilepsy, unspecified, not intractable, without status epilepticus; F17.210 Nicotine dependence, cigarettes, uncomplicated; R62.7 Adult failure to thrive; E83.42 Hypomagnesemia; I70.8 Atherosclerosis of other arteries; E78.5 Hyperlipidemia, unspecified; I25.2 Old myocardial infarction; Z79.1 Long term (current) use of non-steroidal anti-inflammatories (NSAID); Z79.899 Other long term (current) drug therapy; Z86.73 Personal history of transient ischemic attack (TIA), and cerebral infarction without residual deficits; Z90.710 Acquired absence of both cervix and uterus; Z90.89 Acquired absence of other organs; Z98.890 Other specified postprocedural states; Z88.8 Allergy status to other drugs, medicaments and biological substances; Z91.018 Allergy to other foods
CPT/HCPCS: 36415; 51701; 71045; 74176; 80048; 80053; 81001; 83735; 85025; 87040; 87077; 87088; 87186; 97161; 97165; 97530; 97535; 99285-25; A9270; J0696; J1650; J2405; J3475; J7030; J7040

== ENCOUNTER 2025-04-25 13:14 | Inpatient (IN) | payer MEDICARE, OTHER ==
[~2025-04-25] VITALS: Ht 162.6 cm; Wt 44.9 kg
[~2025-04-25 13:14] MED LIST changes: +LEVOFLOXACIN750 MG PO
--- OUTSIDE RECORDS SUMMARY | 2025-04-25 13:21 | XMS ---
PreManage Notification: CORIN WILKINSON Security Legal Billing Coordinator Events No recent Security Events currently on file CRITERIA MET - Group Notification CARE PROVIDERS -, [facility]: Traveling Construction Superintendent Current [place] PHONE: [phone] JESSICA YE Nurse Practitioner: Family Current PHONE: [phone] [facility]: [facility] Current FAMILY PHONE: [phone] TIFFANY QUINONEZ Physician Embossing Machine Operator Florentin DELONG PHONE: [phone] DEONDRE LINARES Nurse Practitioner: Adult Health Florentin RANGEL PHONE: [phone] [place]ryl HAMILTON Printing Estimator/Hollow Handle Bench Worker Current PHONE: [phone] [facility]ONE: Unknown [facility] has no Care Guidelines for this patient. EMalgorzata VISIT COUNT (12 MO.) 2 [facility] TOTAL 2 NOTE: Visits indicate total known visits. ED/UCC VISIT TRACKING (12 MO.) 04/25/2025 13:15 [facility] TYPE: Emergency COMPLAINT: - WEAKNESS 02/12/2025 13:00 [facility] TYPE: Emergency COMPLAINT: - URINE PROBLEM INPATIENT VISIT TRACKING (12 MO.) 02/12/2025 14:[address] [facility] TYPE: Medical Surgical COMPLAINT: - UTI DIAGNOSES: - Acquired absence of both cervix and uterus - Acquired absence of both cervix and uterus - Acquired absence of other organs - Acquired absence of other organs - Acute kidney failure, unspecified - Acute kidney failure, unspecified - Adult failure to thrive - Adult failure to thrive - Allergy status to other drugs, medicaments and biological substances - Allergy status to other drugs, medicaments and biological substances - Allergy to other foods - Allergy to other foods - Atherosclerosis of other arteries - Atherosclerotic heart disease of [place] coronary artery without angina pectoris - Atherosclerotic heart disease of [place] coronary artery without angina pectoris - Bacteremia - Bacteremia - Bed confinement status - Bed confinement status - Dehydration - Dehydration - Do not resuscitate - Do not resuscitate - Epilepsy, unspecified, not intractable, without status epilepticus - Epilepsy, unspecified, not intractable, without status epilepticus - Essential (primary) hypertension - Essential (primary) hypertension - Hyperlipidemia, unspecified - Hyperlipidemia, unspecified - Hypo-osmolality and hyponatremia - Hypo-osmolality and hyponatremia - Hypomagnesemia - Hypomagnesemia - Klebsiella pneumoniae [K. pneumoniae] as the cause of diseases classified elsewhere - Klebsiella pneumoniae [K. pneumoniae] as the cause of diseases classified elsewhere - penitentiary (current) use of non-steroidal anti-inflammatories (NSAID) - terminologist (current) use of non-steroidal anti-inflammatories (NSAID) - Nicotine dependence, cigarettes, uncomplicated - Nicotine dependence, cigarettes, uncomplicated - Old myocardial infarction - Old myocardial infarction - Other intermediate (current) drug therapy - Other intermediate teacher (current) drug therapy - Other malaise - Other specified postprocedural states - Other specified postprocedural states - Personal history of transient ischemic attack (TIA), and cerebral infarction without residual deficits - Personal history of transient ischemic attack (TIA), and cerebral infarction without residual deficits - Pleural effusion, not elsewhere classified - Pyonephrosis - Unspecified atherosclerosis - Unspecified atherosclerosis - Unspecified dementia, unspecified severity, without behavioral disturbance, psychotic disturbance, mood disturbance, and anxiety - Unspecified dementia, unspecified severity, without behavioral disturbance, psychotic disturbance, mood disturbance, and anxiety - Unspecified osteoarthritis, unspecified site - Unspecified osteoarthritis, unspecified site - Urinary tract infection, site not specified - Urinary tract infection, site not specified - Urinary tract infection, site not specified [email or web address]
[2025-04-25 13:59] LABS: BASOPHILS 0.4 % (0.1-1.2); EOSINOPHILS 0.3 % (0.7-5.8); LYMPHOCYTES 9.7 % (19.3-51.7); MCH 30.8 PG (25.6-32.2); MCHC 33.8 g/dL (32.2-35.5); MCV 91.1 fL (79.4-94.8); MONOCYTES 9.1 % (4.7-12.5); NEUTROPHILS 79.2 % (34.0-71.1); RBC 3.70 M/uL (3.93-5.22)
[2025-04-25 14:18] LABS: ALT (SGPT) 25.0 U/L (14-59); AST (SGOT) 16.0 U/L (15-37); GLOMERULAR FILTRATION RATE,EST 12.0 mL/min (>60); PROTEIN, TOTAL 8.0 g/dL (6.4-8.2); UREA NITROGEN 74.0 mg/dL (7-18)
[2025-04-25] MEDS ORDERED: SODIUM CHLORIDE 0.9% 1,000 ML IV PRN (16:00)
[2025-04-25 16:45] LABS: BLOOD/HGB, URINE MODERATE (Negative); KETONE, URINE NEGATIVE (Negative); LEUK ESTERASE, URINE MODERATE (negative); NITRITE, URINE POSITIVE (negative)
[2025-04-25 16:55] LABS: BACTERIA, URINE 1+ /hpf (negative); CASTS, URINE NONE SEEN \\lpf; CRYSTALS, URINE NONE SEEN (0-1+); EPITHELIAL CELLS, URINE NONE SEEN /lpf (0-1+); REFLEX CULTURE, URINE Yes (No)
[2025-04-25] MEDS ORDERED: ACETAMINOPHEN 325 MG TAB PO PRN (17:15)
[2025-04-25] MEDS ORDERED: SODIUM CHLORIDE 0.9% 1,000 ML IV SCH (17:15)
[2025-04-25] MEDS ORDERED: POLYETHYLENE GLYCOL 3350 1 PACKET PO PRN (17:30)
[2025-04-25 18:15] LABS: SODIUM, RANDOM URINE 107.0 mmol/L (NOT ESTABLISHED)
--- NOTE | 2025-04-25 18:28 | EKG ---
[facility] [address] [facility] [place] [address] Signed Sinus tachycardia with frequent premature ventricular complexes in a pattern of bigeminy Left axis deviation Right bundle branch block Possible Lateral infarct , age undetermined Inferior infarct (cited on or before 20-DEC-2023) Abnormal ECG When compared with ECG of 16-APR-2024 13:23, Significant changes have occurred Confirmed by Tomi Edge DO ([id number]) on 04/25/2025 6:27:59 PM Electronically Signed By: TOMI EDGE DO 04/25/25 1828 PATIENT NAME: CORIN WILKINSON JOSE CRUZ Electrocardiogram DATE OF : 38 PHYSICIAN: TOMI EDGE DO REPORT #: [id number] REPORT IS CONFIDENTIAL AND NOT TO BE RELEASED WITHOUT AUTHORIZATION
[2025-04-25 20:15] VITALS: BP 117/90
[2025-04-25] MEDS ORDERED: LISINOPRIL5 MG PO (20:16)
--- NOTE | 2025-04-25 20:53 | NUR ---
PT ARRIVAL TO ROOM 120 FROM ER. RECEIVED BEDSIDE REPORT, VSS. PT WTIH NON-BLANCHING REDNESS ON SACRUM. APPLIED BARRIER CREAM AND WAFFLE MATTRESS. PT FREQUENTLY AGITATED AND YELLING AT STAFF. PROVIDED ICE WATER AND VANILLA PUDDING. NO OTHER NEEDS CALL LIGHT IN REACH
[2025-04-25] MEDS ORDERED: MELATONIN 3 MG TAB PO PRN (21:00)
[2025-04-25] MEDS ORDERED: levETIRAcetam 500 MG TAB PO SCH (21:00)
--- NOTE | 2025-04-25 22:27 | NUR ---
PT RESTING IN BED WITH EYES CLOSED, RISE AND FALL OF CHEST NOTED. [facility]
--- NOTE | 2025-04-25 23:01 | NUR ---
RESPONDED TO BEEPING IV, REPOSITIONED ARM AND RESTARTED FLUIDS. LAB IN ROOM DRAWING BLOOD, PT COOPERTIVE BUT INTERMITTENTLY OUTBURSTS "JUST LEAVE ME THE FUCK ALONE" ETC. PROVIDED WARM BLANKETS. NO OTHER NEEDS, CALL LIGHT IN REACH, BED ALARM ACTIVE.
[2025-04-25 23:18] LABS: GLOMERULAR FILTRATION RATE,EST 13.0 mL/min (>60); UREA NITROGEN 72.0 mg/dL (7-18)
[2025-04-26] VITALS (9 sets, daily range): BP systolic 122–135; BP diastolic 52–93
--- NOTE | 2025-04-26 00:10 | NUR ---
pt's 2300 LAB DRAW SHOWS POTASSIUM RESULT OF 5.5-DISCUSSED WITH PRIMARY RN LENA ALLRED SUPERVISOR. PER PROTOCOL, TELE ORDERED.
--- NOTE | 2025-04-26 01:37 | NUR ---
RESPONDED TO BEEPING IV, REPLACED IV FLUIDS. WHILE IN ROOM, PT TELE MONITOR SHOWING HR OF 150S. ROOM FINGER MONITOR SHOWING HR OF 75, AUSCULTATED HR AND PULSE OF 72. AFTER VERIFYING LEADS ALL CORRECTLY IN PLACE, REPLACED TELEMONITOR BOX AND LEADS. HR NOW READING 76 ON TELE MONITOR. CALL LIGHT INREACH, BED ALARM ACTIVE
--- NOTE | 2025-04-26 02:49 | NUR ---
RESPONDED TO BEEPING IV. IV WORKING IWTH ARM REPOSITIION. PT ALERT IN BED, NO NEEDS FOR NOW. CALL LIGHT IN REACH, BED ALARM ACTIVE, FALL PADS AND SEIZURE PADS IN PLACE. BED ALARM ACTIVE
--- NOTE | 2025-04-26 04:19 | NUR ---
RESPONDED TO BEEPING IV. IV NOT FLUSHING DESPITE REPOSITIONING AND ADJUSTING TUBING, RE-DRESSING IV. CHANGED PT BRIEF, INCONT OF URINE X1. APPLIED BARRIER CREAM TO BACKSIDE. NO OTHER NEEDS PRESENTLY, CALL LIGHT IN REACH, BED ALARM ACTIVE
[2025-04-26 05:57] LABS: BASOPHILS 0.3 % (0.1-1.2); EOSINOPHILS 0.2 % (0.7-5.8); LYMPHOCYTES 5.7 % (19.3-51.7); MCH 31.3 PG (25.6-32.2); MCHC 34.4 g/dL (32.2-35.5); MCV 90.9 fL (79.4-94.8); MONOCYTES 9.1 % (4.7-12.5); NEUTROPHILS 83.8 % (34.0-71.1); RBC 3.42 M/uL (3.93-5.22)
--- NOTE | 2025-04-26 06:00 | NUR ---
REMOVED L IV, SCIENTIST/ENGINEER HELPFULLY PLACED NEW IV ON L FOREARM. REATTACHED TO NS. NO OTHER NEEDS, CALL LIGHT IN REACH
[2025-04-26 06:11] LABS: GLOMERULAR FILTRATION RATE,EST 14.0 mL/min (>60); PHOSPHORUS, INORGANIC 4.6 mg/dL (2.5-4.9); UREA NITROGEN 68.0 mg/dL (7-18)
--- NOTE | 2025-04-26 06:49 | NUR ---
RESTARTED IV NS. SODIUM 127 THIS AM. REQUESTS TO STOP FLUIDS WHEN SODIUM >130.
--- NOTE | 2025-04-26 07:20 | NUR ---
RECIEVED MORNING REPORT. PT IS RESTING IN BED AWAKE. CALL LIGHT IN REACH, SZ PRECAUTIONS IN PLACE.
[2025-04-26] MEDS ORDERED: HEParin SOD (PORCINE) 5,000 UNIT/ML SDV SUB-Q SCH (09:00)
[2025-04-26] MEDS ORDERED: METOPROLOL TARTRATE 25 MG TAB PO SCH (09:00)
[2025-04-26] MEDS ORDERED: NICOTINE 7 MG/24 HR 1 EA TDSY TD SCH (09:00)
--- NOTE | 2025-04-26 09:38 | NUR ---
PATIENT IS IN HER BED AT THIS TIME, INTERNET DATABASE SPECIALIST CHANGED HER BREIF, ASSISTED IN EATTING A LITTLE BREAKFAST, ASSISTED PATIENT IN DRINKING SOME COFFEE, MILK AND WATER, AND WILL COME IN PERIODICALLY TO HAVE HER DRINK MORE. SHE ONE ATE ABOUT 10% SAID SHE WAS FULL AND DIDNT WANT ANYMORE. WE ASKED 3 DIFFERENT TIMES, FOR THAT AND TO SIT UP WHICH SHE REFUSED. CALL LIGHT WITH IN REACH AND NOTHING ELSE NEEDED AT THIS TIME.
--- NOTE | 2025-04-26 10:15 | NUR ---
MORNING ASSESSMENT COMPLETE. PT IS AWAKE IN BED, AGITATED ABOUT BEING IN THE HOSPITAL. DENIES PAIN OR DISCOMFORT. PT IS CONFUSED ON WHY SHE IS IN THE HOSPITAL. DISCUSSED POC AND PT WAS NOT INTERESTED. KELY REQUESTED A GERIATRIC DEPRESSION SCREENING DONE, RESULTED IN POSITIVE MD AWARE. PT IS NONCOMPLIANT WITH CARE AND WANTS TO LEAVE THE HOSPITAL BY CRAWLING OUT THE WINDOW.
[2025-04-26] MEDS ORDERED: TYLENOL EXTRA500 MG PO (10:31)
--- NOTE | 2025-04-26 10:32 | NUR ---
MED REC COMPLETE
--- NOTE | 2025-04-26 11:05 | NUR ---
VISITED DURING SPIRITUAL CARE ROUNDS. PT APPEARED TO BE SLEEPING. DID NOT DISTURB. PROVIDED PRAYER.
--- NOTE | 2025-04-26 11:09 | NUR ---
UR CLINICAL REVIEW: 2 MN FOR VERSALUS-PER DASHBOARD DEVELOPER MEETS INPT FOR UTI WITH NEED FOR IV ABX AND FLUIDS MEDICARE INPT 04/25/25 @ 2778 ORDER MATCHES REG NO AUTH REQUIRED PER MEDICARE GUIDELINES DISCHARGE DISPO PENDING FURTHER CASE MANAGEMENT/PT
--- NOTE | 2025-04-26 11:20 | NUR ---
PT RESTING IN BED, EYES CLOSED, BREATHING EVEN AND UNLABORED. CALL LIGTH IN REACH
--- NOTE | 2025-04-26 11:30 | NUR ---
PT RESTING IN BED, DENIES NEEDS. CALL LIGHT IN REACH
--- NOTE | 2025-04-26 11:30 | NUR ---
Spoke with Rhina. She is her usual self. Pt yelling, "I want to go the F home". Pt cont. to live alone in an apartment with her 3 dogs. She has a CG who works with her 5 times per week. Pt uses a wc or is bedbound per the cg. I attempted to speak with Rhina about a SNF as this is what PT is recommending. Pt declines and plans on dc to home. She is very concerned about her dogs and wants to leave as soon as possible. Pt denies financial or safety issues. I will email her cw from [facility] as it is concerning pt is bedbound and cg hours are 5 hrs per day.
[2025-04-26] MEDS ORDERED: PHARMACY RENAL DOSE ADJUSTMENT 1 DOSE MISC PO SCH (12:00)
--- NOTE | 2025-04-26 12:20 | NUR ---
SPOKE WITH NICOLA (CAREGIVER) AND PERSONAL CONTACT. PATIENT LIVES IN A HOUSE ALONE. USES A WHEELCHAIR BUT HAS BEEN BEDBOUND FOR DAYS NOW. CAREGIVER STATES SHE HAS BEEN DOING ALL HER CARES IN THE BED. DOES NOT HAVE OXYGEN OR A CPAP. ALSO SHE HAS BEEN REFUSING TO SEE ANY DOCTORS. LAST VISIT WE SET HER UP WITH A DIFFERENT PCP AND PATIENT DID NOT WANT TO GO TO THE APPOINTMENT. PATIENT CAREGIVER HAS HOURS EVERYDAY FROM 11-3 AND HAS ASKED FOR MORE THROUGH THE STATE AND THEY HAVE DENIED. [facility] PROGRAMMER ANALYST IS MADELYN.
--- NOTE | 2025-04-26 12:50 | NUR ---
PT IS SLEEPING IN BED, BREATHING EVEN AND UNLABORED. CALL LIGHT IN REACH. BED ALARM ON FOR SAFETY.
--- NOTE | 2025-04-26 14:49 | NUR ---
PATIENT IS IN BED AT THIS TIME, NICOLE PEREIRA AND I CHANGED PATIENTS BEDDING AND GOWN, NEW BREIF, AND FRANCHESKA PAD. I FED PATIENT, SHE ONLY ATE 25% THEN REFUSED. NICOLE CHARTED VITALS AND I&O'S, 3 WARM BLANKETS, CALL LIGHT WITH IN REACH AND NOTHING ELSE NEEDED AT THIS TIME.
--- NOTE | 2025-04-26 15:40 | NUR ---
PT RESTING IN BED, EYES CLOSED, BREATHING EVEN AND UNLABORED. CALL LIGHT IN REACH
[2025-04-26] MEDS ORDERED: ATORVASTATIN 40 MG TAB PO SCH (17:00)
--- NOTE | 2025-04-26 17:44 | NUR ---
PT IS AWAKE IN BED, CONFUSED ON WHY SHE IS HERE IN THE HOSPITAL. REORIENTED PT TO PLACE AND SITUATION. PT REMAINS CONFUSED. CALL LIGHT IN REACH. BED ALARM ON FOR PT SAFETY.
--- NOTE | 2025-04-26 18:30 | NUR ---
PATIENT IS IN BED AT THIS TIME, LOAD TALLIER CHARTED VITALS AND I&O'S, ASSISTED IN FEEDING PATIENT, SHE ATE ONLY 10% THEN SAID SHE FEELS SICK TO HER STOMACH, RN CJ NOTIFIED. I CHANGED HER BREIF, CALL LIGHT WITH IN REACH AND NOTHING ELSE NEEDED AT THIS TIME.
--- NOTE | 2025-04-26 19:31 | NUR ---
RECEIVED REPORT. PT IN BED WITH EYES CLOSED, RISE AND FALL OF CHEST OBSERVED, BED ALARM ACTIVE. [facility]
[2025-04-26] MEDS ORDERED: MIRTAZAPINE 15 MG TAB PO SCH (21:00)
--- NOTE | 2025-04-26 22:00 | NUR ---
VITALS, ASSESSMENT, EVENING MEDS. PT VOIDED TO BRIEF, CHANGED BRIEF AND CHUX. APPLIED BARRIER CREAM TO SACRUM AND BUTTOCKS AND SUPPORTED WITH PILLOWS OFF OF COCCYX. PT PLEASANT, THOUGH VOICES SHE WOULD "JUST LIKE TO GO BACK TO SLEEP ALREADY. GIVEN WARM BLANKETS, NO OTHER NEEDS FOR NOW.
[2025-04-27] VITALS (9 sets, daily range): BP systolic 102–160; BP diastolic 55–89
--- NOTE | 2025-04-27 00:25 | NUR ---
PT RESTING IN BED WITH EYES CLOSED, RISE AND FALL OF CHEST OBSERVED. [facility]
--- NOTE | 2025-04-27 01:46 | NUR ---
RESPONDED TO PT CALLING OUT. VOIDED TO BRIEF, CHANGED BRIEF AND CHUX. REPOSITIONED PT WITH PILLOWS AND WARM BLANKETS. NO OTHER NEEDS, CALL LIGHT INREACH
--- NOTE | 2025-04-27 03:40 | NUR ---
PT RESTING IN BED WITH EYES CLOSED, RR EVEN AND UNLABORED. CALL LIGHT IN REACH, BED ALARM ACTIVE, FALL MATTS IN PLACE
--- NOTE | 2025-04-27 05:10 | NUR ---
RESPONDED TO PT CALLING OUT. NO NEEDS IDENTIFIED. VITALS TAKEN, BRIEF DRY. REPOSITIONED PT. NO OTHER NEEDS, CALL LIGHT INREACH, BED ALARM ACTIVE
[2025-04-27 05:40] LABS: BASOPHILS 0.3 % (0.1-1.2); EOSINOPHILS 0.2 % (0.7-5.8); LYMPHOCYTES 6.7 % (19.3-51.7); MCH 31.4 PG (25.6-32.2); MCHC 33.8 g/dL (32.2-35.5); MCV 92.7 fL (79.4-94.8); MONOCYTES 11.7 % (4.7-12.5); NEUTROPHILS 80.1 % (34.0-71.1); RBC 3.03 M/uL (3.93-5.22)
[2025-04-27 05:56] LABS: GLOMERULAR FILTRATION RATE,EST 20.0 mL/min (>60); UREA NITROGEN 54.0 mg/dL (7-18)
--- NOTE | 2025-04-27 06:45 | NUR ---
RESPONDED TO PT CALLING OUT FOR GLASS OF WATER. PROVIDED SIPS OF COLD WATER. CHANGED BRIEF AND PROVIDED FERNANDO CARE WITH RN X2. CALL LIGHT IN REACH, BED ALARM ACTIVE
--- NOTE | 2025-04-27 07:23 | NUR ---
RECIEVED SHIFT REPORT. PT IS REMOVING GOWN, SUMIT JUAN ASSISTED TO PLACE GOWN BACK ON. PT IS AGITATED, NOT COOPERATING. REASURRING PT OF LOCATION AND SITUATION. CALL LIGHT IN REACH. SZ PRECAUTIONS IN PLACE. BED ALARM ON FOR PT SAFETY.
--- NOTE | 2025-04-27 08:59 | NUR ---
MORNING ASSESSMENT COMPLETE. NO CHANGES WITH PT. PT REMAINS AGGITATED, UNWARE OF SURROUNDINGS OR EVENT. ATTEMPTED TO REORIENT PT. NO NEEDS AT THIS TIME. CALL LIGHT IN REACH. BED ALARM ON FOR PT SAFETY.
--- NOTE | 2025-04-27 09:15 | NUR ---
pt awake in bed, resting comfortably. call light in reach. be alarm on for safety.
--- NOTE | 2025-04-27 10:02 | NUR ---
PATIENT WAS IN HER BED AT THIS TIME, UROLOGIST MD ASSISTED PATIENT WITH BREAKFAST, AND CLEANED HER UP A BIT, AND HELPED RN WHILE SHE GAVE MEDS. CALL LIGHT WITH IN REACH AND NOTHING ELSE NEEDED AT THIS TIME.
--- NOTE | 2025-04-27 10:21 | NUR ---
PT IN BED, HEAD OF BED UP AT ABOUT 45% ANGLE. PT REQUESTED WARM BLANKET AND I GOT HER FRESH ICE WATER. PT IN AND OUT OF SLEEP, STILL REPORTING "NOT FEELING WELL". NO VISITORS IN ROOM AND TV OFF. CALL LIGHT WITHIN REACH.
--- NOTE | 2025-04-27 11:46 | NUR ---
pt awake in bed, resting comfortably. call light in reach. be alarm on for safety.
--- NOTE | 2025-04-27 13:36 | NUR ---
PT RESTING IN BED, HEAD UP, BED AT A 45 DEGREE ANGLE. PT SAID "LEAVE ME ALONE" WHEN I ASKED ABOUT TAKING HER VITALS, SHE LET ME BUT SAID "LEAVE ME ALONE, BITCH" WHEN TAKING OFF THE BP CUFF. I GOT PT FRESH ICE WATER, NEXT TO HER BED, AND MADE SURE THE CALL LIGHT WAS ALSO WITHIN REACH. PT REFUSED ANY OTHER CARE AT THIS TIME.
--- NOTE | 2025-04-27 13:40 | NUR ---
ATTEMPTED A LINEN, FERNANDO CARE ASSIST, BUT THE PT STATED ANGRILY "LEAVE ME ALONE" THREE TIMES. GOT PT FRESH ICE WATER AND A WARM BLANKET.
--- NOTE | 2025-04-27 13:46 | NUR ---
pt awake in bed, resting comfortably. call light in reach. be alarm on for pt safety.
--- NOTE | 2025-04-27 13:47 | NUR ---
pt is resting in bed, eyes closed, breathing even and unlabored. call light in reach. bed alarm on for pt safety
[2025-04-27 14:44] LABS: URINE OSMOLALITY 438 mOsm/kg (50-800)
[2025-04-27 14:44] LABS: OSMOLALITY 284 mOsm/kg (280-303)
--- NOTE | 2025-04-27 15:20 | NUR ---
PT IS RESTING COMFORTABLY IN BED, EYES CLOSED, BREATHING EVEN AND UNLABORED. BED ALARM ON, CALL LIGHT IN REACH
--- NOTE | 2025-04-27 16:00 | NUR ---
PT IS RESTING IN BED, DENIES NEEDS. CALL LIGHT IN REACH. BED ALARM ON FOR PT SAFETY.
--- NOTE | 2025-04-27 16:20 | NUR ---
PT CLEANED, GOWN AND FRESH LINEN CHANGED. DRESSING APPLIED TO COCCYX FOR SUPPORT. COCCYX BLANCHABLE, RED. WARM BLANKETS PROVIDED SEIZURE PADS APPLIED.
--- NOTE | 2025-04-27 16:37 | NUR ---
2 RN'S AND 2 LEAD TRAINER'S CHANGED PT AND LINENS, PT WAS WET. PT HAS BEEN SLEEPING ALL DAY, THIS LEAD TRAINER ATTEMPTED TO CHANGE LINENS EARLIER BUT PT REFUSED, AT APPROXIMATELY 1300 PT WAS DRY, AND HAD NOT EATEN ANY LUNCH. CALL LIGHT WITHIN REACH, PT COVERED WITH WARM BLANKETS, STILL VERY SLEEPY. RN CHECKED TEMPERATURE.
--- NOTE | 2025-04-27 16:57 | NUR ---
PATIENT WAS IN BED AT THIS TIME, SUMIT APPIAH ASKED IF I WOULD ASSIST IN CHANGING THE PATIENT. SUMIT PROCTOR CAME IN TO BE A 2ND FOR A SKIN ASSESMENT OF PATIENTS BOTTOM. WE STARTED CHANGING AND CLEANING UP PATIENT, THEN NICOLE ETIENNE CAME IN TO HELP. WE CHANGED ALL OF THE PATIENTS LINENS, WIPED DOWN THE BED AND WAFFLE MATTRESS, CHANGED HER BREIF, FRANCHESKA PAD, GOWN, AND WIPED DOWN PATIENT. WE PROVIDED WARM BLANKETS AND A FEW SIPS OF WATER. CALL LIGHT WITH IN REACH AND NOTHING ELSE NEEDED AT THIS TIME.
--- NOTE | 2025-04-27 17:42 | NUR ---
ATTEMPTED TO HELP PT EAT SOME DINNER. SUGGESTED CHICKEN BROTH, SHE HAD SOME WHEN SHE WENT THROUGH THE ER. CHECKED PT'S FERNANDO AREA, SHE WAS FOUND SOAKED EARLIER TODAY - FOLLOWING LUNCH. PT GOT ANGRY, BUT I CHECKED - FEELING HORRIBLE ABOUT HER BEING SOAKED EARLIER. MOVED CALL LIGHT SO PT COULD REACH - GOT FRESH ICE WATER - AND A JUICE - HOPING ONE MIGHT SOUND GOOD TO PT. CURTAIN OPEN ANDS FALL MATTS IN PLACE FOR SAFETY MEASURES.
--- NOTE | 2025-04-27 17:45 | NUR ---
PT IS AWAKE IN BED, VERY SLEEPY THIS EVENING. CALL LIGHT IN REACH. BED ALARM FOR PT SAFETY.
--- NOTE | 2025-04-27 17:46 | NUR ---
PT DID NOT LIKE ME GETTING VITALS, I EXPLAINED WHY THEY WERE NECESSARY. MOVED CALL LIGHT AND PLACED ON PT'S CHEST. TV ON BUT VOLUME OFF. LIGHTS DOWN AND BLIND OPEN. CURTAIN OPEN AND FALL MATS IN PLACE FOR SAFETY REASONS. PT NOT RESPONDING TO SIMPLE REQUESTS OR COMMANDS. ATTEMPTED TO TAKE TEMP BY ORAL MANNER, PT REFUSED TO OPEN MOUTH. PT HAS BEEN SLEEPING All day.
--- NOTE | 2025-04-27 17:58 | NUR ---
I FINALLY GOT PT TO DRINK - SHE TOOK IN 100 ML OF WATER - SHE HAS HAD NOTHING TO DRINK ALL DAY BY MOUTH. PT STILL VERY TIRED - ALSO GOT PT WARM BLANKET. CALL LIGHT ON LAP, FALL MATS DOWN AND SEIZURE PADS ON BED. CHECKED PT AGAIN FOR URINATION - PT WAS DRY.
--- NOTE | 2025-04-27 18:00 | NUR ---
PT FINALLY DRAnk SOME WATER FOR THIS PIE CRIMPING MACHINE OPERATOR - PT REQUESTED WARM BLANKET, GOT IT. CALL LIGHT ON LAP, FALL MATS ON FLOOR AND SEIZURE PADS ON BED, SIDE RAILS UP - ALL FOR SAFETY.
--- NOTE | 2025-04-27 18:49 | NUR ---
PT IS RESTING IN BED AT THIS TIME. EYES CLOSED BREATHING EVEN AND UNLABORED. CALL LIGHT IN REACH. BED ALARM ON FOR PT SAFETY.
--- NOTE | 2025-04-27 19:39 | NUR ---
RECIEVED REPORT. PT RESTING IN BED WITH EYES CLOSED, RISE AND FALL OF CHEST OBSERVED. CALL LIGHT
[2025-04-27] MEDS ORDERED: POLYETHYLENE GLYCOL 3350 1 PACKET PO SCH (21:00)
[2025-04-27] MEDS ORDERED: SENNOSIDES/DOCUSATE 1 EA TAB PO SCH (21:00)
--- NOTE | 2025-04-27 21:37 | NUR ---
PT ALERT, PULLING AT BEDSHEETS. WITH ELECTRIC BLANKET PACKER, CHANGED PT BRIEF AND CHUX AFTER VOID. GIVEN GLASS OF MILK ON REQUEST. ALSO GIVEN PRN TYLENOL D/T C/O PAIN "ALL OVER". CHANGED IV FLUIDS. NO OTHER NEEDS, CALL LIGHT INREACH BED ALARM ACTIVE
--- NOTE | 2025-04-27 22:07 | NUR ---
PATIENT WAS LYING IN BED UPON ENTRY. NICOLE NGUYEN ASSISTED RN DRAKE IN COLLECTING VITAL SIGNS AND I&O'S. WE BOTH STARTED A BRIEF CHANGE BUT DRAKE HAD TO LEAVE TO ASSIST ANOTHER PATIENT. NICOLE NGUYEN FINISHED THE BRIEF CHANGE AND ROTATED CORIN. NICOLE NGUYEN DID NOT CHART VITALS, ONLY ASSISTED IN COLLECTING THEM. RN DRAKE WILL HAVE TO FINISH AND SAVE ON HER CHARTING. PATIENT HAD NO FURTHER NEEDS ONCE THE BRIEF CHANGE WAS OVER AND CALL LIGHT WAS WITHIN REACH.
--- NOTE | 2025-04-27 22:07 | NUR ---
VITALS, ASSESSMENT. WITH HELP OF GLASSWARE DEFECT REPAIRER, BEGAN TO CLEAN AND TURN PT. UNABLE TO GIVE MEDS D/T REQUESTING PRESENCE WITH OTHER PT. NICOLE NGUYEN KINDLY FINISHED SETTLING PT.
--- NOTE | 2025-04-27 23:16 | NUR ---
GIVEN PM MEDICATIONS. GIVEN LATE D/T EARLIER PULLED OUT OF ROOM BY . NO OTHER NEEDS, CALL LIGHT IN REACH
[2025-04-28] VITALS (10 sets, daily range): BP systolic 120–177; BP diastolic 55–76
--- NOTE | 2025-04-28 01:10 | NUR ---
PT RESTING IN BED WITH EYES CLOSED, RR EVEN AND UNLABORED. CALL LIGHT IN REACH, BED ALARM ACTIVE
--- NOTE | 2025-04-28 02:50 | NUR ---
Changed Pt's brief and bed pad with RN assistance. No other needs expressed by Pt. Call light left in reach. Bed alarm on.
--- NOTE | 2025-04-28 03:49 | NUR ---
PT RESTING IN BED WITH EYES CLOSED, RISE AND FALL OF CHEST OBSERVED. CALL LIGHT IN REACH
[2025-04-28 05:13] LABS: BASOPHILS 0.6 % (0.1-1.2); EOSINOPHILS 0.6 % (0.7-5.8); LYMPHOCYTES 11.1 % (19.3-51.7); MCH 30.5 PG (25.6-32.2); MCHC 32.4 g/dL (32.2-35.5); MCV 94.1 fL (79.4-94.8); MONOCYTES 11.4 % (4.7-12.5); NEUTROPHILS 75.0 % (34.0-71.1); RBC 2.69 M/uL (3.93-5.22)
[2025-04-28 05:24] LABS: GLOMERULAR FILTRATION RATE,EST 24.0 mL/min (>60); UREA NITROGEN 41.0 mg/dL (7-18)
--- NOTE | 2025-04-28 06:43 | NUR ---
VOIDED X1 TO BRIEF. CHANGED BRIEF AND CHUX WITH RN AND VOICE TEACHER. NO NEEDS, CALL LIGHT IN REACH
--- NOTE | 2025-04-28 07:28 | NUR ---
RECEIVED REPORT FROM SUMIT JUAN. PATIENT RESTING IN BED, RESPERATIONS EVEN AND UNLABORED. FALL PRECAUTION IN PLACE, BED ALARM ON. CALL LIGHT IN REACH.
--- NOTE | 2025-04-28 08:16 | NUR ---
PATIENT RESTING IN BED EYES OPEN. PATIENT BOOSTED UP IN BED. PATIENT EMOTIONAL THIS MORNING MISSING HER DOGS. FALL PRECAUTIONS IN PLACE FOR PATIENT SAFETY. CALL LIGHT IN REACH.
--- NOTE | 2025-04-28 09:30 | NUR ---
PT IS ALERT, WILLING TO COOPERATE WITH CARES WHEN DISCUSSING INTERVENTIONS. PT GIVEN CRANBERRY JUICE, AND BLACK COFFEE. BOOSTED IN BED, AND EATING BREAKFAST WITH MINIMAL ASSISTANCE. FALL PRECAUTIONS IN PLACE. CALL LIGHT IN REACH.
--- NOTE | 2025-04-28 10:35 | NUR ---
PT IS RESTING IN BED, EYES CLOSED, BREATHING EVEN AND UNLABORED. CALL LIGHT IN REACH.
--- NOTE | 2025-04-28 11:31 | NUR ---
PTS ATTENDS CHANGED AND TURNED TO LEFT SIDE.
--- NOTE | 2025-04-28 12:58 | NUR ---
PT ASLEEP, WOKEN UP FOR LUNCH. ELEVATED HOB. COFFEE PROVIDED. PT IS FEEDING SELF. CALL LIGHT IN REACH.
--- NOTE | 2025-04-28 14:31 | NUR ---
PATIENT IS LAYING IN BED. VITAL SIGNS AND I&OS WERE DONE. PATIENT REFUSED TO BE CHANGED OR HAVE A BEDBATH. PATIENTS CALL LIGHT IS WITHIN REACH AND NO FURTHER NEEDS AT THIS TIME.
--- NOTE | 2025-04-28 15:00 | NUR ---
PATIENT HAD A BOWEL MOVEMENT. FERNANDO CARE PERFROMED, BRIEF CHANGE, AND NEW FRANCHESKA PAD APPLIED. REPOSITIONED IN BED. COFFEE GIVE PER PATIENT REQUEST. FALL PER CAUTIONS IN PLACE FOR PATIENT SAFETY. NO FURTHER REQUESTS AT THIS TIME. CALL LIGHT WITH IN REACH.
--- NOTE | 2025-04-28 17:22 | NUR ---
SET PT UP FOR DINNER, PT POLITE AND COOPERATIVE. DENIES NEEDS AT THIS TIME. CALL LIGHT IN REACH.
--- NOTE | 2025-04-28 18:35 | NUR ---
PATIENT IN BED WATCHING TV AT THIS TIME. VITALS AND I&O'S DONE AND CHARTED. FERNANDO CARE DONE. NEW ATTENDS IN PLACE. WARM BLANKETS GIVEN. FRESH WATER GIVEN. CALL LIGHT IN REACH. BED ALARM ON. NO FURTHER NEEDS AT THIS TIME.
--- NOTE | 2025-04-28 19:30 | NUR ---
REPORT RECEIVED FROM DAY SHIFT RN. PT LYING IN BED RESTING WITH EYES CLOSED. RESPIRATIONS EVEN. WHITE BOARD UPDATED. CALL LIGHT IN REACH.
--- NOTE | 2025-04-28 22:09 | NUR ---
EVENING ASSESSMENT COMPLETE. SCHEDULED MEDS ADMIN PER EMAR. PT REPORTS 04/07 "ALL OVER" PAIN. PRN FOR PAIN ADMIN PER EMAR. NEW BAG IVF INFUSING WNL. PT ALERT AND ORIENTED TO SELF. ASSISTED TO REPOSITION FOR COMFORT. PT DENIES QUESTIONS OR CONCERNS. CALL LIGHT IN REACH. BED ALARM FOR SAFETY.
[2025-04-29] VITALS (9 sets, daily range): BP systolic 134–169; BP diastolic 60–91
--- NOTE | 2025-04-29 00:10 | NUR ---
PT RESTING IN BED WITH EYES CLOSED. RESPIRATIONS EVEN. CALL LIGHT IN REACH.
--- NOTE | 2025-04-29 02:17 | NUR ---
BED ALARM SOUNDING. PT MOVING TOWARDS EDGE OF BED. INCONTINENT OF LARGE AMOUNT OF URINE. FERNANDO CARE DONE. NEW ATTENDS IN PLACE. PT COOPERATIVE AND ABLE TO ASSIST WITH CARES. 2PA TO REPOSITION IN BED. WARM BLANKET PROVIDED. NO FURTHER NEEDS. CALL LIGHT IN REACH.
--- NOTE | 2025-04-29 03:22 | NUR ---
PT RESTING IN BED WITH EYES CLOSED. RESPIRATIONS EVEN. BED ALARM FOR SAFETY. CALL LIGHT IN REACH.
--- NOTE | 2025-04-29 03:44 | NUR ---
CALL LIGHT ANSWERED. PT REQUESTING COFFEE AND SNACK. CHEESE STICK, CRACKERS, AND COFFEE PROVIDED.
--- NOTE | 2025-04-29 05:30 | NUR ---
LAB IN FOR MORNING DRAW. VS AND I&O OBTAINED. NEW ATTENDS IN PLACE AFTER FERNANDO CARE. WARM BLANKET PROVIDED. 2PA TO REPOSITION IN BED. CALL LIGHT IN REACH. BED ALARM FOR SAFETY.
[2025-04-29 05:39] LABS: GLOMERULAR FILTRATION RATE,EST 29.0 mL/min (>60); UREA NITROGEN 30.0 mg/dL (7-18)
--- NOTE | 2025-04-29 07:20 | NUR ---
RECIEVED SHIFT REPORT. PT IS RESTING IN BED, BREATHING EVEN AND UNLABORED. CALL LIGHT IN REACH
--- NOTE | 2025-04-29 08:30 | NUR ---
THIS RETAIL SALES CONSULTANT IN TO SET PATIENT UP FOR BREAKFAST. PATIENT REFUSED TO GET UP TO CHAIR AT THIS TIME, SET UP IN BED. CALL LIGHT IN REACH. BED ALARM ON. NO FURTHER NEEDS AT THIS TIME.
--- NOTE | 2025-04-29 08:45 | NUR ---
PATIENT CALLED TO GO TO THE BATHROOM. THIS DENTAL AMALGAM PROCESSOR IN TO ASSIST NICOLE ALEMAN. PATIENT UP TO [facility] 2PA PIVOT TRANSFER. PATIENT VOIDED WHITE MILKY LOOKING URINE, RN NOTIFIED. FERNANDO CARE DONE. LINENS CHANGED. NEW ATTENDS IN PLACE. PATIENT BACK TO BED, 2PA PIVOT. WARM BLANKETS GIVEN. BED ALARM ON. CALL LIGHT IN REACH. NO FURTHER NEEDS AT THIS TIME.
--- NOTE | 2025-04-29 08:46 | NUR ---
HOURLY ROUNDING. PATIENT IS NOW IN BED. ASSIST TO BATHROOM PATIENT URINE WAS WHITE CREAM COLOR, NURSE HAS BEEN NOTIFIED AND URINE HAS BEENLEFT IN THE HAT FOR NURSE TO SEE. LINENS HAVE BEEN CHANGED. NO FURTHER REQUEST FROMPATIENT AT THIS TIME
--- NOTE | 2025-04-29 09:20 | NUR ---
PT ASLEEP, CALL LIGHT IN REACH. BREATHING EVEN AND UNLABORED.
--- NOTE | 2025-04-29 11:08 | NUR ---
PT RESTING IN BED, EYES CLOSED. BREATHING EVEN AND UNLABORED. CALL LIGHT IN REACH
--- NOTE | 2025-04-29 12:37 | NUR ---
PT IS EATING LUNCH, DENIES NEEDS AT THIS TIME. CALL LIGHT IN REACH.
--- NOTE | 2025-04-29 14:20 | NUR ---
PT ASLEEP IN BED, BREATHING EVEN AND UNLABORED. CALL LIGHT IN REACH.
--- NOTE | 2025-04-29 16:26 | NUR ---
PT ASLEEP IN BED, BREATHING EVEN AND UNLABORED. CALL LIGHT IN REACH.
--- NOTE | 2025-04-29 16:35 | NUR ---
PT CHANGED BY WINDOW CASER's. PT IS TIRED THROUGH CARES. CALL LIGHT IN REACH. BED ALARM ON FOR PT SAFETY.
--- NOTE | 2025-04-29 16:41 | NUR ---
IN TO CHECK ON PATIENT AND CHECK FOR INCONTINENCE NO I&O'S HAD BEEN DOCUMENTED FOR 1400 TIME. PATIENT HAD INCONT. VOID. FERNANDO CARE AND SKIN CARE DONE. NEW CHUCKS AND GOWN PROVIDED. NICOLE MOCTEZUMA IN TO ASSIST WITH CHANGING PATIENT. NO INPUT AT THIS TIME. OUTPUT CHARTED. RN NOTIFIED. CALL LIGHT IN REACH. BED ALARM ON.
--- NOTE | 2025-04-29 16:54 | NUR ---
HOURLY ROUNDING.PATIENT IS SLEEPING, NOTHING TO REPORT, CALL LIGHT HAS BEEN PLACED WITHIN REACH
--- NOTE | 2025-04-29 17:58 | NUR ---
NEW BAG IVF HUNG AT THIS TIME. PT IS EATING DINNER. DENIES NEEDS. CALL LIGHT IN REACH
--- NOTE | 2025-04-29 18:26 | NUR ---
PATIENT CALLED TO USE BATHROOM, THIS MARBLEIZER AND RN IDA IN TO ASSIST. PATIENT TO BSC AND BACK TO BED, 2PA PIVOT TRANSFER. FERNANDO CARE DONE. NEW DRAW SHEET, DEPENDS, AND CHUCKS IN PLACE. PATIENT HAD MILKY LOOKING URINE, RN NOTIFIED. THIS MARBLEIZER DID VITALS, NICOLE ALEMAN CHARTED VITALS. BED ALARM IS ON. CALL LIGHT IN REACH. NO FURTHER NEEDS AT THIS TIME.
--- NOTE | 2025-04-29 18:28 | NUR ---
NURSE HAS BEEN NOTIFIED ON HIGH BLOOD PRESSURE. CALL LIGHT HAS BEEN PLACED WITHIN REACH
--- NOTE | 2025-04-29 18:55 | NUR ---
ALLEN CALLED REGARDING PT URINE BEING CLOUDY, VERBAL ORDER TO COLLECT URINE. STRAIGHT CATH. ST CATH PERFORMED BY SUMIT SAMUEL. THIS RN AND NICOLE PORTER IN ROOM TO ASSIST. PT TOLERATED WELL.
[2025-04-29 18:59] LABS: BLOOD/HGB, URINE MODERATE (Negative); KETONE, URINE NEGATIVE (Negative); LEUK ESTERASE, URINE LARGE (negative); NITRITE, URINE NEGATIVE (negative)
[2025-04-29 19:06] LABS: BACTERIA, URINE 1+ /hpf (negative); CASTS, URINE NONE SEEN \\lpf; CRYSTALS, URINE NONE SEEN (0-1+); EPITHELIAL CELLS, URINE NONE SEEN /lpf (0-1+); REFLEX CULTURE, URINE Yes (No)
--- NOTE | 2025-04-29 19:35 | NUR ---
REPORT RECEIVED FROM DAY SHIFT RN. PT LYING IN BED RESTING WITH EYES CLOSED. RESPIRATIONS EVEN. WHITE BOARD UPDATED. CALL LIGHT IN REACH. BED ALARM FOR SAFETY.
--- NOTE | 2025-04-29 21:52 | NUR ---
PT DROWSY. RESPONDS TO VERBAL STIMULI. EVENING ASSESSMENT COMPLETE. SCHEDULED MEDS ADMIN PER EMAR. NO C/O PAIN OR NAUSEA. IVF INFUSING PER ORDER. PT INCONTINENT OF LARGE AMOUNT OF URINE. FERNANDO CARE DONE. NEW ATTENDS AND PUREWICK PLACED. 2PA TO REPOSITION IN BED. WARM BLANKET PROVIDED. BED ALARM IN PLACE. CALL LIGHT IN REACH.
--- NOTE | 2025-04-30 00:09 | NUR ---
PT AWAKE IN BED. 2PA TO REPOSITION WITH PILLOWS. SIPS OF WATER PROVIDED. [employer] PATENT WITH CLOUDY YELLOW URINE. NO FURTHER NEEDS. CALL LIGHT IN REACH.
--- NOTE | 2025-04-30 02:24 | NUR ---
PT REPOSITIONED IN BED WITH PILLOWS. DENIES NEEDS. CALL LIGHT IN REACH. BED ALARM IN PLACE.
[2025-04-30 06:08] VITALS: BP 183/73
[2025-04-30 06:13] VITALS: BP 183/73
--- NOTE | 2025-04-30 06:16 | NUR ---
VS AND I&O OBTAINED. 2PA TO REPOSITION IN BED. NEW BAG IVF INFUSING PER ORDER. WARM BLANKETS PROVIDED. NO FURTHER NEEDS. BED ALARM IN PLACE. CALL LIGHT IN REACH.
--- NOTE | 2025-04-30 06:33 | NUR ---
UPDATE PROVIDED TO MD REGARDING ELEVATED BP. VERBAL ORDERS RECEIVED VERIFIED WITH READBACK METHOD TO RESTART HOME BP MED.
--- NOTE | 2025-04-30 07:52 | NUR ---
RECIEVED SHIFT REPORT. PT IS RESTING IN BED, EYES CLOSED BREATHING EVEN AND UNLABORED. CALL LIGHT IN REACH.
--- NOTE | 2025-04-30 08:36 | NUR ---
CHECKED PT'S PUREWICK, EMPTIED THE CONTAINER, AND CHECKED UNDER PT FOR ANY WETNESS OR BM. PT WAS DRY AND THE PUREWICK SEEMS TO BE WORKING AT THIS TIME. PUT PT'S HEAD UP AND HELPED HER POSITION TO EAT BREAKFAST. PT SAID TWICE "LEAVE ME ALONE", BUT ALLOWED ME TO HELP HER WITH PICKING UP UTENSILS AND GIVING HER THE [place]. ROOM WAS TIDIED AND WHITE BOARD WAS CHANGED. CALL LIGHT ON PT'S RIGHT SIDE WITHIN REACH.
--- NOTE | 2025-04-30 09:09 | NUR ---
ALERT AND ORIENTED IN BED, FEEDING SELF BREAKFAST. DISCUSSED SNF WITH PATIENT. STATES SHE IS NOW WORRIED ABOUT GOING HOME AFTER SHE HAD A BAD DREAM ABOUT GETTING HOME AND NOT BEING ABLE TO WALK. PATIENT STATES SHE IS UNSURE IF SHE WANTS TO GO HOME. DISCUSSED SNF. DOES NOT ANSWER WHEN ASKED IF SHE IS WILLING TO GO. WILL RETURN TO SPEAK WITH PATIENT AFTER SHE IS DONE EATING.
--- NOTE | 2025-04-30 09:20 | NUR ---
MORNING ASSESSMENT COMPLETE. PT IS ALERT, MORE ORIENTED TODAY WITH LOCATION AND SURROUNDINGS. DENIES DISCOMFORT. CALL LIGHT IN REACH. SZ PRECAUTIONS IN PLACE. FALL PRECAUTIONS IN PLACE.
--- NOTE | 2025-04-30 10:15 | NUR ---
PT IN BED, OT IN ROOM REFUSING OT. THIS RN DISCUSSES THE IMPORTANCE OF WORKING WITH OT AND THE BENEFITS TO GO HOME AND CARING FOR SELF. PT IS COMPLIANT WITH SOME TASKS OT OFFERED. PT BECAME AGITATED. OT AGREED THEY COULD BE FINISHED. PT LAID BACK IN BED, CALL LIGHT IN REACH. DENIES NEEDS. BED ALARM FOR PT SAFETY.
[2025-04-30 10:28] VITALS: BP 157/77
--- NOTE | 2025-04-30 11:54 | NUR ---
PATIENT ALERT IN BED. FORGETFUL AT TIMES DURING CONVERSATION. DISCUSSED SNF PLACEMENT. ADAMANTLY REFUSES SNF AT THIS TIME. ALSO REFUSES HOME HEALTH WHEN OFFERED. STATES SHE IS NOT AN "EXERCISE PERSON" AND SHE DOES NOT FEEL SHE WANTS TO HAVE HOME HEALTH. DR. VILLA NOTIFIED.
[2025-04-30] MEDS ORDERED: AMOXICILLIN/CLAVULANATE K 500 MG TAB PO SCH (12:00)
--- NOTE | 2025-04-30 12:40 | NUR ---
PT RESTING IN BED, IRRITATED THAT STAFF IS WAKING HER UP WHEN SHE WANTS TO SLEEP. CALL LIGHT IN REACH
[2025-04-30] MEDS ORDERED: AMOX TR-K CLV1 EACH PO (13:31)
[2025-04-30 13:34] VITALS: BP 162/85
--- NOTE | 2025-04-30 13:40 | NUR ---
PT SLEEPING IN BED WITH HEAD AT ABOUT A 30 DEGREE ANGLE. PT STATED "I GUESS I'M GOING HOME TOMORROW." PT THEN TOLD ME TO "SHUT UP AND TAKE THE VITALS AND LEAVE ME ALONE." I CHECKED PT'S DIAPER, SHE IS WEARING A PUREWICK AND IT IS WORKING, BUT I WAS CHECKING FOR A BM OR ANY LEAKING. WHEN I CHECKED HER SHE SAID "LEAVE ME ALONE." i still checked her, she is not wet, neither the diaper nor the randy pad under her, and the pt stated she did not have a bm, and i could not see or smell any bm at this time. PT WILL BE CHECKED THROUGHOUT THIS SHIFT. CALL LIGHT WITHIN REACH OF PT, AND FRESH ICE WATER ALSO WITHIN REACH.
--- NOTE | 2025-04-30 13:48 | NUR ---
CALLED FRANCES, CAREGIVER, AND NOTIFIED HER PATIENT WILL BE DISCHARGED THIS AFTERNOON. STATES SHE IS UNABLE TO PICK PATIENT UP TODAY BUT SHE IS REACHING OUT TO MADELYN, PATIENT'S FRIEND, TO SEE IF SHE CAN PICK HER UP AND TAKE HER HOME.
--- NOTE | 2025-04-30 14:20 | NUR ---
PT ASLEEP IN BED, BREATHING EVEN AND UNLABORED. CALL LIGHT IN REACH.
--- NOTE | 2025-04-30 16:22 | NUR ---
NO TRANSPORTATION HAS ARRIVED TO TAKE PATIENT HOME. CALLED FRANCES AGAIN, STATES SHE SPOKE WITH MADELYN AND WAS TOLD HOSPITAL IS TAKING CARE OF TRANSPORTATION. NO WHEELCHAIR TRANSPORT AVAILABLE TODAY, CAREGIVER NOTIFIED. FRANCES STATES SHE WILL BE TO FACILITY SHORTLY TO TRANSPORT PATIENT HOME. STAFF NOTIFIED.
== END 2025-04-30 16:49 | disposition home or self-care (01) | DRG 683 ==
LOC: ED 13:14 → MS 17:25
PROVIDERS: Emergency Medicine; Internal Medicine; ADMIT Student in an Organized Health Care Education/Training Program; ATTEND Student in an Organized Health Care Education/Training Program
DX: N17.9 Acute kidney failure, unspecified (principal); E87.1 Hypo-osmolality and hyponatremia; N39.0 Urinary tract infection, site not specified; Z68.1 Body mass index [BMI] 19.9 or less, adult; F03.90 Unspecified dementia, unspecified severity, without behavioral disturbance, psychotic disturbance, mood disturbance, and anxiety; I25.2 Old myocardial infarction; M19.90 Unspecified osteoarthritis, unspecified site; I10 Essential (primary) hypertension; Z66 Do not resuscitate; I25.10 Atherosclerotic heart disease of native coronary artery without angina pectoris; G40.909 Epilepsy, unspecified, not intractable, without status epilepticus; E78.5 Hyperlipidemia, unspecified; R62.7 Adult failure to thrive; E87.5 Hyperkalemia; Z60.2 Problems related to living alone; Z79.01 Long term (current) use of anticoagulants; Z86.73 Personal history of transient ischemic attack (TIA), and cerebral infarction without residual deficits; Z90.89 Acquired absence of other organs; Z90.710 Acquired absence of both cervix and uterus; Z98.890 Other specified postprocedural states; Z79.899 Other long term (current) drug therapy; Z91.018 Allergy to other foods; Z88.8 Allergy status to other drugs, medicaments and biological substances
CPT/HCPCS: 36415; 51701; 80048; 80053; 81001; 82570; 83735; 83930; 83935; 84100; 84300; 84443; 84484; 85025; 87088; 93005; 93010; 96365; 96366; 97166; 97535; 99285-25; A9270; J0696; J1644; J7030

== ENCOUNTER 2025-05-04 12:58 | Inpatient (IN) | payer MEDICARE, OTHER ==
[~2025-05-04] VITALS: Ht 162.6 cm; Wt 49.0 kg
[~2025-05-04 12:58] MED LIST changes: +AMOX TR-K CLV1 EACH PO; +TYLENOL EXTRA500 MG PO
--- OUTSIDE RECORDS SUMMARY | 2025-05-04 13:04 | XMS ---
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 Pressure Chamber Operator Events No recent Security Events currently on file CRITERIA MET - Group Notification - [facility] - 2 Visits in 30 Days CARE PROVIDERS -, [facility] Dentist: Overhead Cleaner Maintainer Current [place] PHONE: [phone] JESSICA YE Nurse Practitioner: Family Current PHONE: [phone] [facility]/Center: [facility] Current FAMILY PHONE: [phone] TIFFANY QUINONEZ Physician Gas Torch Solderer Florentin DELONG PHONE: [phone] DEONDRE LINARES Nurse Practitioner: Adult Health Florentin CLAIRE PHONE: [phone] Darryl HAMILTON Six Color Press Operator/Mill Operator Helper Current PHONE: [phone] ESTRELLA GARZA [facility] Current PHONE: Unknown [facility] has no Care Guidelines for this patient. Daniel VISIT COUNT (12 MO.) Curt Eugene TOTAL 3 NOTE: Visits indicate total known visits. ED/UCC VISIT TRACKING (12 MO.) 05/04/2025 12:58 [facility] TYPE: Emergency COMPLAINT: - FALL 04/25/2025 13:15 [facility] TYPE: Emergency COMPLAINT: - WEAKNESS 02/12/2025 13:00 [facility] TYPE: Emergency COMPLAINT: - URINE PROBLEM INPATIENT VISIT TRACKING (12 MO.) 04/25/2025 17:25 [facility] TYPE: Medical Surgical COMPLAINT: - UTI/FTT DIAGNOSES: - Acquired absence of both cervix [...] foods - Allergy to other foods - Atherosclerotic heart disease of [place] coronary artery without angina pectoris - Atherosclerotic heart disease of [place] coronary artery without angina pectoris - Body mass index [BMI] 19.9 or less, adult - Body mass index [BMI] 19.9 or less, adult - Do not resuscitate - Do not resuscitate - Epilepsy, unspecified, not intractable, without status epilepticus - Epilepsy, unspecified, not intractable, without status epilepticus - Essential (primary) hypertension - Essential (primary) hypertension - Hyperkalemia - Hyperkalemia - Hyperlipidemia, unspecified - Hyperlipidemia, unspecified - Hypo-osmolality and hyponatremia - Hypo-osmolality and hyponatremia - intermediate (current) use of anticoagulants - intermediate (current) use of anticoagulants - Old myocardial infarction - Old myocardial infarction - Other rn long term care (current) drug therapy - Other care home (current) drug therapy - Other specified postprocedural states - Other specified postprocedural states - Personal history of transient ischemic attack (TIA), and cerebral infarction without residual deficits - Personal history of transient ischemic attack (TIA), and cerebral infarction without residual deficits - Problems related to living alone - Problems related to living alone - Unspecified dementia, unspecified severity, without behavioral disturbance, psychotic disturbance, mood disturbance, and anxiety - Unspecified dementia, unspecified severity, without behavioral disturbance, psychotic disturbance, mood disturbance, and anxiety - Unspecified osteoarthritis, unspecified site - Unspecified osteoarthritis, unspecified site - Urinary tract infection, site not specified - Urinary tract infection, site not specified - Weakness 02/12/2025 14:[address] [facility] [...] other arteries - Atherosclerotic heart disease of [place] coronary artery without angina pectoris - Atherosclerotic heart disease of [place] coronary artery without angina pectoris - Bacteremia [...] the cause of diseases classified elsewhere - intermediate (current) use of non-steroidal anti-inflammatories (NSAID) - intermediate (current) use of non-steroidal anti-inflammatories (NSAID) - Nicotine dependence, cigarettes, uncomplicated - Nicotine dependence, cigarettes, uncomplicated - Old myocardial infarction - Old myocardial infarction - Other rn long term care (current) drug therapy - Other care home (current) drug therapy - Other malaise - [...] - Urinary tract infection, site not specified [email or web address]
[2025-05-04 14:46] LABS: BASOPHILS 0.2 % (0.1-1.2); EOSINOPHILS 0.1 % (0.7-5.8); LYMPHOCYTES 2.3 % (19.3-51.7); MCH 31.1 PG (25.6-32.2); MCHC 33.4 g/dL (32.2-35.5); MCV 93.0 fL (79.4-94.8); MONOCYTES 3.7 % (4.7-12.5); NEUTROPHILS 92.1 % (34.0-71.1); RBC 3.41 M/uL (3.93-5.22)
[2025-05-04 15:01] LABS: ALT (SGPT) 96.0 U/L (14-59); AST (SGOT) 56.0 U/L (15-37); GLOMERULAR FILTRATION RATE,EST 27.0 mL/min (>60); PROTEIN, TOTAL 7.1 g/dL (6.4-8.2); UREA NITROGEN 49.0 mg/dL (7-18)
[2025-05-04 15:10] LABS: BLOOD/HGB, URINE MODERATE (Negative); KETONE, URINE NEGATIVE (Negative); LEUK ESTERASE, URINE MODERATE (negative); NITRITE, URINE NEGATIVE (negative)
[2025-05-04 15:17] LABS: EPITHELIAL CELLS, URINE 0 /lpf (0-1+)
[2025-05-04 15:18] LABS: BACTERIA, URINE NONE SEEN /hpf (negative); CASTS, URINE NONE SEEN \\lpf; CRYSTALS, URINE NONE SEEN (0-1+); REFLEX CULTURE, URINE Yes (No)
[2025-05-04] MEDS ORDERED: ACETAMINOPHEN 325 MG TAB PO PRN (16:30)
[2025-05-04] MEDS ORDERED: SODIUM CHLORIDE 0.9% 1,000 ML IV SCH (16:30)
--- NOTE | 2025-05-04 17:10 | NUR ---
PT REPRT RECIEVED FROM ER, RN. PT TRANSPORTED VIA STRETCHER TO MED/SURG FLOOR. PT MOVED VIA SLIDE SHEET PT IS "BED BOUND AT BASELINE" CAREGIVER STATES. PT VITAL SIGNS STABLE UPON ARRIVAL, PT ON RA WITH CAREGIVER PRESENT, PT HAS INCONTINANCE AND PUREWICK IN PLACE, PT ASSESSMENT COMPLETED AND SKIN CHECKED DONE WITH SUMIT BROWNLEE. PT HAS NO PAIN AT THIS TIME AND IV CITE PATENT. PT ORIENTED TO ROOM AND CALL LIGHT IN REACH.
[2025-05-04 17:42] VITALS: BP 148/70
[2025-05-04 18:00] VITALS: BP 148/70
--- NOTE | 2025-05-04 18:48 | NUR ---
PT SITTING UP IN BED, PT HAS BED ALARM ON FOR PT SAFETY AT THIS TIME, PT HAS NO CONCERNS AND HAS CALL LIGHT IN REACH IF NEEDED.
[2025-05-04 22:05] VITALS: BP 129/68
[2025-05-04 22:08] VITALS: BP 129/68
--- NOTE | 2025-05-04 22:11 | NUR ---
SUMIT COOMBS ASKED FOR MY ASSISTANCE TO DO A BRIEF AND LINEN CHANGE FOR THE PATIENT. A BED SORE WAS FOUND ON THE LOWER RIGHT BACK AND REFRACTORY TILE HELPER KRISHNA APPLIED A COVERING. GREEN/BROWN, SLIMEY DISCHARGE WAS FOUND IN THE PATIENTS SOILED BRIEF. PATIENT WAS CLEANED UP AND HAD A NEW PUREWICK INSERTED INTO NEW BRIEF. PATIENT HAD NEW WARM BLANKETS LAYED ACROSS HER BEFORE I DEPARTED FROM ROOM. SUMIT CAZARES NO LONGER NEEDED MY HELP AND REMAINED IN ROOM WHEN I LEFT.
--- NOTE | 2025-05-04 22:17 | NUR ---
pt had dumped coffee oon her bedding, skin dry. Total bed changed. On room air, Lungs dim at bases, unable to do CDB. and soft. was incontinent of urine/purewick in place, noted to have large amount of greenish/beige colore, very thick musus from her vagina, none noted on her rectum, skin care done, slightly pinkish red rectal area, lotion applied. coccyx area closed, red mariah with yellow center, allevyn applied. IVF infusing LAC. moaned and groaned throughout, all cares explained several times, weak legs, attends in place. Tolerating liquids well.
[2025-05-05] VITALS (12 sets, daily range): BP systolic 125–167; BP diastolic 64–82
--- NOTE | 2025-05-05 02:51 | NUR ---
AWAKENS EASILY, ON ROOM AIR, LUNGS DIM AT BASES, PUREWICK IN PLACE, INCONTINENT OF URINE, THICK VAGINAL MUCOID DISCHARGE PRESENT AGAIN, SMALL AMOUNT, SKIN CARE DONE, CLEAN ATTENDS. REPOSITIONED. IVF INFUSIGN W/O PROBLEMS, MOANS AND GROANS EVEN BEFORE BEING TOUCHED OR TURNED. THEN DENIES NEED FOR PAIN MED AT THIS TIME, CALM AND QUIET AFTERWARDS
--- NOTE | 2025-05-05 03:59 | NUR ---
RESTING, EYES CLOSED, IVF INFUSING W/O PROBLEMS. PURE WICK IN PLACE, NO DRAINAGE AT THIS TIME. ALARMS IN PLACE
--- NOTE | 2025-05-05 05:45 | NUR ---
Awakens easily, screams when touched and turned, incontinent of large amount of urine, pure wick in place, no drainage noted. continues to have scant amount of mucoid like vaginal drainage. pericare done. all cares explained, allevyn to R upper buttocks, bruised R hip no changes. All cares explained. tried to hit RN x2, reoriented, calmed down once all cares completed. denies need for pain med
--- NOTE | 2025-05-05 05:45 | NUR ---
PATIENT WAS SLEEPING WHEN I ENTERED THE ROOM. PATIENT WAS WOKEN UP SO LAB COULD DRAW BLOOD. SUMIT CAZARES AND I HELPED PEGGY FROM LAB DRAW BLOOD. 3 ATTEMPTS WERE MADE TO DRAW BLOOD. ONCE LAB WAS FINISHED I GOT VITAL SIGNS WHILE SAGE CHARTED AND TIDIED ROOM. AFTER VITAL SIGNS WERE DONE SAGE AND I CHANGED THE PATIENTS BRIEF AND FRANCHESKA. PATIENT HAD NO FURTHER NEEDS AND HAD THE CALL LIGHT WITHIN REACH.
[2025-05-05 05:55] LABS: BASOPHILS 0.2 % (0.1-1.2); EOSINOPHILS 0.7 % (0.7-5.8); LYMPHOCYTES 9.9 % (19.3-51.7); MCH 30.7 PG (25.6-32.2); MCHC 32.9 g/dL (32.2-35.5); MCV 93.4 fL (79.4-94.8); MONOCYTES 6.2 % (4.7-12.5); NEUTROPHILS 81.8 % (34.0-71.1); RBC 3.03 M/uL (3.93-5.22)
[2025-05-05 06:00] LABS: ALT (SGPT) 108.0 U/L (14-59); AST (SGOT) 105.0 U/L (15-37); GLOMERULAR FILTRATION RATE,EST 33.0 mL/min (>60); PHOSPHORUS, INORGANIC 3.1 mg/dL (2.5-4.9); PROTEIN, TOTAL 5.9 g/dL (6.4-8.2); UREA NITROGEN 46.0 mg/dL (7-18)
--- NOTE | 2025-05-05 07:26 | NUR ---
MORNING REPORT RECIEVED FROM SUMIT CAZARES. PT LAYING IN BED WITH EYES OPEN, PT IS ALERT X2 AND HAS CALL LIGHT IN REACH WITH BED ALARM ON AND CURTAIN OPEN FOR PT SAFETY.
[2025-05-05] MEDS ORDERED: ENOXAPARIN SODIUM 30 MG/0.3 ML SYR SUB-Q SCH (09:00)
--- NOTE | 2025-05-05 09:42 | NUR ---
PT SITTING UP IN BED EATING BREAKFAST, PT HAS NO PAIN AT THIS TIME, PT HAS NO CURRENT CONCERNS AT THIS TIME PT IS STILL CONFUSED BUT IS NEARING THEIR BASELINE COGNITIVE STATE, PT HAS CALL LIGHT IN REACH.
--- NOTE | 2025-05-05 10:05 | NUR ---
PT SITTING UP IN BED. CHANGED HER BLANKETS BECAUSE THE ONES ON TOP OF HER WERE DIRTY FROM SPILLING BREAKFAST. PATIENT TOLD ME TO "STOP TOUCHING ME" SEVERAL TIMES. WITH ANOTHER FIELD OPERATIONS TECHNICIAN, WE MOVED PT UP IN BED SO SHE HAD BETTER POSTURE WHILE SITTING IN BED. PT HAS TV ON. GOT PT FRESH ICE WATER, PT REPORTS NEEDING NOTHING MORE AT THIS TIME. PT'S DIAPER WAS DRY WHEN CHECKED AT 1008 BY THIS FIELD OPERATIONS TECHNICIAN.
--- NOTE | 2025-05-05 10:12 | NUR ---
PT SITTING UP IN BED. I GOT PT FRESH ICE WATER. CALL LIGHT IS ON PT'S LAP ON THE BED, AND I EDUCATED PT ON THE NURSE CALL LIGHT. CHECKED PT'S DIAPER, AND AT 1008 IT WAS DRY. PT REPORTED NEEDING NOTHING MORE FROM ME AT THIS TIME. PT HAS TV ON WITH VOLUME UP.
--- NOTE | 2025-05-05 10:38 | NUR ---
rn asked me to prepare a heat pack for pt's left outside thigh. i wrapped it in a pillowcase and placed it on pt's leg. pt reported it felt "good" and said "thank you."
--- NOTE | 2025-05-05 11:29 | NUR ---
PT REPOSITIONED IN BED, PT YELLED AT THIS RN PT STATED " I HATE YOU AND THEN SAID SORRY". PT HAS CALL LIGHT IN REACH AND HAS NO CURRENT CONCERNS AT THIS TIME.
--- NOTE | 2025-05-05 11:29 | NUR ---
MED REC COMPLETE
[2025-05-05] MEDS ORDERED: PHARMACY RENAL DOSE ADJUSTMENT 1 DOSE MISC PO SCH (12:00)
--- NOTE | 2025-05-05 13:00 | NUR ---
PT LAYING IN BED, PT WAS WET FROM VOIDING IN BRIEF AND PT FULL BED CHANGED, PT TOLERATED FAIRLY, PT DID YELL AND BECAME AGITATED BUT CALMED DOWN WITH REASSURENCE. PT PUREWICK WAS PLACED AND PT LAYING IN BED WITH CLEAN LINENS. CALL LIGHT IN REACH IF NEEDED.
--- NOTE | 2025-05-05 15:18 | NUR ---
PT YELLING IN ROOM, THIS RN ENTERED ROOM AND ASKED PT WHAT THEY WERE DOING PT STATED " THEY WERE YELLING JUST BECAUSE" THIS RN TOLD PT THEY NEEDED TO STOP YELLING AND PT WAS AGREEABLE. PT HAS NO CONCERNS AND CALL LIGHT IN REACH AT THIS TIME.
--- NOTE | 2025-05-05 15:58 | NUR ---
PATIENT IS LAYING IN BED. PATIENT REPORTED PAIN IN LEGS AND RN WAS NOTIFIED. PATIENT WAS PROVIDED WITH A HEAT PACK, A WARM BLANKET AND ICE WATER. PATIENTS CALL LIGHT IS WITHIN REACH AND NO FURTHER NEEDS AT THIS TIME.
--- NOTE | 2025-05-05 17:40 | NUR ---
PATIENT LAYING IN BED. VITAL SIGNS WERE TAKEN. PATIENT REPORTED THE URGE TO USE THE RESTROOM TO URINATE. PATIENT WAS REEDUCATED ABOUT THE PURWICK. PATIENTS BRIEF WAS CHECKED AND WAS DRY. PATIENTS CALL LIGHT IS WITHIN REACH AND NO FURTHER NEEDS AT THIS TIME.
--- NOTE | 2025-05-05 18:31 | NUR ---
PT LAYING IN BED, PT HAS NO CURRENT CONCERNS AT THIS TIME, PT ASKED WHEN SHE CAN GO HOME. THIS RN EXPLANED TO THE PT SHE NEEDS TO GET BETTER AND THE BEST PLACE FOR THAT IS HERE AT THE HOSPITAL RIGHT NOW, PT AGREEABLE AND HAS NO OTHER NEEDS AT THIS TIME CALL LIGHT IN REACH BED ALARM ON FOR PT SAFETY.
--- NOTE | 2025-05-05 20:20 | NUR ---
Awake, watching tv. On room air, lungs clear bilat, abd soft, LBM 05/04, ourewick in place but was incontinent of urine skin care done. clean attends in place. Turned and repositioned. All cares explained prior to, moans and groans then once care is done she denies need for pain meds at this time. Allevyn to R buttocks intact.Purewick changed at this time
--- NOTE | 2025-05-05 23:40 | NUR ---
RESTING, EYES CLOSED, NO S/SX DISTRESS, PURE WICK IN PLACE, BED ALARM
[2025-05-06] VITALS (9 sets, daily range): BP systolic 156–187; BP diastolic 65–88
--- NOTE | 2025-05-06 01:25 | NUR ---
Resting, eyes closed, no s/sx distress. IVF infusing w/o problems. pure wick in place
--- NOTE | 2025-05-06 05:24 | NUR ---
Semi cooperative with lab draws, Kala given on requests. HOB elevated. Purewick in place, draining yellow colored urine. Has incontinent of urine earlier even with purewick in place. Goes back to sleep, Bed alrms in place
[2025-05-06 05:26] LABS: BASOPHILS 0.3 % (0.1-1.2); EOSINOPHILS 0.6 % (0.7-5.8); LYMPHOCYTES 8.0 % (19.3-51.7); MCH 30.4 PG (25.6-32.2); MCHC 32.3 g/dL (32.2-35.5); MCV 93.9 fL (79.4-94.8); MONOCYTES 6.7 % (4.7-12.5); NEUTROPHILS 83.1 % (34.0-71.1); RBC 2.80 M/uL (3.93-5.22)
[2025-05-06 05:44] LABS: ALT (SGPT) 92.0 U/L (14-59); AST (SGOT) 59.0 U/L (15-37); GLOMERULAR FILTRATION RATE,EST 38.0 mL/min (>60); PROTEIN, TOTAL 5.4 g/dL (6.4-8.2); UREA NITROGEN 34.0 mg/dL (7-18)
--- NOTE | 2025-05-06 07:28 | NUR ---
PT RESTING EYES CLOSED AT TIME OF SHIFT REPORT, LEFT UNDISTURBED. FRESH H20 TO BEDSIDE CALL LIGHT IN REACH
--- NOTE | 2025-05-06 07:50 | NUR ---
UR CLINICAL REVIEW: 2 MN FOR [facility]ERSAL[facility]-PER [employer] GRIP MEETS INPT FOR UTI WITH RECENT FALL. TREATMENT WITH IV ABX, PT/OT AND PLACEMENT DISCUSSIONS NEEDED. MEDICARE INPT 05/04/25 @ 1619 ORDER MATCHES REG DISCHARGE PENDING FURTHER CASE MANAGEMENT AND PT/OT EVAL
[2025-05-06] MEDS ORDERED: MAGNESIUM SULFATE 2 GM/50 ML BAG IV SCH (08:15)
--- NOTE | 2025-05-06 10:08 | NUR ---
P/T IN TO WORK WITH PT.
--- NOTE | 2025-05-06 10:43 | NUR ---
DC SHELTERED WORKSHOP EXECUTIVE DIRECTOR IN TO SEE PT WHO CONTINUES TO REFUSE REHAB AT [place]. PT CONTINUES RESTING IN BED OTHERWISE COOPERATIVE
--- NOTE | 2025-05-06 10:51 | NUR ---
PATIENT IS ALERT IN BED. KNOWS SHE IS IN THE HOSPITAL. DOESN'T REMEMBER WHY. REMINDED HER SHE FELL AND HAS A UTI. DISCUSSED WITH PATIENT HER MORE FREQUENT ADMISSIONS TO HOSPITAL AND NEED FOR SNF PLACEMENT. REFUSING SNF AT THIS TIME. STATES SHE WANTS TO GO HOME AND SHE ALSO DOES NOT WANT HOME HEALTH BECAUSE SHE STATES "THOSE PEOPLE DON'T TAKE CARE OF YOU." ENCOURAGED TO RECONSIDER PLACEMENT FOR HER SAFETY. STATES SHE WILL "THINK ABOUT IT."
--- NOTE | 2025-05-06 12:46 | NUR ---
PT SELF FEEDS NOON MEAL EATS NEARLY 1/2. REFUSES ENSURE OFFER. STATES SHE IS AGREEABLE TO REHAB AT TIME OF DC. DC PIN INSERTER NOTIFIED.
--- NOTE | 2025-05-06 12:56 | NUR ---
ALERT AND ORIENTED. STATES SHE IS AGREEABLE TO GO TO SNF AT THIS TIME. STATES SHE WILL GO TO [facility], [facility] OR [facility]. WILL SEND REFERRALS TO THESE FACILITIES
--- NOTE | 2025-05-06 13:22 | NUR ---
SNF REFERRAL SENT TO [facility], [facility] AND [facility]
--- NOTE | 2025-05-06 13:58 | NUR ---
PATIENT IN BED AT THIS TIME. VITALS AND I&O'S DONE AND CHARTED. CALL LIGHT IN REACH. BED ALARM ON. NO FURTHER NEEDS AT THIS TIME.
--- NOTE | 2025-05-06 14:07 | NUR ---
PT RESTING EYES CLOSED
--- NOTE | 2025-05-06 16:29 | NUR ---
PT RESTING IN BED UNDERGARMENT IS CLEAN DRY AND INTACT. SHE AGREES SHE IS COMFORTABLE WITHOUT NEED OF
--- NOTE | 2025-05-06 17:37 | NUR ---
PT EATS A FEW BITES OF EVENING MEAL THEN RETURNS TO RESTING EYES CLOSED
--- NOTE | 2025-05-06 19:10 | NUR ---
GERMAN AND I GAVE PATIENT A QUICK COMPLETE BED BATH. CHANGED HER TAPED ATTEND AND CATHIECK NEW GOWN. NEW DRAW SHEET AND FRANCHESKA. GERMAN ALSO GOT HER A WARM BLANKET.
--- NOTE | 2025-05-06 19:15 | NUR ---
REPORT RECEIVED FROM IDA ARANA. pt BEING CHANGED BY DAY SHIFT CNAS. BRIEF CHANGED. BOARD UPDATED. pt DENIES ANY OTHER NEEDS AT THIS TIME. CALL LIGHT WITHIN REACH.
[2025-05-06] MEDS ORDERED: MAGNESIUM HYDROXIDE/AL HYDROX 30 ML CUP PO PRN (19:30)
--- NOTE | 2025-05-06 20:30 | NUR ---
ASSESSMENT AND VITAL SIGNS DONE. IV ASSESSED AND LEAKING THIS RN DC'D IV. FLOAT SUMIT ANDRADE STARTED NEW IV. pt C/O HEART BURN. PRN HEART BURN MEDS ADMINISTERED. pt REPOSITIONED IN THE BED. pt DENIES ANY OTHER NEEDS AT THIS TIME. CALL LIGHT WITHIN REACH.
--- NOTE | 2025-05-06 22:17 | NUR ---
IN RM FOR BEEPING IV. NEW IV BAG INFUSING PER ORDER. pt DENIES ANY OTHER NEEDS AT THIS TIME. CALL LIGHT WITHIN REACH.
--- NOTE | 2025-05-06 23:59 | NUR ---
pt IV ALARMING. IV OCCLUDED. THIS RN IN TO RESTART IV AND CHECK TUBING. IV RESTARTED AND INFUSING PER ORDER. pt RESTING IN THE BED WITH EYES CLOSED. RR EVEN AND UNLABORED. CALL LIGHT WITHIN REACH.
--- NOTE | 2025-05-07 02:01 | NUR ---
pt RESTING IN THE BED WITH EYES CLOSED. RR EVEN AND UNLABORED. CALL LIGHT WITHIN REACH.
--- NOTE | 2025-05-07 03:18 | NUR ---
pt RESTING IN THE BED. pt GLASSES PLACED ON SIDE TABLE. pt REPOSITIONED IN THE BED. pt ASKED FOR COFFEE. pt REMINDED THAT IT IS 0300 AND pt AGREED TO TRY AND GO TO SLEEP. pt DENIES ANY OTHER NEEDS AT THIS TIME. CALL LIGHT WITHIN REACH.
--- NOTE | 2025-05-07 05:02 | NUR ---
pt RESTING IN THE BED WITH EYES CLOSED. RR EVEN AND UNLABORED. CALL LIGHT WITHIN REACH.
[2025-05-07 05:33] VITALS: BP 151/63
[2025-05-07 05:38] LABS: BASOPHILS 0.3 % (0.1-1.2); EOSINOPHILS 0.9 % (0.7-5.8); LYMPHOCYTES 11.4 % (19.3-51.7); MCH 31.0 PG (25.6-32.2); MCHC 33.2 g/dL (32.2-35.5); MCV 93.4 fL (79.4-94.8); MONOCYTES 6.1 % (4.7-12.5); NEUTROPHILS 80.0 % (34.0-71.1); RBC 2.71 M/uL (3.93-5.22)
[2025-05-07 05:44] VITALS: BP 151/63
--- NOTE | 2025-05-07 05:48 | NUR ---
IN RM TO HELP WITH LAB DRAW AND TO CHANGE pt BRIEF AND PURE WICK AND DO VITAL SIGNS. pt FLOATED WITH PILLOWS BEHIND BOTH HIPS. pt DENIES ANY OTHER NEEDS AT THIS TIME. CALL LIGHT WITHIN REACH.
[2025-05-07 05:53] LABS: ALT (SGPT) 61.0 U/L (14-59); AST (SGOT) 31.0 U/L (15-37); GLOMERULAR FILTRATION RATE,EST 41.0 mL/min (>60); PROTEIN, TOTAL 5.1 g/dL (6.4-8.2); UREA NITROGEN 28.0 mg/dL (7-18)
--- NOTE | 2025-05-07 07:36 | NUR ---
LUIS FELIPE REPORT RECEIVED FROM SUMIT RILEY. PT LAYING IN BED WITH EYES CLOSED CHEST RISE EQUAL BILAT. PT HAS BED ALARM ACTIVE AND CURTAIN OPEN FOR PT SAFETY. IN REPORT PT WAS AGREEABLE TO A SNF AND CASE MANAGEMENT IS AWARE. PT CALL LIGHT IN REACH AT THIS TIME.
--- NOTE | 2025-05-07 09:25 | NUR ---
Spoke withDorothy. She denies needs. She is her same precocious self, wanting to know why I got my haircut. She cannot decide if she likes it. I asked her if she is still agreeable to placement at a SNF. She would like [facility] in [place] if possible. I let her know her chart has been sent to three places. She shows me the brochures she was given yesterday.
[2025-05-07 10:00] VITALS: BP 146/65
--- NOTE | 2025-05-07 10:14 | NUR ---
PT SITTIGN UP IN BED AT THIS TIME, PT IS PLEASANT THIS MORNING AND EXCITED TO BE POSSIBLY GOING TO SNF. PT HAS NO CONCERNS AT THIS TIME AND DENIES PAIN. CALL LIGHT IN REACH.
[2025-05-07 10:30] VITALS: BP 146/65
--- NOTE | 2025-05-07 10:50 | NUR ---
Received a call from Jose Armando at [facility]. He states they are willing to take Rhina, but only if she is agreeable to work with PT. I tried to explain Rhina is never agreeable, but will work with PT/OT. She can be difficult but is agreeable to most anything you ask. He asks I go speak with her and confirm she will work with PT. I will let him know. I then received a text from Nicole at [facility]. They are having a staffing meeting tomorrow and will know if they have beds open. I then received a call from Anne at [facility]. She is requesting a med list and are planning on accepting this pt today. Med list faxed. Spoke with Dr. Beyer and pt is ready for dc today.I called the [facility] van and they can take this pt at 12:30 today. Charge nurse notified. Anne notified the [facility] van will pick this pt up at 12:30.
[2025-05-07] MEDS ORDERED: CEFDINIR300 MG PO (11:12)
--- NOTE | 2025-05-07 11:22 | NUR ---
Written Snf orders recieved from Dr. Beyer and faxed to Anne at [facility].
[2025-05-07 11:32] VITALS: BP 166/71
--- NOTE | 2025-05-07 11:32 | NUR ---
VISITED DURING SPIRITUAL CARE ROUNDS. PT CONVERSANT BUT LOSES TRACK EASILY, AWARE OF CONFUSION, EMOTIONAL. TALKED OF CONCERNS REGARDING FUTURE, EXPRESSED SADNESS, WORRY. MERCHANDISE SHOPPER PROVIDED SUPPORTIVE PRESENCE, PRAYER, ANXIETY CONTAINMENT. PT EXPRESSED GRATITUDE FOR VISIT, HOPE FOR FUTURE.
--- NOTE | 2025-05-07 11:50 | NUR ---
Chart taken to the desk to go with transport.
--- NOTE | 2025-05-07 13:06 | NUR ---
DC summary faxed to Anne at [facility].
--- NOTE | 2025-05-07 13:09 | NUR ---
MARIA EUGENIA CALLED TO [facility], REPORT RECIEVED FROM HITESH, ALL QUESTIONS ANSWERED AND NO CURRENT NEEDS FROM THEM AT THIS TIME.
== END 2025-05-07 12:30 | DRG 690 ==
LOC: ED 12:58 → MS 16:41
PROVIDERS: Emergency Medicine; ADMIT Family Medicine; ATTEND Family Medicine
DX: N39.0 Urinary tract infection, site not specified (principal); N17.9 Acute kidney failure, unspecified; R91.8 Other nonspecific abnormal finding of lung field; F03.90 Unspecified dementia, unspecified severity, without behavioral disturbance, psychotic disturbance, mood disturbance, and anxiety; M19.90 Unspecified osteoarthritis, unspecified site; E83.42 Hypomagnesemia; Z66 Do not resuscitate; I25.2 Old myocardial infarction; Z60.2 Problems related to living alone; Z91.81 History of falling; Z88.8 Allergy status to other drugs, medicaments and biological substances; Z86.73 Personal history of transient ischemic attack (TIA), and cerebral infarction without residual deficits
CPT/HCPCS: 36415; 51701; 70450; 72125; 72170; 80053; 81001; 82550; 83735; 84100; 85025; 85060; 87088; 96365; 97162; 97167; 99285-25; A9270; J0696; J1650; J3475; J7030

== ENCOUNTER 2025-06-11 06:42 | Emergency (ER) | payer MEDICARE, OTHER ==
[~2025-06-11] VITALS: Ht 162.6 cm; Wt 44.0 kg
--- OUTSIDE RECORDS SUMMARY | ~2025-06-11 | XMS | Continuity of Care Document ---
Demographics + + + | Address | [address] | | | [place] [address] | + + + | Preferred Language | Unknown | + + + | Marital Status | | + + + | Zoroastrianism Affiliation | Unknown | + + + | Race | White | + + + | Ethnic Group | Not or | + + + Author + + + | Author | [place] | + + + | Organization | [facility] | + + + | Address | [address] | | | [place] [address] | + + + | Phone | | + + + Care Team Providers + + + + | Care Lumber Estimator Name | Role | Phone | + + + + Unavailable | Unavailable | + + + + Unavailable | Unavailable | + + + + Allergies No information. Encounters No information. Functional Status No information. Immunizations No information. Medications + + + + | date | description | facility | + + + + | (no date) | LISINOPRIL | [facility] | | | | [facility] | + + + + | (no date) | IBUPROFEN | [facility] | | | | [facility] | + + + + | (no date) | ACETAMINOPHEN | [facility] | | | | [facility] | + + + + | (no date) | AZITHROMYCIN | [facility] | | | | [facility] | + + + + | (no date) | LEVETIRACETAM | [facility] | | | | [facility] | + + + + | 2025-04-30 00:00 | AMOXICILLIN/POTASSIUM CLAV | [facility] | | | | [facility] | + + + + | (no date) | ATORVASTATIN CALCIUM | [facility] | | | | [facility] | + + + + | (no date) | METOPROLOL TARTRATE | [facility] | | | | [facility] | + + + + Problems + + + + | date | description | facility | + + + + | 2025-04-25 00:00 | Acute renal failure | [facility] | | | | [facility] | + + + + | 2025-04-25 00:00 | Uremia | [facility] | | | | [facility] | + + + + Procedures No information. Results/Labs +--------+--------+ +---------+--------+---------+ | test | date | facility | value | unit | notes | +--------+--------+ +---------+--------+---------+ + + | Result panel 1 | + + + + + +-------+ + + | Prot | 2025-04-25 | | 8.0 | (missing) | (missing) | | [facility] | 13:53:07 | [facility] | | | | + + + +-------+ + + + + | Result panel 2 | + + + + + +-------+ + + | Albumin | 2025-04-25 | | 2.9 | (missing) | (missing) | | [facility] | 13:53:07 | [facility] | | | | + + + +-------+ + + + + | Result panel 3 | + + + + + +-------+ + + | Globulin | 2025-04-25 | | 5.1 | (missing) | (missing) | | Ser-mCnc | 13:53:07 | [facility] | | | | + + + +-------+ + + + + | Result panel 4 | + + + + + +--------+ + + | | 2025-04-25 | | 0.57 | (missing) | (missing) | | Albumin/Glob | 13:53:07 | [facility] | | | | + + + +--------+ + + + + | Result panel 5 | + + + + + +-------+---------+ + | Bilirub | 2025-04-25 | | 0.4 | mg/dL | (missing) | | [facility] | 13:53:07 | [facility] | | | | + + + +-------+---------+ + + + | Result panel 6 | + + + + + +------+ + + | AST | 2025-04-25 | | 16 | (missing) | (missing) | | [facility] | 13:53:07 | [facility] | | | | + + + +------+ + + + + | Result panel 7 | + + + + + +------+ + + | ALT | 2025-04-25 | | 25 | (missing) | (missing) | | [facility] | 13:53:07 | [facility] | | | | + + + +------+ + + + + | Result panel 8 | + + + + + +-------+ + + | ALP | 2025-04-25 | | 130 | (missing) | (missing) | | Ser[facility]-cCnc | 13:53:07 | [facility] | | | | + + + +-------+ + + + + | Result panel 9 | + + + + + +--------+ + + | Troponin I | 2025-04-25 | | 29.6 | (missing) | (missing) | | [facility] | 13:53:07 | [facility] | | | | | HS-mCnc [facility] | | | | + + + +--------+ + + + + | Result panel 10 | + + + + + +---------+ + + | TSH SerPl | 2025-04-25 | | 3.307 | (missing) | (missing) | | DL<=0.005 | 13:53:07 | [facility] | | | | | mIU/L-aCnc [facility] | | | | + + + +---------+ + + + + | Result panel 11 | + + + + + +-------+ + + | Osmolality | 2025-04-25 | | 284 | (missing) | (missing) | | SerPl | 13:53:07 | [facility] | | | | + + + +-------+ + + + + | Result panel 12 | + + + + + +---------+---------+ + | Creat | 2025-04-25 | | 89.85 | mg/dL | (missing) | | Ur-mCnc | 18:06:07 | [facility] | | | | + + + +---------+---------+ + + + | Result panel 13 | + + + + + +-------+ + + | Sodium | 2025-04-25 | | 107 | (missing) | (missing) | | Ur-sCnc | 18:06:07 | [facility] | | | | + + + +-------+ + + + + | Result panel 14 | + + + + + +-------+ + + | Osmolality | 2025-04-25 | | 438 | (missing) | (missing) | | Ur | 18:06:07 | [facility] | | | | + + + +-------+ + + + + | Result panel 15 | + + + + + + + + + | | 2025-04-25 | | (missing) | (missing) | (missing) | | Electrocardi | 18:28 | [facility] | | | | | ogram [facility] | | | | + + + + + + + + + | Result panel 16 | + + + + + +-------+---------+ + | Phosphate | 2025-04-26 | | 4.6 | mg/dL | (missing) | | [facility] | 05:50:07 | [facility] | | | | + + + +-------+---------+ + + + | Result panel 17 | + + + + + +---------+ + + | WBC # Bld | 2025-04-28 | | 10.82 | (missing) | (missing) | | Auto | 05:05:07 | [facility] | | | | + + + +---------+ + + + + | Result panel 18 | + + + + + +--------+ + + | RBC # Bld | 2025-04-28 | | 2.69 | (missing) | (missing) | | Auto | 05:05:07 | [facility] | | | | + + + +--------+ + + + + | Result panel 19 | + + + + + +-------+ + + | Hgb | 2025-04-28 | | 8.2 | (missing) | (missing) | | Bld-mCnc | 05:05:07 | [facility] | | | | + + + +-------+ + + + + | Result panel 20 | + + + + + +--------+ + + | Hct VFr.DF | 2025-04-28 | | 25.3 | (missing) | (missing) | | Bld Auto | 05:05:07 | [facility] | | | | + + + +--------+ + + + + | Result panel 21 | + + + + + +--------+ + + | RBC Auto | 2025-04-28 | | 94.1 | (missing) | (missing) | | | 05:05:07 | [facility] | | | | + + + +--------+ + + + + | Result panel 22 | + + + + + +--------+ + + | MCH RBC Qn | 2025-04-28 | | 30.5 | (missing) | (missing) | | Auto | 05:05:07 | [facility] | | | | + + + +--------+ + + + + | Result panel 23 | + + + + + +--------+ + + | MCHC RBC | 2025-04-28 | | 32.4 | (missing) | (missing) | | Auto-EntMCnc | 05:05:07 | [facility] | | | | + + + +--------+ + + + + | Result panel 24 | + + + + + +-------+ + + | Platelet # | 2025-04-28 | | 416 | (missing) | (missing) | | Bld Auto | 05:05:07 | [facility] | | | | + + + +-------+ + + + + | Result panel 25 | + + + + + +--------+ + + | Neutrophils | 2025-04-28 | | 75.0 | (missing) | (missing) | | NFr Bld | 05:05:07 | [facility] | | | | Auto | [facility] | | | | + + + +--------+ + + + + | Result panel 26 | + + + + + +--------+ + + | Lymphocytes | 2025-04-28 | | 11.1 | (missing) | (missing) | | NFr Bld | 05:05:07 | [facility] | | | | Auto | [facility] | | | | + + + +--------+ + + + + | Result panel 27 | + + + + + +--------+ + + | Monocytes | 2025-04-28 | | 11.4 | (missing) | (missing) | | NFr Bld Auto | 05:05:07 | [facility] | | | | + + + +--------+ + + + + | Result panel 28 | + + + + + +-------+ + + | Eosinophil | 2025-04-28 | | 0.6 | (missing) | (missing) | | NFr Bld Auto | 05:05:07 | [facility] | | | | + + + +-------+ + + + + | Result panel 29 | + + + + + +-------+ + + | Basophils | 2025-04-28 | | 0.6 | (missing) | (missing) | | NFr Bld Auto | 05:05:07 | [facility] | | | | + + + +-------+ + + + + | Result panel 30 | + + + + + +-------+---------+ + | Magnesium | 2025-04-28 | | 1.7 | mg/dL | (missing) | | [facility] | 05:05:07 | [facility] | | | | + + + +-------+---------+ + + + | Result panel 31 | + + + + + +-------+---------+ + | Glucose | 2025-04-29 | | 114 | mg/dL | (missing) | | [facility]Pdanish-mCgiuliano | 05:10:07 | [facility] | | | | + + + +-------+---------+ + + + | Result panel 32 | + + + + + +------+---------+ + | BUN | 2025-04-29 | | 30 | mg/dL | (missing) | | [facility] | 05:10:07 | [facility] | | | | + + + +------+---------+ + + + | Result panel 33 | + + + + + +--------+---------+ + | Creat | 2025-04-29 | | 1.71 | mg/dL | (missing) | | [facility]danish-[facility] | 05:10:07 | [facility] | | | | + + + +--------+---------+ + + + | Result panel 34 | + + + + + +------+ + + | eGFRcr | 2025-04-29 | | 29 | (missing) | (missing) | | SerPlBld | 05:10:07 | [facility] | | | | | CKD-EPI 2020 | [facility] | | | | + + + +------+ + + + + | Result panel 35 | + + + + + +---------+ + + | BUN/Creat | 2025-04-29 | | 17.54 | (missing) | (missing) | | SerPl | 05:10:07 | [facility] | | | | + + + +---------+ + + + + | Result panel 36 | + + + + + +-------+ + + | Sodium | 2025-04-29 | | 135 | (missing) | (missing) | | SerPl-sCnc | 05:10:07 | [facility] | | | | + + + +-------+ + + + + | Result panel 37 | + + + + + +-------+ + + | Potassium | 2025-04-29 | | 3.8 | (missing) | (missing) | | [facility] | 05:10:07 | [facility] | | | | + + + +-------+ + + + + | Result panel 38 | + + + + + +-------+ + + | Chloride | 2025-04-29 | | 106 | (missing) | (missing) | | [facility] | 05:10:07 | [facility] | | | | + + + +-------+ + + + + | Result panel 39 | + + + + + +------+ + + | CO2 | 2025-04-29 | | 19 | (missing) | (missing) | | SerPl-sCnc | 05:10:07 | [facility] | | | | + + + +------+ + + + + | Result panel 40 | + + + + + +--------+ + + | Anion Gap | 2025-04-29 | | 13.8 | (missing) | (missing) | | SerPl | 05:10:07 | [facility] | | | | | Calculated.4 | [facility]-s[facility]nc | [facility] | | | | + + + +--------+ + + + + | Result panel 41 | + + + + + +-------+---------+ + | Calcium | 2025-04-29 | | 8.6 | mg/dL | (missing) | | SerPl-mCnc | 05:10:07 | [facility] | | | | + + + +-------+---------+ + + + | Result panel 42 | + + + + + + + + + | Color Ur | 2025-04-29 | | YELLOW | (missing) | (missing) | | Auto | 18:53:07 | [facility] | | | | + + + + + + + + + | Result panel 43 | + + + + + + + + + | | 2025-04-29 | | NORMAL | (missing) | (missing) | | Urobilinogen | 18:53:07 | [facility] | | | | | Ur | | - | | | | | [facility] | | [facility] | | | | + + + + + + + + + | Result panel 44 | + + + + + + + + + | Nitrite Ur | 2025-04-29 | | NEGATIVE | (missing) | (missing) | | Ql Strip | 18:53:07 | [facility] | | | | + + + + + + + + + | Result panel 45 | + + + + + +---------+ + + | Leukocyte | 2025-04-29 | | LARGE | (missing) | (missing) | | esterase Ur | 18:53:07 | [facility] | | | | | Ql Strip | [facility] | | | | + + + +---------+ + + + + | Result panel 46 | + + + + + +--------+ + + | RBC #/area | 2025-04-29 | | 7-11 | (missing) | (missing) | | UrnS HPF | 18:53:07 | [facility] | | | | + + + +--------+ + + + + | Result panel 47 | + + + + + +-------+ + + | WBC #/area | 2025-04-29 | | >50 | (missing) | (missing) | | UrnS HPF | 18:53:07 | [facility] | | | | + + + +-------+ + + + + | Result panel 48 | + + + + + + + + + | Epi Cells | 2025-04-29 | | NONE SEEN | (missing) | (missing) | | #/area UrnS | 18:53:07 | [facility] | | | | | HPF | [facility] | | | | + + + + + + + + + | Result panel 49 | + + + + + + + + + | Crystals | 2025-04-29 | | NONE SEEN | (missing) | (missing) | | UrnS Micro | 18:53:07 | [facility] | | | | + + + + + + + + + | Result panel 50 | + + + + + +------+ + + | Bacteria | 2025-04-29 | | 1+ | (missing) | (missing) | | #/area Pam | 18:53:07 | [facility] | | | | | HPF | [facility] | | | | + + + +------+ + + + + | Result panel 51 | + + + + + + + + + | Casts | 2025-04-29 | | NONE SEEN | (missing) | (missing) | | #/area UrnS | 18:53:07 | [facility] | | | | | [facility] | | - | | | | | | | [facility] | | | | + + + + + + + + + | Result panel 52 | + + + + + +-------+ + + | Bacteria Ur | 2025-04-29 | | Yes | (missing) | (missing) | | Cult | 18:53:07 | [facility] | | | | + + + +-------+ + + + + | Result panel 53 | + + + + + + + + + | Character | 2025-04-29 | | CLOUDY | (missing) | (missing) | | Ur | 18:53:07 | [facility] | | | | + + + + + + + + + | Result panel 54 | + + + + + + + + + | Urn Spec | 2025-04-29 | | CLEAN CATCH | (missing) | (missing) | | Collect Meth | 18:53:07 | [facility] | | | | | Ur | [facility] | | | | + + + + + + + + + | Result panel 55 | + + + + + + + + + | Glucose Ur | 2025-04-29 | | NEGATIVE | (missing) | (missing) | | Ql Strip | 18:53:07 | [facility] | | | | + + + + + + + + + | Result panel 56 | + + + + + + + + + | Bilirub Ur | 2025-04-29 | | NEGATIVE | (missing) | (missing) | | Ql Strip | 18:53:07 | [facility] | | | | + + + + + + + + + | Result panel 57 | + + + + + + + + + | Ketones Ur | 2025-04-29 | | NEGATIVE | (missing) | (missing) | | Ql Strip | 18:53:07 | [facility] | | | | + + + + + + + + + | Result panel 58 | + + + + + +---------+ + + | Sp Gr Ur | 2025-04-29 | | 1.010 | (missing) | (missing) | | Strip | 18:53:07 | [facility] | [facility] | [facility] - [facility] | | | [facility] | | | | + + + +---------+ + + + + | Result panel 59 | + + + + + + + + + | Hgb Ur Ql | 2025-04-29 | | MODERATE | (missing) | (missing) | | Strip | 18:53:07 | [facility] | | | | + + + + + + + + + | Result panel 60 | + + + + + +-------+ + + | pH Ur Strip | 2025-04-29 | | 5.5 | (missing) | (missing) | | | 18:53:07 | [facility] | | | | + + + +-------+ + + + + | Result panel 61 | + + + + + + + + + | Prot Ur | 2025-04-29 | | NEGATIVE | (missing) | (missing) | | Strip-mCnc | 18:53:07 | [facility] | | | | + + + + + + + Social History +--------+ + + | date | description | facility | +--------+ + + Vital Signs + + + +---------+ | date | measurement | value | units | + + + +---------+ | 2025-04-26 00:00 | BMI | 16.8 | kg/m2 | + + + +---------+ | 2025-04-26 00:00 | height_metric | 162.56 | cm | + + + +---------+ | 2025-04-26 00:00 | height_standard | 64 | in | + + + +---------+ | 2025-04-26 00:00 | weight_metric | 44.452 | kg | + + + +---------+ | 2025-04-26 00:00 | weight_standard | 98.000 | lb | + + + +---------+ | 2025-04-30 00:00 | BP_diastolic | 85 | mmHg | + + + +---------+ | 2025-04-30 00:00 | BP_systolic | 162 | mmHg | + + + +---------+ | 2025-04-30 00:00 | heart_rate | 97 | /min | + + + +---------+ | 2025-04-30 00:00 | o2_saturation | 99 | % | + + + +---------+ | 2025-04-30 00:00 | respiration_rate | 18 | /min | + + + +---------+ | 2025-04-30 00:00 | | 97.8 | F | | | temperature_standar | | | | | d | | | + + + +---------+"
[~2025-06-11 06:42] MED LIST changes: +CEFDINIR300 MG PO
--- OUTSIDE RECORDS SUMMARY | 2025-06-11 06:49 | XMS ---
PreManage Notification: CORIN WILKINSON Security Advanced Developer Events No recent Security Events currently on file CRITERIA MET - Group Notification CARE PROVIDERS -, [facility] Dentist: Detective Chief Current Darryl PHONE: [phone] ANNABELLE PATTEN Internal Medicine Current PHONE: Unknown JESSICA YE Nurse Practitioner: Family Current PHONE: [phone] [facility] Current FAMILY PHONE: [phone] TIFFANY QUINONEZ Physician Fuse Coiler Florentin PINEDAIE PHONE: [phone] DEONDRE LINARES Nurse Practitioner: Adult Health Florentin CLAIRE PHONE: [phone] Darryl HAMILTON Emergency Preparedness Coordinator/Pipeline Controller Current PHONE: [phone] [facility] Current PHONE: Unknown [facility] has no Care Guidelines for this patient. E.D. VISIT COUNT (12 MO.) 4 [facility] [place] TOTAL 4 NOTE: Visits indicate total known visits. ED/UCC VISIT TRACKING (12 MO.) 06/11/2025 06:43 [facility] [place] TYPE: Emergency COMPLAINT: - FALL 05/04/2025 12:58 [facility] [place] TYPE: Emergency COMPLAINT: - FALL 04/25/2025 13:15 [facility] [place] TYPE: Emergency COMPLAINT: - WEAKNESS 02/12/2025 13:00 [facility] [place] TYPE: Emergency COMPLAINT: - URINE PROBLEM INPATIENT VISIT TRACKING (12 MO.) 05/04/2025 16:41 [facility] [place] TYPE: Medical Surgical COMPLAINT: - UTI,FALLS DIAGNOSES: - Acute kidney failure, unspecified - Acute kidney failure, unspecified - Allergy status to other drugs, medicaments and biological substances - Allergy status to other drugs, medicaments and biological substances - Do not resuscitate - Do not resuscitate - History of falling - History of falling - Hypomagnesemia - Hypomagnesemia - Old myocardial infarction - Old myocardial infarction - Other nonspecific abnormal finding of lung field - Other nonspecific abnormal finding of lung field - Personal history of transient ischemic attack [...] - Urinary tract infection, site not specified 04/25/2025 17:[address] [facility] [place] TYPE: Medical Surgical COMPLAINT: - UTI/FTT [...] other foods - Atherosclerotic heart disease of [place] coronary artery without angina pectoris - Atherosclerotic heart disease of [place] coronary artery without angina pectoris - Body [...] and hyponatremia - Hypo-osmolality and hyponatremia - custodial (current) use of anticoagulants - custodial (current) use of anticoagulants - Old myocardial infarction - Old myocardial infarction - Other correction (current) drug therapy - Other terminal make up operator (current) drug therapy - Other specified [...] specified - Weakness 02/12/2025 14:[address] [facility] [place] TYPE: Medical Surgical COMPLAINT: - [...] other arteries - Atherosclerotic heart disease of [place] coronary artery without angina pectoris - Atherosclerotic heart disease of [place] coronary artery without angina pectoris - Bacteremia [...] the cause of diseases classified elsewhere - custodial (current) use of non-steroidal anti-inflammatories (NSAID) - custodial (current) use of non-steroidal anti-inflammatories (NSAID) - Nicotine dependence, cigarettes, uncomplicated - Nicotine dependence, cigarettes, uncomplicated - Old myocardial infarction - Old myocardial infarction - Other terminal make up operator (current) drug therapy - Other correction (current) drug therapy - Other malaise - [...] - Urinary tract infection, site not specified [email or web address]
[2025-06-11 07:10] LABS: BASOPHILS 0.6 % (0.1-1.2); EOSINOPHILS 0.2 % (0.7-5.8); LYMPHOCYTES 13.2 % (19.3-51.7); MCH 31.3 PG (25.6-32.2); MCHC 33.2 g/dL (32.2-35.5); MCV 94.3 fL (79.4-94.8); MONOCYTES 5.6 % (4.7-12.5); NEUTROPHILS 79.9 % (34.0-71.1); RBC 3.32 M/uL (3.93-5.22)
[2025-06-11] MEDS ORDERED: CELEXA10 MG PO (07:13)
[2025-06-11] MEDS ORDERED: BISACODYL10 MG PR (07:13)
[2025-06-11 07:25] LABS: ALT (SGPT) 23.0 U/L (14-59); AST (SGOT) 19.0 U/L (15-37); GLOMERULAR FILTRATION RATE,EST 13.0 mL/min (>60); PROTEIN, TOTAL 7.6 g/dL (6.4-8.2); UREA NITROGEN 94.0 mg/dL (7-18)
[2025-06-11 08:24] LABS: BLOOD/HGB, URINE MODERATE (Negative); KETONE, URINE NEGATIVE (Negative); LEUK ESTERASE, URINE LARGE (negative); NITRITE, URINE NEGATIVE (negative)
[2025-06-11 08:25] LABS: CRYSTALS, URINE NONE SEEN (0-1+); EPITHELIAL CELLS, URINE SQUAMOUS 1+ /lpf (0-1+)
[2025-06-11 08:26] LABS: BACTERIA, URINE NONE SEEN /hpf (negative); CASTS, URINE NONE SEEN \\lpf; REFLEX CULTURE, URINE Yes (No)
[2025-06-11 08:32] LABS: AMPHETAMINES, URINE NEGATIVE (NEGATIVE); BARBITURATES, URINE NEGATIVE (NEGATIVE); BENZODIAZEPINE, URINE NEGATIVE (NEGATIVE); CANNABINOID, URINE NEGATIVE (NEGATIVE); COCAINE, URINE NEGATIVE (NEGATIVE); ECSTASY, URINE NEGATIVE (NEGATIVE); FENTANYL, URINE NEGATIVE (NEGATIVE); METHADONE, URINE NEGATIVE (NEGATIVE); OPIATES, URINE NEGATIVE (NEGATIVE); OXYCODONE, URINE NEGATIVE (NEGATIVE); PHENCYCLIDINE, URINE NEGATIVE (NEGATIVE)
[2025-06-11] MEDS ORDERED: SODIUM CHLORIDE 0.9% 1,000 ML IV PRN (09:00)
[2025-06-11] MEDS ORDERED: CEPHALEXIN500 MG PO (09:34)
[2025-06-11 15:16] VITALS: BP 124/61
== END 2025-06-11 15:15 | disposition home or self-care (01) ==
LOC: ED 06:42
PROVIDERS: Internal Medicine
DX: M54.2 Cervicalgia (principal); R51.9 Headache, unspecified; N17.9 Acute kidney failure, unspecified; N39.0 Urinary tract infection, site not specified; E78.5 Hyperlipidemia, unspecified; I25.2 Old myocardial infarction; Z91.81 History of falling; Z86.73 Personal history of transient ischemic attack (TIA), and cerebral infarction without residual deficits; Z88.8 Allergy status to other drugs, medicaments and biological substances; Z91.018 Allergy to other foods; Z79.899 Other long term (current) drug therapy
CPT/HCPCS: 36415; 70450; 71045; 72125; 72170; 80053; 80307; 81001; 85025; 87088; 96374; 99284-25; J0696; J7030